=== PATIENT | female | born 1985 | race Hispanic/Latino ===

== ENCOUNTER 2020-11-09 14:06 | Emergency (ER) | payer OTHER, SELFPAY ==
[2020-11-09 14:15] VITALS: BP 142/98; PULSE 86; RESP 16; TEMP 37.2; O2SAT 99
--- NOTE | 2020-11-09 15:08 | ED.URI ---
HPI - URI/Sore Throat General Chief Complaint: Upper Respiratory Infection Stated Complaint: Sore Throat Time Seen by Provider: 11/09/20 14:40 Source: patient, family and RN notes reviewed Mode of arrival: ambulatory Limitations: no limitations History of Present Illness HPI Narrative: 35 year old female who presents to [facility] with complaints of sore throat, cough and runny nose since Tuesday.Patient reports that her throat is burning rates her pain 5/10 and is aggravated with swallowing. She states that her cough is frequent and is dry, Patient denies any fevres, chills or sweats, denies any ear pain or any GI symptoms. She has been taking OTC Tylenol cough and cold medication for her symptoms without resolution. MD elicited complaint: cough, sore throat and rhinorrhea Related Data Home Medications Medication Instructions Recorded Confirmed ergocalciferol (vitamin D2) 11/09/20 erythromycin with ethanol TOPICAL 11/09/20 ferrous sulfate [FeroSul] mg 11/09/20 norethindrone-e.estradiol-iron tablet 11/09/20 [Aurovela Fe 1-20 (28)] sumatriptan succinate mg PO 11/09/20 Allergies Allergy/AdvReac Type Severity Reaction Status Date / Time No Known Allergies Allergy Verified 03/14/19 06:43 Review of Systems Review of Systems: CONSTITUTIONAL: Denies fever, chills, or sweats. EYES: Denies visual changes, redness, or discharge. ENT: Positive for rhinorrhea, congestion, sore throat, no otalgia. CARDIOVASCULAR: Denies chest pain, palpitations, or edema. RESPIRATORY: positive for acute cough denies dyspnea. GASTROINTESTINAL: Denies abdominal pain, nausea, vomiting, or diarrhea. GENITOURINARY: Denies dysuria or hematuria. SKIN: Denies rash or itching. MUSCULOSKELETAL: Denies back pain, joint pain, or myalgia. NEUROLOGIC: Denies headache, numbness, or weakness. PSYCHIATRIC: Denies anxiety or depression. All systems reviewed & are unremarkable except as noted in HPI and below PMFSH Past Medical History Medical History (Updated 11/11/20 @ 16:02 by Radha Lake NP) Acne Anemia Hx of migraines Surgical History Surgical History (Updated 11/11/20 @ 15:56 by Radha Lake NP) History of tubal ligation Family History Family History (Updated 11/11/20 @ 15:57 by Radha Lake NP) Father Diabetes mellitus Liver transplant recipient Mother Diabetes mellitus Social History Social History (Updated 11/11/20 @ 15:58 by Radha Lake NP) Smoking status: Never smoker Alcohol intake: current Alcohol use details: rare social Substance use: never Living arrangements: with family Gender identity (if verbalized by the patient): Female Comments At time of signature, agree with nursing past medical, surgical, social and family history. There is no relevant family history pertinent to the presenting complaint Exam Narrative: GENERAL: Well-appearing, well-nourished, and in no acute distress. HEAD: Normocephalic, atraumatic. EYES: PERRLA and EOMI. ENT: Nares red, clear rhinorrhea no epistaxis. Mucous membranes moist.TM's normal with good light reflex, throat red with no lesions or exudate, mild tonsil enlargement, post nasal drainage NECK: Supple.no lymphadenopathy CHEST: Clear to auscultation. No respiratory distress.cough, SAO2 99% on room air HEART: Regular rate and rhythm. No murmur heard. Normal peripheral pulses. ABDOMEN: Soft, nontender, nondistended, normal active bowel sounds. EXTREMITIES: Normal range of motion. No edema. SKIN: Warm, dry, no rash. NEURO: No focal deficits. Alert and oriented x3. Course Vital Signs Vital signs: Vital Signs Temperature 37.2 C 11/09/20 14:15 Pulse Rate 86 11/09/20 14:15 Respiratory Rate 16 11/09/20 14:15 Blood Pressure 142/98 H 11/09/20 14:15 Pulse Oximetry 99 11/09/20 14:15 Temperature 37.2 C 11/09/20 14:15 Pulse Rate 86 11/09/20 14:15 Respiratory Rate 16 11/09/20 14:15 Blood Pressure 142/98 H 11/09/20
== END 2020-11-09 15:30 | disposition home or self-care (01) ==
PROVIDERS: Emergency Provider Registered Nurse; PCP Family Medicine
DX: J06.9 Acute upper respiratory infection, unspecified (principal); R05 Cough; Z20.822 Contact with and (suspected) exposure to COVID-19
CPT/HCPCS: 87081; 87426; 87880; 99213; C9803; G0463

== ENCOUNTER 2021-08-12 19:28 | Emergency (ER) | payer OTHER, SELFPAY ==
[2021-08-12 19:53] VITALS: BP 161/118; PULSE 84; RESP 18; TEMP 36.5; O2SAT 100
[2021-08-12 20:12] LABS: Basophils Percent Auto 0.4 % (0.2-1.2); Eosinophils Absolute Auto 0.1 K/mm3 (0-0.3); Eosinophils Percent Auto 1.8 % (0-4.4); Hematocrit 26.4 % (37.0-47.0); Hemoglobin 7.7 g/dL (12.0-15.0); Immature Granulocyte Absolute 0.02 K/mm3 (0.00-0.031); Immature Granulocyte Percent A 0.3 % (0-0.5); Lymphocytes Absolute Auto 2.53 K/mm3 (0.9-3.2); Lymphocytes Percent Auto 37.2 % (18.3-44.2); Mean Corpuscular HGB Conc 29.2 g/dl (32-36); Mean Corpuscular Volume 72.1 fl (80-100); Mean Platelet Volume 11.5 fl (7.4-10.4); Monocytes Absolute Auto 0.5 K/mm3 (0.1-0.6); Monocytes Percent Auto 7.8 % (2.6-8.5); Neutrophils Absolute Auto 3.6 K/mm3 (1.3-6.7); Neutrophils Percent Auto 52.5 % (45.5-73.1); Platelet Count Result 238 k/mm3 (150-375); Red Blood Count 3.66 M/mm3 (4.2-5.4); Red Cell Distribution Width 17.8 % (11.5-14.5); White Blood Count 6.8 K/mm3 (4.5-10.0)
[2021-08-12 20:20] LABS: Hypochromasia 1+ (NORMAL); Ovalocytes 1+ (NORMAL); Platelet Estimate Adequate (Adequate)
[2021-08-12 20:24] LABS: Alanine Aminotransferase 25 U/L (6-35); Albumin Level 3.7 g/dL (3.5-5.1); Alkaline Phosphatase 71 U/L (38-126); Anion Gap 6 mmol/L (8-16); Aspartate Amino Transferase 34 U/L (14-36); Bilirubin,Total < 0.1 mg/dL (0.2-1.3); Blood Urea Nitrogen 21 mg/dL (7-17); Calcium 8.5 mg/dL (8.4-10.2); Carbon Dioxide 22 mmol/L (22-30); Chloride 111 mmol/L (98-107); Estimated CRCL calculation 53 ml/min; Estimated Glomerular Filt Rate 37; Glucose 98 mg/dL (65-110); Potassium 4.1 mmol/L (3.4-5.0); Sodium 139 mmol/L (137-145)
--- NOTE | 2021-08-12 22:31 | ED.FEMALEGU ---
HPI - Female Genitourinary General Chief complaint: Vaginal Bleeding Stated complaint: vaginal bleeding Time Seen by Provider: 08/12/21 22:09 History of Present Illness HPI Narrative: 36-year-old female with history of heavy menstrual periods, she states for the last 2 weeks she has been having extensive amounts of bleeding, though it stopped today, she was initially feeling a little more lightheaded at work so she came in. She has already been seeing her [employer] FURNITURE SAW TENDER for this, she has tried multiple control methods without much improvement in her bleeding. Related Data Home Medications Medication Instructions Recorded Confirmed ergocalciferol (vitamin D2) 11/09/20 erythromycin with ethanol TOPICAL 11/09/20 ferrous sulfate [FeroSul] mg 11/09/20 norethindrone-e.estradiol-iron tablet 11/09/20 [Aurovela Fe 1-20 (28)] sumatriptan succinate mg PO 11/09/20 Allergies Allergy/AdvReac Type Severity Reaction Status Date / Time No Known Allergies Allergy Verified 08/12/21 22:57 Review of Systems Review of Systems: CONST: No fever. HEENT: No sore throat C/V: No chest pain RESP: No cough GI: Occasional cramping : Heavy uterine bleeding, now stopped M/S: No joint pain. SKIN: No rash. NEURO: Lightheadedness PSYCH: [No depression] PMFSH Past Medical History Medical History Acne Anemia Hx of migraines Surgical History Surgical History History of tubal ligation Family History Family History Father Diabetes mellitus Liver transplant recipient Mother Diabetes mellitus Social History Social History Smoking status: Never smoker Alcohol intake: current Alcohol use details: rare social Substance use: never Gender identity (if verbalized by the patient): Female Exam Narrative: EXAMINATION OF ORGAN SYSTEMS/BODY AREAS: Constitutional: Vital signs per nursing GENERAL:[No acute distress, non-toxic appearing.] HEAD: Normal with no signs of head trauma. EYES: EOMI, conjunctiva pallor ENT: Hearing grossly intact LUNGS: Nonlabored breathing. HEART: [Regular rate and rhythm] : No adnexal or CMT, Scant amount of blood in vault, no active bleeding ABD: [Soft], [nontender to palpation] EXT: Normal range of motion SKIN: [No rashes or lesions.] NEURO: [Alert and oriented x 3. No gross focal sensory or strength deficits.] PSYCH: Normal affect Course Course Emergency Course: 36-year-old female presenting with heavy menstrual period now stopped, vital signs stable here, exam shows well-appearing patient who is able to ambulate without issues, I have concern for menorrhagia with anemia requiring blood transfusion versus less likely as she has tubal ligation and is on Depo-Provera, versus tumor, hemoglobin here is 7.7 which is down 3 points from baseline, however I do not feel it is urgent to transfuse the patient at this time as she is not having any more bleeding on exam, I did feel she would benefit from close follow-up with her PROTECTIVE SERVICES SOCIAL WORKER to figure out a better treatment plan, I did suggest starting ibuprofen as needed, no medication for TXA orally at this time as she is no longer having any acute bleeding. Discharged home and urged to return if she has any further episodes of vaginal bleeding. Vital Signs Vital signs: Vital Signs Temperature 97.7 F 08/12/21 19:53 Pulse Rate 84 08/12/21 19:53 Respiratory Rate 18 08/12/21 19:53 Blood Pressure 161/118 H 08/12/21 19:53 Pulse Oximetry 100 08/12/21 19:53 Temperature 97.7 F 08/12/21 19:53 Pulse Rate 76 08/12/21 23:31 Respiratory Rate 20 08/12/21 23:31 Blood Pressure 146/88 H 08/12/21 23:31 Pulse Oximetry 97 08/12/21 23:31 MDM - Female Genitourinary Differential Diagnosis Differential diagnosis: Likely dysmenorrhea
[2021-08-12 22:40] VITALS: BP 160/101; PULSE 77; RESP 16; O2SAT 100
[2021-08-12 23:31] VITALS: BP 146/88; PULSE 76; RESP 20; O2SAT 97
== END 2021-08-12 23:47 | disposition home or self-care (01) ==
LOC: ANHED 23:34
PROVIDERS: Emergency Medicine; Emergency Provider Emergency Medicine; PCP Family Medicine
DX: N93.8 Other specified abnormal uterine and vaginal bleeding (principal)
CPT/HCPCS: 36415; 80053; 81025; 85025; 99283

== ENCOUNTER 2021-08-14 23:57 | Emergency (ER) | payer OTHER, SELFPAY ==
[2021-08-15 00:07] VITALS: BP 175/109; PULSE 82; RESP 16; TEMP 36.4; O2SAT 100
--- NOTE | 2021-08-15 00:52 | ED.FEMALEGU ---
HPI - Female Genitourinary General Chief complaint: Vaginal Bleeding Stated complaint: vaginal bleeding and cramping Time Seen by Provider: 08/15/21 00:45 Source: patient History of Present Illness HPI Narrative: Patient presents with vaginal bleeding. Reports a history of dysfunctional uterine bleeding requiring a blood transfusion. She has had intermittent bleeding over the past couple weeks she has been seeing her primary care doctor has been trying various controls most recently has been on Nexplanon checked approximately 3 weeks ago. Her symptoms were not improving so she came to the ER a couple days ago reported her bleeding had stopped but she was feeling fatigue and was unsure if she required a blood transfusion. She discharged home from that encounter instructed continue outpatient evaluation. Since that time she has had increasing bleeding tonight she required 6 pads she was concerned so she came to the ER. Towards lower abdominal cramping she denies any nausea or vomiting she has ports of lightheadedness and fatigue denies any urinary symptoms or diarrhea. Related Data Home Medications Medication Instructions Recorded Confirmed ergocalciferol (vitamin D2) 11/09/20 erythromycin with ethanol TOPICAL 11/09/20 ferrous sulfate [FeroSul] mg 11/09/20 norethindrone-e.estradiol-iron tablet 11/09/20 [Aurovela Fe 1-20 (28)] sumatriptan succinate mg PO 11/09/20 Allergies Allergy/AdvReac Type Severity Reaction Status Date / Time No Known Allergies Allergy Verified 08/12/21 22:57 Review of Systems Review of Systems: CONSTITUTIONAL: Denies fever, chills, or sweats. EYES: Denies visual changes, redness, or discharge. ENT: Denies rhinorrhea, congestion, sore throat, or otalgia. CARDIOVASCULAR: Denies chest pain, palpitations, or edema. RESPIRATORY: Denies cough or dyspnea. GASTROINTESTINAL: Denies abdominal pain, nausea, vomiting, or diarrhea. GENITOURINARY: Denies dysuria or hematuria. SKIN: Denies rash or itching. MUSCULOSKELETAL: Denies back pain, joint pain, or myalgia. NEUROLOGIC: Denies headache, numbness, dizziness, or focal weakness. PSYCHIATRIC: Denies anxiety or depression. All systems reviewed & are unremarkable except as noted in HPI and below PMFSH Past Medical History Medical History Acne Anemia Hx of migraines Surgical History Surgical History History of tubal ligation Family History Family History Father Diabetes mellitus Liver transplant recipient Mother Diabetes mellitus Social History Social History Smoking status: Never smoker Alcohol intake: current Alcohol use details: rare social Substance use: never Gender identity (if verbalized by the patient): Female Exam Narrative: GENERAL: Well-appearing, well-nourished, and in no acute distress. HEAD: Normocephalic, atraumatic. EYES: PERRLA and EOMI. ENT: Nares clear, no rhinorrhea or epistaxis. Mucous membranes moist. NECK: Supple. No masses. No JVD ABDOMEN: Soft, nontender, nondistended, normal active bowel sounds. EXTREMITIES: Normal range of motion. No edema. : Area exam there is a moderate amount of dark blood in the vaginal vault no clots no active bleeding from the cervical os SKIN: Warm, dry, no rash. NEURO: No focal deficits. Alert and oriented x3. PSYCH: Normal mood and affect. Course Reevaluation(s) Reevaluation #1: Patient resting comfortably is feeling improved denies any lightheadedness or dizziness. Results and plan reviewed with patient patient is comfortable outpatient plan. Case was discussed with FOOD SAFETY AUDITOR who will assist with close outpatient follow-up they recommend premerin as an outpatient. Date: 08/15/21 Time: 05:42 Vital Signs Vital signs: Vital Signs Temperature 3
[2021-08-15 03:08] LABS: Basophils Percent Auto 0.4 % (0.2-1.2); Eosinophils Absolute Auto 0.2 K/mm3 (0-0.3); Eosinophils Percent Auto 2.3 % (0-4.4); Hematocrit 25.3 % (37.0-47.0); Hemoglobin 7.3 g/dL (12.0-15.0); Immature Granulocyte Absolute 0.02 K/mm3 (0.00-0.031); Immature Granulocyte Percent A 0.3 % (0-0.5); Lymphocytes Absolute Auto 2.89 K/mm3 (0.9-3.2); Mean Corpuscular HGB Conc 28.9 g/dl (32-36); Mean Corpuscular Volume 72.9 fl (80-100); Mean Platelet Volume 11.7 fl (7.4-10.4); Monocytes Absolute Auto 0.5 K/mm3 (0.1-0.6); Monocytes Percent Auto 7.2 % (2.6-8.5); Neutrophils Absolute Auto 3.8 K/mm3 (1.3-6.7); Neutrophils Percent Auto 50.8 % (45.5-73.1); Platelet Count Result 218 k/mm3 (150-375); Red Blood Count 3.47 M/mm3 (4.2-5.4); White Blood Count 7.4 K/mm3 (4.5-10.0)
[2021-08-15 03:18] LABS: INR 1.2; Prothrombin Time 14.3 Seconds (11.1-14.7)
[2021-08-15 03:19] LABS: Partial Thromboplastin Time 33.4 SECONDS (22.3-36.8)
[2021-08-15 03:23] LABS: Alanine Aminotransferase 22 U/L (6-35); Albumin Level 3.7 g/dL (3.5-5.1); Alkaline Phosphatase 64 U/L (38-126); Anion Gap 10 mmol/L (8-16); Aspartate Amino Transferase 28 U/L (14-36); Bilirubin,Total < 0.1 mg/dL (0.2-1.3); Blood Urea Nitrogen 32 mg/dL (7-17); Calcium 8.1 mg/dL (8.4-10.2); Carbon Dioxide 18 mmol/L (22-30); Chloride 113 mmol/L (98-107); Estimated CRCL calculation 48 ml/min; Estimated Glomerular Filt Rate 32; Glucose 94 mg/dL (65-110); Potassium 4.4 mmol/L (3.4-5.0); Sodium 141 mmol/L (137-145)
[2021-08-15 03:25] LABS: Hypochromasia 2+ (NORMAL); Microcytosis 1+ (NORMAL); Platelet Estimate Adequate (Adequate)
[2021-08-15 03:40] LABS: Beta HCG Quantitative < 2.39 mIU/ML
[2021-08-15] MEDS: SODIUM CHLORIDE 0.9% IV 1,000 ML 999 ML IV CONT (03:54)
[2021-08-15 05:40] VITALS: BP 143/94; PULSE 74; RESP 18; O2SAT 100
[2021-08-15 06:09] VITALS: BP 150/94; PULSE 78; RESP 18; O2SAT 100
== END 2021-08-15 06:11 | disposition home or self-care (01) ==
PROVIDERS: Emergency Provider Emergency Medicine; PCP Family Medicine
DX: N93.8 Other specified abnormal uterine and vaginal bleeding (principal); D64.9 Anemia, unspecified
CPT/HCPCS: 36415; 80053; 81025; 84702; 85025; 85610; 85730; 86850; 86900; 86901; 96360; 99284; J7030

== ENCOUNTER 2021-09-07 01:51 | Day surgery (SDC) | payer OTHER, SELFPAY ==
[2021-09-04 08:33] VITALS: BMI 39.4
--- NOTE | 2021-09-04 08:39 | PC.NURSE ---
Report to the Outpatient Waiting Room, entrance under the green pavilion located off [facility], at time 1200 on date 09/07/21. OR Time: 1400. - You and your visitor will be asked a series of questions to screen for COVID 19 for your protection. - Only one visitor is allowed at this time. - The patient visitor is requested to leave or wait in car when not with patient. - A mask is required within the hospital. Patients may have clear liquids (water, carbonated beverages, clear teas, apple juice) until 3 hours prior to surgery with a maximum of 20 ounces. - No food from midnight until time of surgery Take the following medications with a SIP of water the morning of surgery: NONE Medications to discontinue per physician: TRANEXAMIC ACID Date to take last dose: CALL DR. GUY Please no make-up, nail honduran, hairspray, perfume, deodorant, or body powder the day of surgery. No jewelry (including any body piercings) or valuables the day of surgery, leave them at home. Please take a shower or bath the night before, or the morning of, surgery with an antibacterial soap. Wear comfortable, loose fitting clothing. - Jewelry must be removed prior to entering the operating room. Rings and piercings that are not removed may be cut off. - The hospital will not accept responsibility for valuables. - Please leave all valuables, including medications, at home the day of surgery. If you are going home after surgery, a licensed stacker driver must drive you home. - NO public transportation without another adult. - We recommend that an adult stay with you for 24 hours following discharge. - We also recommend that you do not drive, make important decision, drink alcoholic beverages, or take any drugs that were not prescribed by your health care provider for at least 24 hours after your discharge time. Follow any additional instructions given to you from your surgeon. If you or anyone in your household have experienced Covid symptoms in the past week, please notify your surgeon or the nurse liaison at the phone number below for possible testing. Telephone instructions given to PT - AMADEO WOLFF and asked if any additional questions and then verbalized understanding. Patient advised to call surgeon office or pre surgery nurse liaison [phone] if any additional questions.
--- NOTE | 2021-09-04 13:49 | WPDANESEPPF ---
Anes - Initial Pre Proc Eval Procedure: Operation Date: 09/07/21 14:00 Proposed Procedures p Hysteroscopy Dilation and Curettage Kassy Endometrial Ablation - Gilbert Brothers MD Date/Time: 09/04/21 13:49 Surgeon: Gilbert Brothers MD Pre Op Diagnosis: menorrhagia ,severe anemia Patient Data Age: 36 Gender: F Height: 1.63 m Weight: 104.33 kg Allergies Allergy/AdvReac Type Severity Reaction Status Date / Time No Known Allergies Allergy Verified 09/04/21 08:31 Home Medications Medication Instructions Recorded Confirmed Type ibuprofen 600 mg tablet 600 mg PO TID 08/25/21 09/04/21 History tranexamic acid 650 mg tablet 1,300 mg PO TID 09/04/21 09/04/21 History Results Review: All pre-operative results and documents have been reviewed as part of the pre-operative evaluation. [facility] Past Medical History Medical History (Updated 09/04/21 @ 13:49 by Darryl Simon MD) Acne Anemia Hx of migraines Obesity Surgical History Surgical History History of tubal ligation Family History Family History (Updated 08/26/21 @ 06:24 by Chetna Steele) Father Diabetes mellitus Liver transplant recipient Mother Diabetes mellitus Grandparent Diabetes mellitus Breast cancer Social History Social History Smoking status: Never smoker Alcohol intake: never Alcohol use details: rare social Substance use: never Substance use type: does not use Living arrangements: with family Additional living arrangements comments: CHILDREN Gender identity (if verbalized by the patient): Female Spiritual care concerns: No Anes - Eval Final PreProcedure Day of Procedure 09/04/21 13:49 Patient weight: obese Heart: regular rate and rhythm Lungs: clear to auscultation and normal air movement Airway: Mallampati scale class II Neurological: alert and oriented Last oral intake: >/= 8 hours ASA classification: II Emergent: no Anesthetic plan: proceed Anesthesia type and monitoring: general GIVS and LMA Results Review: All pre-operative results and documents have been reviewed as part of the pre-operative evaluation. Informed Consent: The patient's anesthetic plan and its attendant risks and benefits were discussed with the patient/family/POA. Questions were solicited and answers provided to the satisfaction of the patient/family/POA.
--- NOTE | 2021-09-07 10:28 | PM.IMHP ---
H&P: HPI History of Present Illness Date/Time: 09/07/21 10:28 Chief Complaint: Heavy periods Narrative: Patient has a long history of heavy periods since menarche. Menorrhagia has been increasing over the past 2 years. She has been tried on multiple hormonal contraception options without relief. We have discussed IUD progesterone only. She has severe anemia requiring blood transfusions and she is scheduled for iron infusion. Recent endometrial biopsy was normal. She had an ultrasound ordered but was unable to do it and since last visit she went to ED at [facility] and had blood transfusion last week. The plan after her last visit was to be scheduled for hysterectomy. She was scheduled for iron infusions presurgery. Discussed with her that the endometrial ablation can be scheduled sooner than the hysterectomy and has less recovery, she wants to do this since she has missed a lot of worked due to the bleeding. If it doesn't resolve with ablation then she will proceed with hysterectomy. Review of Systems Review of Systems: All systems reviewed & are unremarkable except as noted in HPI and below Constitutional: Constitutional: Reports no additional constitutional complaints Eyes: Eyes: Reports no additional eye complaints Cardiovascular: Cardiovascular: Reports no additional cardiovascular complaints Respiratory: Respiratory: Reports no additional respiratory complaints Gastrointestinal: Gastrointestinal: Reports no additional gastrointestinal complaints Genitourinary: Genitourinary: Reports no additional female genitourinary complaints and Reports as per HPI Integumentary/Breasts: Skin/Breast: Reports system reviewed and no additional complaints, except as docu Neurologic: Reports system reviewed and no additional complaints, except as documented Psychiatric: Psychiatric: Reports no additional psychiatric complaints Hematologic/Lymphatic: Hematologic/Lymphatic: Reports no additional hematologic/lymphatic complaints [facility] Past Medical History Medical History (Updated 09/07/21 @ 10:51 by Gilbert Brothers MD) Acne Anemia Hx of migraines Obesity Surgical History Surgical History History of tubal ligation Family History Family History (Updated 08/26/21 @ 06:24 by Chetna Steele) Father Diabetes mellitus Liver transplant recipient Mother Diabetes mellitus Grandparent Diabetes mellitus Breast cancer Social History Social History Smoking status: Never smoker Alcohol intake: never Alcohol use details: rare social Substance use: never Substance use type: does not use Living arrangements: with family Additional living arrangements comments: CHILDREN Gender identity (if verbalized by the patient): Female Spiritual care concerns: No Meds Home Medications and Allergies Home Medications Medication Instructions Recorded Confirmed Type ibuprofen 600 mg tablet 600 mg PO TID 08/25/21 09/07/21 History tranexamic acid 650 mg tablet 1,300 mg PO TID 09/04/21 09/07/21 History Allergies Allergy/AdvReac Type Severity Reaction Status Date / Time No Known Allergies Allergy Verified 09/07/21 12:47 Exam Const: General: comfortable and no acute distress Orientation/consciousness: oriented to person, oriented to place and oriented to time Eyes: General: appearance normal, both eyes and all related structures Neck: Neck: normal visual inspection Resp: Effort & Inspection: normal respiratory effort Auscultation: clear to auscultation bilaterally Cardio: Rate: regular rate Rhythm: regular rhythm GI: Inspection: normal to inspection GI Palp: No Tenderness to palpation present (GI) and Yes No hepatosplenomegaly present : External Female Exam: normal external appearance Speculum Exam - Vagina: normal appearance of the vagina Speculum Exam - Cervix: normal appearance of the cer
[2021-09-07 12:48] VITALS: BP 136/93; PULSE 78; RESP 18; TEMP 37.1; O2SAT 100
[2021-09-07 13:01] LABS: Hematocrit 24.2 % (37.0-47.0)
[2021-09-07] MEDS: ACETAMINOPHEN 500 MG TABLET 1000 MG PO (13:01)
[2021-09-07] MEDS: LACTATED RINGERS 1,000 ML 30 ML IV CONT (13:01)
[2021-09-07 13:11] LABS: Hemoglobin 6.8 g/dL (12.0-15.0)
--- NOTE | 2021-09-07 13:39 | WPDANESEPPF ---
Anes - Initial Pre Proc Eval Procedure: Operation Date: 09/07/21 14:00 Proposed Procedures p Hysteroscopy Dilation and Curettage Kassy Endometrial Ablation - Gilbert Brothers MD Date/Time: 09/07/21 13:39 Surgeon: Gilbert Brothers MD Pre Op Diagnosis: menorrhagia ,severe anemia Patient Data Age: 36 Gender: F Height: 1.63 m Weight: 101.8 kg Last Vital Signs Temp 37.1 C 09/07/21 12:48 Pulse 78 09/07/21 12:48 Resp 18 09/07/21 12:48 BP 136/93 H 09/07/21 12:48 Pulse Ox 100 09/07/21 12:48 O2 Del Method Room Air 09/07/21 12:48 Allergies Allergy/AdvReac Type Severity Reaction Status Date / Time No Known Allergies Allergy Verified 09/07/21 12:47 Home Medications Medication Instructions Recorded Confirmed Type ibuprofen 600 mg tablet 600 mg PO TID 08/25/21 09/07/21 History tranexamic acid 650 mg tablet 1,300 mg PO TID 09/04/21 09/07/21 History Laboratory Tests 09/07/21 12:26 Hgb 6.8 g/dL L* g/dL (12.0-15.0) Hct 24.2 % L % (37.0-47.0) Patient hx anesthesia problems: none Family hx anesthesia problems: none Results Review: All pre-operative results and documents have been reviewed as part of the pre-operative evaluation. [facility] Past Medical History Medical History (Updated 09/07/21 @ 10:51 by Gilbert Brothers MD) Acne Anemia Hx of migraines Obesity Surgical History Surgical History History of tubal ligation Family History Family History (Updated 08/26/21 @ 06:24 by Chetna Steele) Father Diabetes mellitus Liver transplant recipient Mother Diabetes mellitus Grandparent Diabetes mellitus Breast cancer Social History Social History Smoking status: Never smoker Alcohol intake: never Alcohol use details: rare social Substance use: never Substance use type: does not use Living arrangements: with family Additional living arrangements comments: CHILDREN Gender identity (if verbalized by the patient): Female Spiritual care concerns: No Anes - Eval Final PreProcedure Day of Procedure 09/07/21 13:39 Patient weight: obese Heart: regular rate and rhythm Lungs: clear to auscultation Airway: Mallampati scale class II Neurological: alert and oriented Last oral intake: >/= 8 hours ASA classification: II Emergent: no Anesthetic plan: proceed Anesthesia type and monitoring: general GIVS and standard monitoring Results Review: All pre-operative results and documents have been reviewed as part of the pre-operative evaluation. Informed Consent: The patient's anesthetic plan and its attendant risks and benefits were discussed with the patient/family/POA. Questions were solicited and answers provided to the satisfaction of the patient/family/POA.
--- NOTE | 2021-09-07 14:06 | WPDHPUPDATE1 ---
History and Physical Update Update Date/Time: 09/07/21 14:06 History and Physical has been reviewed, including an updated exam of the patient. There are NO changes in the patient's condition. Risks, benefits, and alternatives have been discussed and questions answered. Patient agrees to proceed with procedure.
[2021-09-07] MEDS: ceFAZolin 2 GM/D5W 50 ML 2 GM/50 ML BAG IVPB (14:13)
[2021-09-07 14:51] VITALS: BP 141/88; PULSE 77; RESP 14; O2SAT 100
--- NOTE | 2021-09-07 15:02 | W.PM.PROC2 ---
Procedure Note - Detailed Date of Procedure 09/07/21 Pre-op Diagnosis menorrhagia ,severe anemia Post-op Diagnosis Same Procedure Performed Diagnostic hysteroscopy with kassy endometrial ablation. Surgeon Gilbert Brothers MD Anesthesia MAC and Local Indications Menorrhagia and severe anemia resistant to hormonal management, normal endometrial biopsy. Findings uterus sound to 8cm, cervical length 4 cm, uterine cavity normal. insufflation fluid of normal saling 450cc in 400cc out. Description of Procedure After informed consent was obtained patient was taken to the operating room and adequate IV sedation was administered. Attention was turned to the vagina. Speculum was inserted. Single-tooth tenaculum placed on the anterior lip of the cervix. The uterus was sounded to 8 cm. The cervix was dilated to an 8 Moody dilator. The cervical length was 4cm . The hysteroscope was inserted into the cavity. Minimal endometrial tissue noted. The findings were a normal uterine cavity. The hysteroscope was removed. The Kassy ablation instrument was inserted into the cavity. Cavity assessment was performed and confirmed intact. The ablation was enabled. After 120 seconds the Kassy stopped. The ablation instrument was removed. The hysteroscope was inserted and there was noted to be good eschar with the cavity. The hysteroscope was removed the single-tooth tenaculum was removed hemostasis was noted at the tenaculum site. Sponge count correct. The patient taken to recovery in stable condition. Estimated Blood Loss 5 Drains No Packing No Pathology None sent Complications No immediate complications Condition Stable Disposition Same day [facility] Billing Surgery - Charge Forward: Surgery Billing
[2021-09-07 15:15] VITALS: BP 125/71; PULSE 68; RESP 20
[2021-09-07] MEDS: oxyCODONE HCL (*CRX) 5 MG TAB IR PO (15:21)
[2021-09-07 15:45] VITALS: BP 146/86; PULSE 65; RESP 20
[2021-09-07 16:15] VITALS: BP 141/87; PULSE 65; RESP 20
== END 2021-09-07 16:20 | disposition home or self-care (01) ==
PROVIDERS: Anesthesiology; PCP Family Medicine; Visit Provider Obstetrics & Gynecology
PROC: 0U5B8ZZ Destruction of Endometrium, Via Natural or Artificial Opening Endoscopic (ICD-10-PCS; CPT 58563; principal; 2021-09-07 14:00)
DX: N92.0 Excessive and frequent menstruation with regular cycle (principal); D64.9 Anemia, unspecified; E66.9 Obesity, unspecified; Z68.38 Body mass index [BMI] 38.0-38.9, adult
CPT/HCPCS: 58563; 36415; 85014; 85018; A9270; J0690; J2250; J2704; J3010; J7030; J7120

== ENCOUNTER 2021-10-08 14:44 | Outpatient (CLI) | payer OTHER, SELFPAY ==
--- NOTE | ~2021-10-08 | US_ITS ---
EXAMINATION: US pelvic complete w TV DATE: 10/08/2021 16:13 INDICATION: Abnormal uterine bleeding Comparison:No prior studies for comparison. TECHNIQUE: Multiple transabdominal and endovaginal sonographic images of the pelvis performed. FINDINGS: The uterus measures 9.8 x 5.3 x 6.7 cm. Myometrium is heterogeneous, although no discrete m ass identified. The endometrial complex measures 10 mm. The right ovary measures 3.6 x 2.3 x 2.5 cm and the left ovary is not visualized. There is a right ov kristy cyst measuring 1.8 cm. There are small follicles in each ovary. Normal doppler signal in both o varies. There is no free fluid in the pelvis. There are no abnormal masses seen on either side. IMPRESSION: 1. Right ovarian cyst measuring 1.8 cm. Reviewed, dictated and finalized at location A.
== END 2021-10-08 14:45 | disposition home or self-care (01) ==
LOC: ANHIMG 14:44
PROVIDERS: PCP Family Medicine; Visit Provider Obstetrics & Gynecology
DX: N93.9 Abnormal uterine and vaginal bleeding, unspecified (principal); N83.201 Unspecified ovarian cyst, right side
CPT/HCPCS: 76830; 76856

== ENCOUNTER 2022-03-03 14:51 | Outpatient (CLI) | payer OTHER, SELFPAY ==
[2022-03-03 15:07] LABS: Mean Corpuscular HGB Conc 30.6 g/dl (32-36); Mean Corpuscular Hemoglobin 23.5 pg (26-34); Mean Corpuscular Volume 76.9 fl (80-100); Mean Platelet Volume 10.4 fl (7.4-10.4); Platelet Count Result 280 k/mm3 (150-375); Red Blood Count 4.68 M/mm3 (4.2-5.4)
== END 2022-03-03 14:52 | disposition home or self-care (01) ==
LOC: ANHLAB 14:52
PROVIDERS: PCP Family Medicine; Visit Provider Obstetrics & Gynecology
DX: D50.0 Iron deficiency anemia secondary to blood loss (chronic) (principal)
CPT/HCPCS: 36415; 85027

== ENCOUNTER 2022-06-01 17:01 | Emergency (ER) | payer OTHER, SELFPAY ==
--- NOTE | 2022-06-01 17:06 | ED.BACK ---
HPI - Back Pain/Injury General Chief Complaint: Back Pain/Injury Stated Complaint: back pain Time Seen by Provider: 06/01/22 17:07 Source: patient Mode of arrival: ambulatory Limitations: no limitations History of Present Illness HPI Narrative: Natalie is a 37-year-old female patient presenting to the clinic today with complaints of back pain x 3 days. She reports she has had back pain her whole life over the last 3 days her back pain has gotten worse. 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 She reports that the pain is burning in her lumbar spine and into the left lower flank. Pain is sharp when she is twisting and bending. She denies any urinary symptoms. Last menstrual period. History of tubal ligation. Denies any saddle anesthesia or loss of bowel or bladder. Related Data Home Medications Medication Instructions Recorded Confirmed minocycline 100 mg tablet 100 mg PO DIRECTED 06/01/22 06/01/22 Allergies Allergy/AdvReac Type Severity Reaction Status Date / Time No Known Allergies Allergy Verified 06/01/22 17:06 Review of Systems Review of Systems: Pertinent positives per HPI. Patient denies any fever, chills, rash, headache, visual changes, dizziness, cough, runny nose, sore throat, shortness of breath, chest pain, palpitations, nausea, vomiting, diarrhea, constipation, abdominal pain, or any urinary issues. [facility] Past Medical History Medical History Acne Anemia Hx of migraines Obesity Surgical History Surgical History History of hysteroscopy History of tubal ligation S/P endometrial ablation Family History Family History Father Diabetes mellitus Liver transplant recipient Mother Diabetes mellitus Grandparent Diabetes mellitus Breast cancer Social History Social History Smoking status: Never smoker Alcohol intake: never Alcohol use details: rare social Substance use: never Substance use type: does not use Living arrangements: with family Additional living arrangements comments: CHILDREN Gender identity (if verbalized by the patient): Female Spiritual care concerns: No Comments At the time of my signature, I reviewed and agree with the nursing past medical, surgical, social, and family history. There is no relevant family history pertinent to the patient complaint. Exam Narrative: General: Well-developed, morbidly obese, in no apparent distress Head: Normocephalic, atraumatic. Cardio: Regular rate and rhythm, s1 and s2 normal, no murmur appreciated. Resp: Clear to auscultation bilaterally, no rhonchi, rales, wheezing or rubs. Musculoskeletal: No deformity, tender to palpation over the lumbar spine and paraspinous muscles, pain with flexion and extension of the low back, grossly normal range of motion, bilateral lower muscle strength strong and equal, patellar reflexes 2+, peripheral pulse strong, no edema, no cyanosis, normal gait and station Course Course Emergency Course: Portions of this record may have been created with voice recognition software. Level of Care: Express Care Visit Vital Signs Vital signs: Vital signs reviewed MDM - Back Pain/Injury MDM Narrative Medical decision making narrative: At the time of visit patient is resting comfortably on the exam table. Urinalysis was performed and showed 2+ protein and trace of blood. Patient is currently on her menses. I suspect patient has a lumbar strain. Supportive measures were discussed with the patient she voiced understanding of discharge instructions and agrees to treatment plan. Differential Diagnosis Differential diagnosis: Likely lumbar radiculopathy, sciatica, strain of lumbar region, pyelonephritis, discitis
[2022-06-01 17:09] VITALS: BP 162/101; PULSE 68; RESP 16; TEMP 36.6; O2SAT 99
== END 2022-06-01 17:30 | disposition home or self-care (01) ==
PROVIDERS: Emergency Provider Nurse Practitioner Family; PCP Family Medicine
DX: S39.012A Strain of muscle, fascia and tendon of lower back, initial encounter (principal); X58.XXXA Exposure to other specified factors, initial encounter
CPT/HCPCS: 81003; 87086; 99213; G0463

== ENCOUNTER 2022-07-19 15:07 | Outpatient (CLI) | payer OTHER, SELFPAY ==
[2022-07-19 15:46] LABS: Hematocrit 36.1 % (37.0-47.0)
== END 2022-07-19 15:08 | disposition home or self-care (01) ==
LOC: ANHSURGERY 15:10
PROVIDERS: Anesthesiology; PCP Family Medicine; Visit Provider Obstetrics & Gynecology
DX: N92.0 Excessive and frequent menstruation with regular cycle (principal); D50.0 Iron deficiency anemia secondary to blood loss (chronic); Z01.818 Encounter for other preprocedural examination
CPT/HCPCS: 36415; 85014; 85018; 86850; 86900; 86901

== ENCOUNTER 2022-07-21 00:14 | Day surgery (SDC) | payer OTHER, SELFPAY ==
[2022-07-13 12:27] VITALS: BMI 44.6
--- NOTE | 2022-07-13 12:31 | PC.NURSE ---
Report to the Outpatient Waiting Room, entrance under the green pavilion located off [facility], at time 6:00 on date 07/21/22. Planned Procedure Time: 7:30. Time changes happen often and if your time is changed the preop area will call you the afternoon before. - You and your visitor will be asked to self-screen and do not enter if you have any COVID symptoms. - A mask is optional within the hospital at this time. Patients may have clear liquids (water, carbonated beverages, clear teas, apple juice) until 3 hours prior to surgery with a maximum of 20 ounces. - No food from midnight until time of surgery - Infants may have breast milk until 4 hours before surgery, infant formula 6 hours prior to surgery. - Children will be allowed to drink immediately following surgery. If applicable, please bring a bottle or sippy cup to assist with drinking. Juice, water, soda, and popsicles are readily available. For infants on formula, please bring formula the day of surgery. Pacifiers are allowed. Take the following medications with a SIP of water the morning of surgery: MINOCYCLINE DO NOT STOP ANY OF YOUR OTHER PRESCRIPTION MEDICATIONS PRIOR TO SURGERY EXCEPT THE FOLLOWING Medications to discontinue per physician: VITAMINS/SUPPLEMENTS Date to take last dose: 07/16/22 Please no make-up, nail citizen of [place], hairspray, perfume, deodorant, or body powder the day of surgery. No jewelry (including any body piercings) or valuables the day of surgery, leave them at home. Please take a shower or bath the night before, or the morning of, surgery with an antibacterial soap. Wear comfortable, loose fitting clothing. - Jewelry must be removed prior to entering the operating room. Rings and piercings that are not removed may be cut off. - The hospital will not accept responsibility for valuables. - Please leave all valuables, including medications, at home the day of surgery. If you are going home after surgery, a licensed electric truck driver must drive you home. - NO public transportation without another adult if you receive anesthesia. - We recommend that an adult stay with you for 24 hours following discharge. - We also recommend that you do not drive, make important decision, drink alcoholic beverages, or take any drugs that were not prescribed by your health care provider for at least 24 hours after your discharge time. Follow any additional instructions given to you from your surgeon. If you or anyone in your household have experienced Covid symptoms in the past week, please notify your surgeon or the nurse liaison at the phone number below for possible testing. Telephone instructions given to MANOHAR WOLFF and asked if any additional questions and then verbalized understanding. Patient advised to call surgeon office or pre surgery nurse liaison [phone] if any additional questions.
--- NOTE | 2022-07-20 04:30 | PM.IMHP ---
H&P: HPI History of Present Illness Date/Time: 07/20/22 04:30 Chief Complaint: Menometrorrhagia Narrative: She has a long history of menomentrorrhagia. She has required blood transfusion in the past. She did have an endometrial ablation in August 2021 which initially helped and then she started having prolonged period within six months after ablation. She has mild anemia. She has had to miss work in the past due to the heavy period and she does not want to risk that anymore. She wants definitive treatment with hysterectomy. Review of Systems Review of Systems: All systems reviewed & are unremarkable except as noted in HPI and below Constitutional: Constitutional: Reports no additional constitutional complaints Eyes: Eyes: Reports no additional eye complaints Cardiovascular: Cardiovascular: Reports no additional cardiovascular complaints Respiratory: Respiratory: Reports no additional respiratory complaints Gastrointestinal: Gastrointestinal: Reports no additional gastrointestinal complaints Genitourinary: Genitourinary: Reports no additional female genitourinary complaints and Reports as per HPI Integumentary/Breasts: Skin/Breast: Reports system reviewed and no additional complaints, except as docu Neurologic: Reports system reviewed and no additional complaints, except as documented Psychiatric: Psychiatric: Reports no additional psychiatric complaints Hematologic/Lymphatic: Hematologic/Lymphatic: Reports no additional hematologic/lymphatic complaints [facility] Past Medical History Medical History Acne Anemia Hx of migraines Morbid obesity Surgical History Surgical History History of hysteroscopy History of tubal ligation S/P endometrial ablation Family History Family History Father Diabetes mellitus Liver transplant recipient Mother Diabetes mellitus Grandparent Diabetes mellitus Breast cancer Social History Social History Smoking status: Never smoker Alcohol intake: current Alcohol use details: RARE Substance use: never Substance use type: does not use Living arrangements: with family Additional living arrangements comments: CHILDREN Gender identity (if verbalized by the patient): Female Spiritual care concerns: No Meds Home Medications and Allergies Home Medications Medication Instructions Recorded Confirmed Type phentermine 37.5 mg capsule 37.5 mg PO DAILY #30 caps 06/24/22 07/13/22 Rx ferrous sulfate 325 mg (65 mg 325 mg PO DAILY 07/13/22 07/13/22 History iron) tablet (Iron (ferrous sulfate)) minocycline 100 mg tablet 100 mg PO BID 07/13/22 07/13/22 History multivitamin 1 tablet PO DAILY 07/13/22 07/13/22 History Allergies Allergy/AdvReac Type Severity Reaction Status Date / Time No Known Allergies Allergy Verified 07/13/22 12:25 Exam Const: General: comfortable and no acute distress Orientation/consciousness: oriented to person, oriented to place and oriented to time Eyes: General: appearance normal, both eyes and all related structures Neck: Neck: normal visual inspection Resp: Effort & Inspection: normal respiratory effort Auscultation: clear to auscultation bilaterally Cardio: Rate: regular rate Rhythm: regular rhythm GI: Inspection: normal to inspection GI Palp: No abdominal tenderness and Yes No hepatosplenomegaly present : External Female Exam: normal external appearance Speculum Exam - Vagina: normal appearance of the vagina Speculum Exam - Cervix: normal appearance of the cervix Bimanual exam- vagina & uterus: normal bimanual exam, uterine mobility normal, uterine shape normal and non-tender Bimanual Exam- Adnexa, other: no masses and No adnexal tenderness Skin: General skin exam: normal color Neuro:
[2022-07-21] VITALS (11 sets, daily range): BP systolic 97–151; BP diastolic 53–100; PULSE 54–97; RESP 10–20; TEMP 36.1–37.3; O2SAT 99–100
--- NOTE | 2022-07-21 06:23 | P.PNAN_ITS ---
Anes - Initial Pre Proc Eval Procedure: Operation Date: 07/21/22 07:30 Proposed Procedures p Robotic Total Hysterectomy with Bilateral Salpingectomy - Gilbert Brothers MD Date/Time: 07/21/22 06:23 Surgeon: Gilbert Brothers MD Pre Op Diagnosis: Menorrhagia, Dysmenorrhea Patient Data Age: 37 Gender: F Height: 1.56 m Weight: 108.9 kg Allergies Allergy/AdvReac Type Severity Reaction Status Date / Time No Known Allergies Allergy Verified 07/13/22 12:25 Home Medications Medication Instructions Recorded Confirmed Type phentermine 37.5 mg capsule 37.5 mg PO DAILY #30 caps 06/24/22 07/13/22 Rx ferrous sulfate 325 mg (65 mg 325 mg PO DAILY 07/13/22 07/13/22 History iron) tablet (Iron (ferrous sulfate)) minocycline 100 mg tablet 100 mg PO BID 07/13/22 07/13/22 History multivitamin 1 tablet PO DAILY 07/13/22 07/13/22 History Patient hx anesthesia problems: none Family hx anesthesia problems: none Results Review: All pre-operative results and documents have been reviewed as part of the pre- operative evaluation. [facility]LY [facility], [facility] Past Medical History Medical History Acne Anemia Hx of migraines Morbid obesity Surgical History Surgical History History of hysteroscopy History of tubal ligation S/P endometrial ablation Family History Family History Father Diabetes mellitus Liver transplant recipient Mother Diabetes mellitus Grandparent Diabetes mellitus Breast cancer Social History Social History Smoking status: Never smoker Alcohol intake: current Alcohol use details: RARE Substance use: never Substance use type: does not use Living arrangements: with family Additional living arrangements comments: CHILDREN Gender identity (if verbalized by the patient): Female Spiritual care concerns: No Anes - Eval Final PreProcedure Day of Procedure 07/21/22 06:23 Patient weight: morbidly obese Heart: regular rate and rhythm Lungs: clear to auscultation Airway: Mallampati scale class II Neurological: alert and oriented Last oral intake: >/= 8 hours ASA classification: III Emergent: no Anesthetic plan: proceed Anesthesia type and monitoring: general ETT and standard monitoring Results Review: All pre-operative results and documents have been reviewed as part of the pre- operative evaluation. Informed Consent: The patient's anesthetic plan and its attendant risks and benefits were discussed with the patient/family/POA. Questions were solicited and answers provided to the satisfaction of the patient/family/POA.
[2022-07-21] MEDS: KETOROLAC 15 MG/ML VIAL (*BKC) IV PUSH (07:00)
[2022-07-21] MEDS: LACTATED RINGERS 1,000 ML 30 ML IV CONT ×2 (07:00→09:37)
[2022-07-21] MEDS: ACETAMINOPHEN 500 MG TABLET 1000 MG PO (07:00)
--- NOTE | 2022-07-21 07:19 | WPDHPUPDATE1 ---
History and Physical Update Update Date/Time: 07/21/22 07:19 History and Physical has been reviewed, including an updated exam of the patient. There are NO changes in the patient's condition. Risks, benefits, and alternatives have been discussed and questions answered. Patient agrees to proceed with procedure.
[2022-07-21] MEDS: ceFAZolin 2 GM/D5W 50 ML 2 GM/50 ML BAG IVPB (07:26)
[2022-07-21] MEDS: BUPivacaine HCL 0.25% PF 10 ML VIAL 20 ML INFILTRATE (08:30)
--- NOTE | 2022-07-21 09:18 | W.PM.PROC2 ---
Procedure Note - Detailed Date of Procedure 07/22/22 Pre-op Diagnosis Menorrhagia, Dysmenorrhea Post-op Diagnosis Same Procedure Performed 1. Robotic assisted laparoscopic total vaginal hysterectomy with bilateral salpingectomy 2. Lysis of adhesions Surgeon Gilbert Brothers MD Anesthesia General Indications Menorrhagia resistant to medications and endometrial ablation. Findings uterus boggy, approximately 10 week size, normal ovaries, both tubes with evidence of prior tubal ligation, left paratubal cyst, adhesion omental tissue to lower abdomen, small infraumbilical hernia of omental tissue Description of Procedure After informed consent was obtained she was taken to the operating room and general endotracheal anesthesia was administered. She was placed in low lithotomy position. An exam under anesthesia was performed. No adnexal masses palpated. She was prepped and draped in sterile fashion. Ferrari catheter placed in bladder. Attention was turned to the vagina speculum was inserted. Single-tooth tenaculum placed on anterior lip of the cervix the uterus sounded to 7.5 cm. The cervix was dilated to a 8 Moody dilator. A size 6 uterine manipulator was inserted and secured. A size 3.0 colp cup was secured in the vagina. Then attention was turned to the abdomen with new sterile gloves. .25% marcaine injected subcutaneously. An incision was made horizontal 2 cm above the umbilicus. A verres needle was inserted into abdomen. Confirmation obtained with free flow of fluid and normal pressures. A Pneumoperitoneum of 15 mm per mercury was obtained. A adhesion band of omentum was attached to umbilicus. A small incision was made approximately 6 cm lateral to the port on the left side of the port. A size 8mm robotic port was inserted under laparoscopic visualization into the abdomen on the left side. Attenition was turned to the right side and incisions and ports placed for the robotic port and ice cream freezer assistant port after Marcaine injected subcutaneously. Robotic arms attached. Attention was turned to surgical console and the adhesion band was lysed. The right round ligament was ligated with vessel sealer. The anterior leaf of broad ligament was dissected anteriorly. The right side of the bladder was dissected from the lower uterine segment and upper cervix. The right fallopian tube was ligated from broad ligament. The right ovarian ligament was ligated with the vessel sealer. The a posterior leaf of the broad ligament was further dissected. The ascending uterine vessels on the right were cauterized. The uterine vessels were ligated. Attention was turned to the left round ligament which was ligated and the anterior leaf of the broad ligament was dissected anteriorly. The rest of the vesicouterine peritoneum was dissected off of the uterus. Once the bladder was dissected below the colp cup then the fallopian tube was ligated from the broad ligament. The ovarian ligament was ligated. The ascending uterine vessels were ligated with the vessel sealer. The ascending uterine vessels were cauterized. The uterine arteries were ligated. The cardinal ligaments were ligated. This was done on both sides. An anterior colpotomy incision was made and this was carried around until the cervix was removed from the vagina. The uterus and cervix and fallopian tubes were removed through the vagina. The vaginal cuff was closed in a running fashion with 0 V lock suture. Hemostasis was noted. The pelvis was irrigated. Hemostasis noted. Hemoderm was applied in the pelvis. The patient was taken out of Trendelenburg position. The pneumoperitoneum was released and the ports were removed. The skin incisions were closed with 4 O Vicryl and skin glue. The patient was extubated in operating room. The sponge count was correct x3. Patient tolerated procedure well and was taken to recovery in stable condition. Estimated Blood Loss 20 IV Fluids 1,000 Urine Output 200 Drains No P
[2022-07-21] MEDS: KETOROLAC 30 MG/ML VIAL (*BKC) IV PUSH (16:06)
[2022-07-22] VITALS: BP 113/71; PULSE 79; RESP 17; TEMP 37.3; O2SAT 99
[2022-07-22 04:33] VITALS: BP 115/70; PULSE 79; RESP 14; TEMP 37; O2SAT 100
--- NOTE | 2022-07-22 07:32 | WPDANESPN ---
Anes - Prog Note Post-Op Date/Time: 07/22/22 07:32 Cardiovascular status: normal Respiratory status: normal Airway patency: baseline Mental status: baseline Post-Op hydration status: normal Vital Signs: Last Vital Signs Temp 37.0 C 07/22/22 04:33 Pulse 79 07/22/22 04:33 Resp 14 07/22/22 04:33 BP 115/70 07/22/22 04:33 Pulse Ox 100 07/22/22 04:33 O2 Del Method Room Air 07/21/22 20:05 O2 Flow Rate 8 07/21/22 10:10 Pain Score (VAS): 210 I/O: Intake & Output 07/21/22 07/21/22 07/22/22 15:59 23:59 07:59 Intake Total 2825 750 Output Total 400 250 Balance 2425 500 Post-procedural complaints: none Patient Feedback: Patient satisfied with anesthetic care.
[2022-07-22 07:45] VITALS: BP 138/99; PULSE 78; RESP 18; TEMP 37; O2SAT 100
[2022-07-22 08:00] VITALS: PULSE 78; RESP 18; O2SAT 100
[2022-07-22 08:10] VITALS: TEMP 37
--- NOTE | 2022-07-22 09:47 | PM.GYNPNOP ---
PATIENT ACCESS ASSOCIATE - A/P Assessment and plan (1) Status post hysterectomy: Code(s): Z90.710 - Acquired absence of both cervix and uterus Status: Acute Assessment and Plan: she is doing well. Discharge home today. Discharge precautions discussed. Postoperative Procedures: Procedures Operation Date: 07/21/22 07:30 Actual Procedure Side Surgeon p Robotic Total Hysterectomy with Bilateral Salpingectomy Bilateral Gilbert Brothers MD Time Spent With Patient Time: Total time spent is greater than 50% in coordination of care (as documented) at patient's floor/unit and/or counseling patient: Time with patient: less than 15 minutes PATIENT ACCESS ASSOCIATE- PN:Subj Post-Op Subjective Date/time seen: 07/22/22 09:47 Interval history: She has set up in a chair. she has ambulated in the room without problem She reports positive flatus. She has had a good pain control with the IV pain medicines. Has urinated without problems. tolerating regular diet. Subjective: pain is well controlled and patient is tolerating oral intake Review of Systems Review of Systems: All systems reviewed & are unremarkable except as noted in HPI and below Cardiovascular: Cardiovascular: Reports no additional cardiovascular complaints Respiratory: Respiratory: Reports no additional respiratory complaints Gastrointestinal: Gastrointestinal: Reports belching, Denies nausea and Denies vomiting Genitourinary: Genitourinary: Reports no additional female genitourinary complaints Musculoskeletal: Musculoskeletal: Reports no additional musculoskeletal complaints Exam Const: General: comfortable and no acute distress Orientation/consciousness: oriented to person, oriented to place and oriented to time Resp: Auscultation: clear to auscultation bilaterally Cardio: Rate: regular rate Rhythm: regular rhythm GI: GI Palp: Yes Soft to palpation and No Tenderness to palpation present (GI) Auscultation: normal bowel sounds : Other: Soft nontender incisions clean dry intact Neuro: General: oriented to person, oriented to place and oriented to time Extrem: General: no calf tenderness Psych: Mental Status: mental status grossly normal PATIENT ACCESS ASSOCIATE - PN: Obj Data Vital Signs Vital Signs: Vital Signs - 24 hr 07/21/22 09:55 07/21/22 10:10 07/21/22 10:25 Temperature Pulse Rate 56 L 54 L 62 Respiratory Rate 15 13 16 Blood Pressure 111/63 128/74 117/78 Pulse Oximetry 100 100 100 Oxygen Delivery Simple Face Mask Simple Face Mask Room Air Oxygen Flow Rate 8 8 07/21/22 11:00 07/21/22 14:45 07/21/22 14:45 Temperature 97 F L 97.9 F Pulse Rate 57 L 86 57 L Respiratory Rate 16 20 16 Blood Pressure 151/91 H 128/86 Pulse Oximetry 100 100 100 Oxygen Delivery Room Air Oxygen Flow Rate 07/21/22 11:00 07/21/22 17:20 07/21/22 17:20 Temperature 98.4 F Pulse Rate 57 L 71 71 Respiratory Rate 16 20 20 Blood Pressure 124/80 Pulse Oximetry 100 100 100 Oxygen Delivery Room Air Room Air Oxygen Flow Rate 07/21/22 20:05 07/21/22 20:05 07/21/22 23:42 Temperature 98.8 F 99.2 F Pulse Rate 73 73 Respiratory Rate 16 16 Blood Pressure 142/98 H Pulse Oximetry 99 99 Oxygen Delivery Room Air Oxygen Flow Rate 07/21/22 23:45 07/22/22 00:00 07/22/22 04:33 Temperature 99.2 F 99.2 F 98.6 F Pulse Rate 97 79 79 Respiratory Rate 15 17 14 Blood Pressure 113/71 113/71 115/70 Pulse Oximetry 99 99 100 Oxygen Delivery Oxygen Flow Rate 07/22/22 08:10 07/22/22 07:45 Temperature 98.6 F 98.6 F Pulse Rate 78 Respiratory Rate 18 Blood Pressure 138/99 H Pulse Oximetry 100 Oxygen Delivery Oxygen Flow Rate Intake/Output Intake/Output: Intake & Output 07/19/22 07/20/22 07/21/22 07/22/22 23:59 23:59 23:59 23:59 Intake Total 3675 Output Total 650 Balance 3025 Meds/Results Medications: Active Medications Generic Name Dose Route Start Last Admin Trade Name Freq PRN Reason Stop Dose Admi
== END 2022-07-22 10:20 | disposition home or self-care (01) ==
LOC: ANHSURGERY 05:54 → ANHOB2 07-22 08:17
PROVIDERS: PCP Family Medicine; Visit Provider Obstetrics & Gynecology
PROC: (CPT 58571; principal; 2022-07-21 07:30)
DX: N92.0 Excessive and frequent menstruation with regular cycle (principal); D25.1 Intramural leiomyoma of uterus; N94.6 Dysmenorrhea, unspecified; N73.6 Female pelvic peritoneal adhesions (postinfective); N83.8 Other noninflammatory disorders of ovary, fallopian tube and broad ligament; K42.9 Umbilical hernia without obstruction or gangrene; D64.9 Anemia, unspecified; E66.01 Morbid (severe) obesity due to excess calories; Z68.41 Body mass index [BMI] 40.0-44.9, adult
CPT/HCPCS: 58571; S2900; 88307; A9270; J0131; J0690; J1100; J1170; J1885; J2250; J2405; J2704; J2710; J3010; J7030; J7120

== ENCOUNTER 2023-08-09 12:54 | Emergency (ER) | payer OTHER, SELFPAY ==
[2023-08-09] VITALS (9 sets, daily range): BP systolic 140–176; BP diastolic 86–106; PULSE 70–86; RESP 14–18; TEMP 36.6; O2SAT 100
--- NOTE | ~2023-08-09 | CT_ITS ---
EXAMINATION: CT brain wo con DATE: 08/09/2023 13:37 INDICATION: Migraine headaches TECHNIQUE: Computed tomography (CT) of the head was performed without intravenous contrast. Sagittal and coronal reconstructions were performed. The mA was adjusted according to patient size. Iterative reconstruction technique was employed. The dose-length product was 529.67 mGy-cm. COMPARISON: None FINDINGS: No acute intracranial hemorrhage, acute infarction or abnormal extra axial fluid collection. Ventricl es are normal and symmetric. No mass/mass effect. The orbits, paranasal sinuses and mastoid air cells are normal. IMPRESSION: 1. Normal head CT. Reviewed, dictated and finalized at location B. IMPRESSION: 1. Normal head CT.
--- NOTE | 2023-08-09 14:20 | ED.GENADULT ---
HPI - General Adult General Chief complaint: Headache Stated complaint: migraine Time Seen by Provider: 08/09/23 13:06 patient 38-year-old female presents emergency department chief complaint of headache. Patient reports he has prior history of migraines reports that she has occasionally had come to the emergency department for treatment patient reports that over the last several days she has had a headache that she describes is hurting in her brain patient states that light and noise makes the pain worse the patient does report there is discomfort in her right ear patient reports that she has had nausea without vomiting the patient reports no fever denies nuchal rigidity the patient states that she has not had imaging in several years and reports that she is concerned that something may have changed COVID like to have imaging Related Data Home Medications Medication Instructions Recorded Confirmed multivitamin 1 tablet PO DAILY 07/13/22 09/29/22 Allergies Allergy/AdvReac Type Severity Reaction Status Date / Time No Known Allergies Allergy Verified 04/27/23 10:32 Review of Systems Review of Systems: A 10 system review of systems was completed on the patient and is negative except for what is stated in the HPI. Nursing and ancillary documentation was reviewed. [facility] Past Medical History Medical History Acne Anemia Hx of migraines Morbid obesity Surgical History Surgical History History of hysteroscopy History of tubal ligation S/P endometrial ablation S/P vaginal hysterectomy Family History Family History Father Diabetes mellitus Liver transplant recipient Mother Diabetes mellitus Grandparent Diabetes mellitus Breast cancer Social History Social History Smoking status: Never smoker Alcohol intake: current Alcohol use details: RARE Substance use: never Substance use type: does not use Lack of Transportation: No Lack of Food: Never True Current Housing: I Have Housing Concerned About Future Housing: No Difficulty Paying Gas/Electric Bills: No Difficulty Paying for Meds: No Currently Unemployed: No Education: Don't Know Difficulty w/ Childcare or Family Care: No Living arrangements: with family Additional living arrangements comments: CHILDREN Gender identity (if verbalized by the patient): Female Sexual Orientation (if Verbalized by the Patient): Straight or Heterosexual Spiritual care concerns: No Exam Narrative: GENERAL: Well-appearing, well-nourished, and in no acute distress. HEAD: Normocephalic, atraumatic. EYES: PERRLA and EOMI. ENT: Nares clear, no rhinorrhea or epistaxis. Mucous membranes moist. NECK: Supple. CHEST: Clear to auscultation. No respiratory distress. HEART: Regular rate and rhythm. No murmur heard. Normal peripheral pulses. ABDOMEN: Soft, nontender, nondistended, normal active bowel sounds. EXTREMITIES: Normal range of motion. No edema. SKIN: Warm, dry, no rash. NEURO: No focal deficits. Alert and oriented x3. PSYCH: Normal mood and affect. Course Vital Signs Vital signs: Vital Signs Temperature 36.6 C 08/09/23 13:24 Pulse Rate 70 08/09/23 13:24 Respiratory Rate 18 08/09/23 13:24 Blood Pressure 140/106 H 08/09/23 13:24 Pulse Oximetry 100 08/09/23 13:24 Oxygen Delivery Room Air 08/09/23 13:24 Temperature 36.6 C 08/09/23 13:24 Pulse Rate 86 08/09/23 16:33 Respiratory Rate 14 08/09/23 16:33 Blood Pressure 176/95 H 08/09/23 16:18 Pulse Oximetry 100 08/09/23 16:33 Oxygen Delivery Room Air 08/09/23 13:24 Medical Decision Making MDM Narrative Medical decision making narrative: differential diagnosis includes migraine he
[2023-08-09 14:43] LABS: Basophils Percent Auto 0.4 % (0.2-1.2); Eosinophils Absolute Auto 0.1 K/mm3 (0-0.3); Eosinophils Percent Auto 1.5 % (0-4.4); Hematocrit 40.5 % (37.0-47.0); Hemoglobin 13.1 g/dL (12.0-15.0); Immature Granulocyte Absolute 0.05 K/mm3 (0.00-0.031); Immature Granulocyte Percent A 0.7 % (0-0.5); Lymphocytes Percent Auto 30.7 % (18.3-44.2); Mean Corpuscular HGB Conc 32.3 g/dl (32-36); Mean Corpuscular Volume 86.5 fl (80-100); Mean Platelet Volume 10.6 fl (7.4-10.4); Monocytes Absolute Auto 0.4 K/mm3 (0.1-0.6); Monocytes Percent Auto 6.1 % (2.6-8.5); Neutrophils Absolute Auto 4.1 K/mm3 (1.3-6.7); Neutrophils Percent Auto 60.6 % (45.5-73.1); Platelet Count Result 245 k/mm3 (150-375); Red Blood Count 4.68 M/mm3 (4.2-5.4); White Blood Count 6.8 K/mm3 (4.5-10.0)
[2023-08-09 14:53] LABS: Alanine Aminotransferase 17 U/L (6-35); Albumin Level 4.1 g/dL (3.5-5.1); Alkaline Phosphatase 66 U/L (38-126); Anion Gap 7 mmol/L (4-12); Aspartate Amino Transferase 27 U/L (14-36); Bilirubin,Total 0.5 mg/dL (0.2-1.3); Blood Urea Nitrogen 35 mg/dL (7-17); Calcium 8.7 mg/dL (8.4-10.2); Carbon Dioxide 23 mmol/L (22-30); Chloride 109 mmol/L (98-107); Estimated CRCL calculation 40 ml/min; Estimated Glomerular Filt Rate 32; Glucose 96 mg/dL (65-110); Potassium 4.1 mmol/L (3.4-5.0); Sodium 139 mmol/L (137-145)
[2023-08-09] MEDS: SODIUM CHLORIDE 0.9% IV 1,000 ML 999 ML IV CONT (15:14)
[2023-08-09] MEDS: KETOROLAC 30 MG/ML VIAL (*BKC) IV PUSH (15:14)
[2023-08-09] MEDS: diphenhydrAMINE HCl INJ 50 MG/ML VIAL IV PUSH (15:14)
[2023-08-09] MEDS: PROCHLORPERAZINE EDISYLATE 10 MG/2 ML VIAL IV PUSH (15:23)
== END 2023-08-09 17:39 | disposition home or self-care (01) ==
PROVIDERS: Emergency Provider Emergency Medicine; PCP Family Medicine
DX: G43.909 Migraine, unspecified, not intractable, without status migrainosus (principal)
CPT/HCPCS: 36415; 70450; 80053; 85025; 96361; 96374; 96375; 99284; J0780; J1200; J1885; J7030

== ENCOUNTER 2024-04-23 05:41 | Emergency (ER) | payer OTHER, MEDICAID, SELFPAY ==
--- NOTE | ~2024-04-23 | CT_ITS ---
Non-contrast CT scan of the Abdomen and Pelvis Clinical indication: Flank pain Technique: 2.5 mm axial scans were obtained through the abdomen and pelvis without intravenous or or al contrast. Dose reduction technique was used on this scan by utilizing automated exposure control a nd iterative reconstruction technique. The dose-length product (DLP) was 1099.94 mGy-cm. Findings: Images through the lung bases reveal no abnormalities. There is no evidence of renal or ureteral calculi. The kidneys and the ureters are nondilated. The liver, spleen, pancreas, gallbladder, and adrenals appear normal. There is no aortic aneurysm. There is no evidence of bowel obstruction. Images through the pelvis were performed. There is no evidence of ascites or lymphadenopathy. Urinary bladder unremarkable. No pelvic mass seen. No ascites. Impression: No significant abnormality seen. Reviewed, dictated and finalized at [facility]. TS TEACHER Impression: No significant abnormality seen.
--- OUTSIDE RECORDS SUMMARY | 2024-04-23 05:43 | XMS_ITS | Clinical Summary ---
Author Organization [facility] Facility Address [address] [address] Care Team Providers Care Founder Name Role Phone Celia BanuelosP-C Primary Care Provider [phone] Encounters Date Type Department Care Team Description 03/15/2024 Documentation Only [facility] [address] [address] ProviderSanjay MD from Last 3 Months Social History Tobacco Use Types Packs/Day Years Used Date Smoking Tobacco: Never Assessed Comments Unknown Sex and Gender Information Value Date Recorded Sex Assigned at Not on file Legal Sex Female 1:15 PM EST Gender Identity Not on file Sexual Orientation Not on file Plan of Treatment Upcoming Encounters Date Type Department Care Team (Late st Contact Info) Description 06/12/2024 11:15 AM CDT Office Visit [facility], [facility] [address] [phone] Jacinto Krishnamurthy MD [address] [place] [phone] Health Maintenance Due Date Last Done Comments Pneumococcal Vaccine: Pediat rics (0 to 5 Years) and At-Risk Patients (6 to 64 Years) (1 of 2 - PCV) 1992 Hepatitis B Vaccine (2 of 3 - 3-dose series) 06/27/1998 05/30/1998 Influenza Vaccine (#1) 2023 12/07/2022, 2017 Care Teams Founder Relationship Specialty Start Date End Date Celia Banuelos FNP-C [address] [place] [address] PCP - General Family Medicine 03/15/24
--- OUTSIDE RECORDS SUMMARY | 2024-04-23 05:43 | XMS_ITS | Referral Summary ---
Author Organization [facility] Address [address] [place] [address] Care Team Providers Care Rayon Tester Name Role Phone Rosi Irizarry MD Primary Care Provider + Allergies No known active allergies Social History Tobacco Use Types Packs/Day Years Used Date Smoking Tobacco: Never Assessed Personal Safety Answer Date Recorded Getting School Help Needed Not on file 05/28 Comments Unknown Sex and Gender Information Value Date Recorded Sex Assigned at Not on file Legal Sex Female 9:09 PM CDT Gender Identity Not on file Sexual Orientation Not on file Last Filed Vital Signs Vital Sign Reading Time Taken Comments Blood Pressure 133/90 09/03/2021 11:37 AM CDT Pulse 87 09/03/2021 11:37 AM CDT Temperature 37.2 ??C (99 ??F) 09/03/2021 11:37 AM CDT Respiratory Rate 20 09/03/2021 11:37 AM CDT Oxygen Saturation 100% 09/03/2021 11:37 AM CDT Inhaled Oxygen Concentration - - Weight 104.3 kg (230 lb) 09/02/2021 9:11 PM CDT Height 162.6 cm (5' 4 ) 09/02/2021 9:11 PM CDT Body Mass Index 39.48 09/02/2021 9:11 PM CDT Plan of Treatment Not on file Insurance [facility] Care Teams Rayon Tester Relationship Specialty Start Date End Date Rosi Irizarry MD [address] [place] [address] [address] PCP - General Family Medicine 09/02/21
--- OUTSIDE RECORDS SUMMARY | 2024-04-23 05:43 | XMS_ITS | Data Portability ---
Author Organization [place] - [facility] [employer], Main Office Address [address] [place] [address] Assessment No assessment recorded. Plan of Treatment Reminders Order Date Submit Date Provider Last Modified By Organization Details Last Modified Time Details Appointments Follow Up 2024 01:30P Eleni Banuelos NP Not available Not available Not available Lab hepatic function panel, serum 2022 023 WALDO Not available 12/07/2022 20:20:13 BMP, serum or plasma 2022 023 WALDO Not available 12/07/2022 20:20:23 vitamin D, 25-hydrox y, total, serum 2023 024 [email or web address] (Lab), [address] [place], [address], 11/25/2023 10:41:40 TSH, serum or plasma 2023 024 [email or web address] (Lab), [address] [place], [address], 11/25/2023 10:42:12 CBC 2023 024 [email or web address] [facility] (Lab), [address] [place], [address], 11/25/2023 10:41:50 vitamin B12 + folate, serum or blood 2023 024 [email or web address] (Lab), [address] [place], [address], 11/25/2023 10:42:02 CBC w/ auto diff [address] (Lab), [address] [place], [address], 03/14/2024 11:26:12 CMP, serum or plasma [address] (Lab), [address] [place], [address], 03/14/2024 11:26:44 Referral None recorded. Procedures None recorded. Surgeries None recorded. Imaging None recorded. Medication Orders topiramat e 25 mg tablet [address] [facility], [address] [place], [place], [id number], 03/14/2024 11:00:00 amoxicill in 875 mg tablet [address] [facility]66130, [address] [place], [place], [id number], 06/13/2023 10:07:59 terbinafi ne HCl 250 mg tablet [address] [facility]79537, [address] [place], [place], [id number], 06/13/2023 10:09:01 minocycli ne 100 mg tablet 2023 024 W[facility] #31533, [address] [place], [place], [id number], 06/13/2023 10:12:06 topiramat e 25 mg tablet [address] [facility]99603, [address] [place], [place], [id number], 03/14/2024 11:00:00 Vitamin D3 50 mcg (2,000 unit) capsule 2023 [facility]94151, [address] [place], [place], [id number], 11/25/2023 10:31:13 minocycli ne 100 mg tablet [address] [facility] #89631, [address] [place], [place], [id number], 11/25/2023 10:31:16 ferrous sulfate 325 mg (65 mg iron) tablet [address] [facility] #00809, [address] [place], [place], [id number], 11/25/2023 10:31:15 lisinopri l 10 mg tablet [address] [facility] #93234, [address] [place], [place], [id number], 03/14/2024 11:14:31 buspirone 5 mg tablet [address] [facility] #95446, [address] [place], [place], [id number], 03/14/2024 11:14:31 Patient TargetsNo targets recorded. Patient InstructionsNo instructions recorded. Reason for Referral None Reported. Results Created Date Observation Date Name Description Value Unit Range Abnormal Flag Note LastModifiedBy Organization Detail LastModifiedTime 12/08/1912/07/2022 HEPAT IC/LI YELENA PANEL alkaline phosphatase 71 U/L 38-126 Not Available [facility] (Lab) [address] [place], [address], 12/07/2022 20:20:13 12/08/19 23 12/07/2022 HEPAT IC/LI YELENA PANEL alanine aminotransfe rase 30 U/L 0-35 Not Available [facility] (Lab) [address] [place], [address], 12/07/2022 20:20:13 12/08/19 23 12/07/2022 HEPAT IC/LI YELENA PANEL aspartate aminotransfe rase 31 U/L 15-37 Not Available [facility] (Lab) [address] [place], [address], 12/07/2022 20:20:13 12/08/19 23 12/07/2022 HEPAT IC/LI YELENA PANEL bilirubin, total 0.20 mg/dL 0.20-1 .30 Not Available [facility] (Lab) [address] [place], [address], 12/07/2022 20:20:13 12/08/19 23 12/07/2022 HEPAT IC/LI YELENA PANEL bilirubin, conjugated (direct) 0.00 mg/dL 0.00-0 .30 Not Available [facility] (Lab) [address] [place], [address], 12/07/2022 20:20:13 12/08/19 23 12/07/2022 HEPAT IC/LI YELENA PANEL biliurubin,u ncong. (indirect) 0.10 mg/dL 0.00-1 .1 Not Available [facility] (Lab) [address] [place], [address], 12/07/2022 20:20:13 12/08/19 23 12/07/2022 HEPAT IC/LI YELENA PANEL total protein 7.4 g/dL 6.3-8. 2 Not Available [facility] (Lab) [address] [place], [address], 12/07/2022 20:20:13 12/08/19 23 12/07/2022 HEPAT IC/LI YELENA PANEL albumin 4.0 g/dL 3.4-5. 0 Not Available [facility] (Lab) [address] [place], [address], 12/07/2022 20:20:13 12/08/19 23 12/07/2022 HEPAT IC/LI YELENA PANEL globulin 3.4 g/dL 2.6-4. 2 Not Available [facility] (Lab) [address] [place], [address], 12/07/2022 20:20:13 12/08/19 23 12/07/2022 HEPAT IC/LI YELENA PANEL A/G ratio 1.2 ratio 1.0-2. 0 Not Available [facility] (Lab) [address] [place], [address], 12/07/2022 20:20:13 12/08/19 23 12/07/2022 BASIC METAB OLIC PANEL sodium 140 mmol/ L 137-14 5 Not Available [facility] (Lab) [address] [place], [address], 12/07/2022 20:20:23 12/08/19 23 12/07/2022 BASIC METAB OLIC PANEL potassium 4.1 mmol/ L 3.5-5. 1 Not Available [facility] (Lab) [address] [place], [address], 12/07/2022 20:20:23 12/08/19 23 12/07/2022 BASIC METAB OLIC PANEL chloride 107 mmol/ L 98-107 Not Available [facility] (Lab) [address] [place], [address], 12/07/2022 20:20:23 12/08/19 23 12/07/2022 BASIC METAB OLIC PANEL carbon dioxide 24 mmol/ L 22-30 Not Available [facility] (Lab) [address] [place], [address], 12/07/2022 20:20:23 12/08/19 23 12/07/2022 BASIC METAB OLIC PANEL anion gap 13.1 mmol/ L 14-22 low Not Available [facility] (Lab) [address] [place], [address], 12/07/2022 20:20:23 12/08/1912/07/2022 BASIC METAB OLIC PANEL glucose 85 mg/dL 70-99 Not Available [facility] (Lab) [address] [place], [address], 12/07/2022 20:20:23 12/08/1912/07/2022 BASIC METAB OLIC PANEL BUN 19 mg/dL 8-19 Not Available [facility] (Lab) [address] [place], [address], 12/07/2022 20:20:23 12/08/1912/07/2022 BASIC METAB OLIC PANEL creatinine 1.68 mg/dL 0.66-1 .25 high Not Available [facility] (Lab) [address] [place], [address], 12/07/2022 20:20:23 12/08/1912/07/2022 BASIC METAB OLIC PANEL GFR 34 Refer ence Range : [place] ge GFR Healt hy Adult : >60 mL/mi n/1.7 3 m2 Chron ic Kidne y Disea se: 15-60 mL/mi n/1.7 3 m2 Kidne y Failu re: <15/m L/min /1.73 m2 www.n iddk. nih.g ov The MDRD study equat ion has not been valid ated in child mariposa <18 years of age; pregn ant women ; the elder ly >85 years of age; or in some racia l or ethni c subgr oups, such as Hispa nics. Outsi de the valid ated christi eters , estim ated GFR is less accur ate, requi ring clini phillip judgm ent on a case- by-ca se basis . Clini phillip inter preta tion for other races and ages must be made by the clini federica. The MDRD study equat ion has not been valid ated for the evalu ation of serum creat inine relat ed to nutri leidy l statu s or medic ation usage . For perso ns <18 years of age, a pedia tric GFR calcu lator is avail able on the [facility] websi te: https ://taylor w.kid desiree.o rg/pr ofess ional s/kdo qi/gf r_cal culat or Not Available [facility] (Lab) [address] [place], [address], 12/07/2022 20:20:23 12/08/19 23 12/07/2022 BASIC METAB OLIC PANEL calcium 9.0 mg/dL 8.4-10 .2 Not Available [facility] (Lab) [address] [place], [address], 12/07/2022 20:20:23 08/09/19 24 08/09/2023 CT, brain , w/o contr ast No observ ation record ed. [address], [place], [address], 08/13/2023 19:28:05 Result Notes None recorded. Problems Name Problem SNOMED Code Status Onset Date Resolution Date Notes Provider Name and Address Organization Details Recorded Time Acute sinusitis 90123376 Active Not Available [facility] 3 02:39:45 Acute situational disturbance 452945150 Active Aspen Mabry APRN [address], [employer], [place], [address] , [employer] 4 16:40:05 Steatosis of liver 394105796 Active Aspen Mabry APRN [address], [employer], [place], [address] , [employer] 4 16:40:40 Vitamin D deficiency 13041146 Active 2017 Aspen Mabry APRN [address], [employer], [place], [address] , [employer] 4 16:40:28 Obesity 513230202 Active Aspen Mabry APRN [address], [address], [place], [address] , [place] [facility] 4 16:40:23 Onychomycosis 977825005 Active Not Available [facility] 3 02:39:45 Hyperlipidemi a 43312038 Active Aspen Mabry APRN [address], [address], [place], [address] , [place] [facility] 4 16:40:07 Prediabetes 078876121 Active 2021 Aspen Mabry APRN [address], [address], [place], [address] , [place] [facility] 4 16:40:25 Hyperglycemia 96689994 Active Not Available [facility] 3 02:39:45 Iron deficiency anemia 91660584 Active 2016 Aspen Mabry APRN [address], [address], [place], [address] , [place] [facility] 4 16:40:17 Serum creatinine above reference range 813767235 Active 2022 Rosi Irizarry MD [address], [place], [address] , [place] [facility] 3 08:03:13 Onychomycosis of toenails 855209043 Active 2022 Rosi Irizarry MD [address], [address], [place], [address] , [place] [facility] 3 14:07:09 Increased liver function 34564397 Active 2022 Rosi Irizarry MD [address], [address], [place], [address] , [place] [facility] 3 14:07:15 Migraine 25559924 Active 2022 Aspen Mabry APRN [address], [address], [place], [address] , [facility] [employer] 4 16:40:20 Elevated blood-pressur e reading without diagnosis of hypertension 707685457 Active 2022 Rosi Irizarry MD [address], [address], [place], [address] , [facility] [employer] 3 14:16:17 Acne 81622878 Active 2023 Rosi Irizarry MD [address], [address], [place], [address] , [employer] [facility] [employer] 4 10:11:34 Fatigue 92059299 Active 2023 PETER Godwin [address], [address], [place], [address] , [facility] [email or web address] [facility] [employer] 4 10:30:47 Anxiety 70704339 Active 2023 PETER Juarez [address], [address], [place], [address] , [employer] [facility] [employer] 4 11:12:23 Creatine kinase level above reference range 835757356 Active 2023 PTEER Juarez [address], [address], [place], [address] , [employer] [facility] [employer] 4 15:01:33 Essential hypertension 65422319 Active 2024 PETER Juarez [address], [place], [address] , [facility] [email or web address] [facility] [employer] 5 17:03:33 Problem Notes None recorded. Procedures Surgical History Date Name Laterality Status Provider Name and Address Organization Details Recorded Time Hysterectomy completed Jeana Jaquez LPN [place] [facility] [employer] 07/22/2022 09:07:36 Imaging Results Imaging Date Name Status LastModified by [facility] Details LastModified Time 08/09/2023 CT, brain, w/o contrast completed [address], [place], [address], 08/13/2023 19:28:05 Procedure Notes None recorded. Medical Equipment None Reported. Allergies No known drug allergies Medications Name Sig Start Date Stop Date Status Note LastModified by Organization Details LastModified Time cyclobenzap rine 10 mg tablet 10/27 completed Not Available Not Available Not Available buspirone 5 mg tablet Take 1 tablet twice a day by oral route. 2023 active Not Available Not Available Not Avai lable Augmentin 875 mg-125 mg tablet Take 1 tablet every 12 hours by oral route for 7 days. 08/14 completed Not Available Not Available Not Available Penlac 8 % topical solution APPLY TO THE right toenail topically ONCE DAILY PREFERABL Y AT BEDTIME OR 8 HOURS BEFORE WASHING 06/26 completed Not Available Not Available Not Available sumatriptan 100 mg tablet 1/2 to 1 tab at onset of headache. Do not exceed 1 tab in 24 hours active Not Available Not Available No t Available hydrocodone 5 mg-acetamin ophen 325 mg tablet 10/27 completed Not Available Not Available Not Available prednisone 20 mg tablet 2 po qday x 5 days active Not Available Not Available No t Available Nifedical XL 30 mg tablet,exte nded release TK 1 T PO D 08/07 completed Not Available Not Available Not Available phentermine 15 mg capsule Take 1 capsule every day by oral route. 06/29 completed Not Available Not Available Not Available topiramate 25 mg tablet 1 po qhs x 7 days then 1 po bid x 7 days then 1 po qAM and 2 po qhs x 7 days then 2 po bid 03/14 completed Not Available Not Available Not Available phentermine 37.5 mg tablet 1 tab po qday 03/06 completed Not Available Not Available Not Available sulfamethox azole 800 mg-trimetho prim 160 mg tablet Take 1 tablet every 12 hours by oral route for 14 days. active Not Available Not Available No t Available terbinafine HCl 250 mg tablet Take 1 tablet(s) every day by oral route. 06/12 completed Not Available Not Available Not Available doxycycline monohydrate 50 mg capsule Take 1 capsule every 12 hours by oral route. 12/21 completed Not Available Not Available Not Available amoxicillin 875 mg tablet Take 1 tablet every 12 hours by oral route for 7 days. 06/12 completed Not Available Not Available Not Available baclofen 10 mg tablet Take 1 tablet 3 times a day by oral route as needed. active Not Available Not Available No t Available cephalexin 500 mg capsule Take 1 capsule every 8 hours by oral route. active Not Available Not Available No t Available erythromyci n 5 mg/gram (0.5 %) eye ointment 12/21 completed Not Available Not Available Not Available lisinopril 10 mg tablet Take 1 tablet every day by oral route. 2023 active Not Available Not Available Not Avai lable diclofenac sodium 75 mg tablet,andrew yed release Take 1 tablet twice a day by oral route as needed. 06/26 completed Not Available Not Available Not Available hydrochloro thiazide 25 mg tablet Take 1 tablet every day by oral route. 2024 active Not Available Not Available Not Avai lable ergocalcife rol (vitamin D2) 1,250 mcg (50,000 unit) capsule TAKE 1 CAPSULE BY MOUTH EVERY WEEK 10/27 completed Not Available Not Available Not Available ibuprofen 600 mg tablet 03/14 completed Not Available Not Available Not Available ferrous sulfate 325 mg (65 mg iron) tablet,andrew yed release 1 po qday 06/26 completed Not Available Not Available Not Available ketoconazol e 2 % topical cream APPLY TO THE AFFECTED AREA(S) BY TOPICAL ROUTE ONCE DAILY for 3 months 05/31 completed Not Available Not Available Not Available medroxyprog esterone 150 mg/mL intramuscul ar suspension Inject 1 mL every 3 months by intramusc ular route. 10/27 completed Not Available Not Available Not Available naproxen 500 mg tablet 10/27 completed Not Available Not Available Not Available metoclopram brett 10 mg tablet 06/26 completed Not Available Not Available Not Available cyclobenzap rine 5 mg tablet Take 1 tablet 3 times a day by oral route as needed. active Not Available Not Available No t Available minocycline 100 mg tablet 1 po bid active Not Available Not Available Not Available Premarin 1.25 mg tablet 10/27 completed Not Available Not Available Not Available Tri-Sprinte c (28) 0.18 mg(7)/0.215 mg(7)/0.25 mg(7)-35 mcg tablet active Not Available Not Available N ot Available erythromyci n with ethanol 2 % topical solution 07/21 completed Not Available Not Available Not Available FeroSul 325 mg (65 mg iron) tablet 1 po qday active Not Available Not Available No t Available Vitamin D3 50 mcg (2,000 unit) capsule Take 1 capsule every day by oral route for 90 days. 2023 active Not Available Not Available Not Avai lable Aurovela Fe 1-20 (28) 1 mg-20 mcg (21)/75 mg (7) tablet Take 1 tablet every day by oral route. 07/21 completed Not Available Not Available Not Available Vitals Date Recorded Body weight Body temperature Heart rate Oxygen saturation Oxygen saturation in Arterial blood by Pulse oximetry Systolic blood pressure Diastolic blood pressure Provider Name and Address Organization Details Last Updated DateTime 3 84062.5 4 g 98.3 [degF] 90 /min 99 % 99 % 190 mm[Hg] 118 mm[Hg] Kamran Fraire RN [facility] [employer] [facility] 3 14:01:54 Date Recorded Body weight Body temperature Heart rate Systolic blood pressure Diastolic blood pressure Provider Name and Address Organization Details Last Updated DateTime 06/13/2023 20132.3 6 g 97.6 [degF] 92 /min 146 mm[Hg] 78 mm[Hg] Kamran Fraire RN [facility] [employer] [facility] 4 09:58:09 Date Recorded Body weight Body mass index (BMI) Body height Body temperature Heart rate Oxygen saturation Oxygen saturation in Arterial blood by Pulse oximetry Systolic blood pressure Diastolic blood pressure Provider Name and Address Organization Details Last Updated DateTime 4 75838.3 2 g 39 kg/m2 160.02 cm 98.5 [degF] 61 /min 100 % 100 % 130 mm[Hg] 88 mm[Hg] Ritika Raya RN [facility] [employer] [facility] 4 10:19:55 Date Recorded Body height Body mass index (BMI) Body weight Body temperature Heart rate Oxygen saturation Oxygen saturation in Arterial blood by Pulse oximetry Systolic blood pressure Diastolic blood pressure Provider Name and Address Organization Details Last Updated DateTime 4 160.02 cm 40.2 kg/m2 528697. 47 g 97.6 [degF] 75 /min 98 % 98 % 148 mm[Hg] 102 mm[Hg] Ritika Raya RN [facility] [employer] 10:59:48 Date Recorded Body height Systolic blood pressure Diastolic blood pressure Provider Name and Address Organization Details Last Updated DateTime 03/26/2024 160.02 cm 140 mm[Hg] 96 mm[Hg] Christy Doan RN [facility] [employer] 03/26/2024 15:27:13 Social History Question Answer Notes LastModified by Organizat ion Details LastModified Time Tobacco Smoking Status Never Smoker Not Available [facility] 05/26/2022 02:33:30 Do You Have An Advance Directive? No [id number] Information not available 05/26/2022 What Is Your Level Of Alcohol Consumption? None [id number] Information not available 05/26/2022 What Is Your Level Of Caffeine Consumption? None [id number] Information not available 05/26/2022 Are There Any Guns Present In Your Home? No [id number] Information not available 05/26/2022 Do You Use Sunscreen Routinely? No [id number] Information not available 05/26/2022 Sex: Unknown Functional Status None recorded. Mental Status None recorded. Family History Relationship Description Onset Age of this Age Resolved Age Notes LastModified by Organization Details LastModified Time Mother Diabetes mellitus [id number] Not available 05/26/2022 02:34:25 Paternal Aunt Diabetes mellitus [id number] Not available 05/26/2022 02:34:25 Paternal Grandmother Family history of malignant neoplasm [id number] Not available 05/26/2022 02:34:25 Medical History No medical history recorded. Gynecological HistoryNo gynecological history recorded. Obstetrics History GPAL:G 0 P 0 0 0 0 Immunizations Vaccine Type Date Status Note Provider Nam e and Address Organization Details Recorded Time Tdap 06/23/2015 completed Not Available [facility] 05/26/2022 02:46:20 Influenza, split virus, quadrivalent, PF 12/21/2017 completed Not Available [facility] 03/2022 02:46:20 COVID-19, mRNA, LNP-S, PF, 30 mcg/0.3 mL dose 06/12/2020 completed Aspen Mabry APRN [address], [place], [address], [facility] [email or web address] [facility] [employer] [facility] 03/06/2024 16:36:39 COVID-19, mRNA, LNP-S, PF, 30 mcg/0.3 mL dose 07/06/2020 completed Aspen Mabry APRN [address], [address], [place], [address], [employer] [facility] 03/06/2024 16:36:39 Tdap 05/19/2017 completed Aspen Mabry APRN [address], [address], [place], [address], [facility] [email or web address] [facility] [employer] [facility] 03/06/2024 16:36:39 HPV, bivalent 05/30/2008 completed Aspen alcantar, [employer] [address], [place], [address], [employer] [facility] 03/06/2024 16:36:39 HPV, bivalent 07/12/2007 completed Aspen alcantar, [employer] [address], [place], [address], [employer] [facility] [employer] [facility] 03/06/2024 16:36:39 Hep B, adolescent or pediatric 05/30/1998 completed Aspen Mabry APRN [address], [place], [address], [facility] [email or web address] [facility] [employer] [facility] 03/06/2024 16:36:39 Influenza, split virus, quadrivalent, PF 12/07/2022 completed Kamran Fraire RN [facility], [employer] [facility] [employer] [facility] 12/07/2022 14:28:24 Past Encounters Encounter ID Performer Location Encounter Start Date Encounter Closed Date Diagnosis/Indication Diagnosis SNOMED-CT Code Diagnosis ICD10 Code Diagnosis Note [id number] [facility] [address] [place] [address] 06/26/2020 00:00:00 06/26/2020 17:17:05 [id number] [facility] Primary Care [address] [facility] [place] [facility] [address] [place] [address] 07/14/2020 00:00:00 07/15/2020 14:31:26 [id number] [facility] [address] [facility] [place] [facility] [address] [place] [address] 09/24/2020 00:00:00 09/24/2020 17:03:11 [id number] [facility] Nirali she[address] [place] [address] [address] [place] [address] 07/21/2021 00:00:00 07/21/2021 12:19:41 [id number] Rosi Irizarry MD [facility] [address] [place] [address] 10/27/2022 15:46:15 10/27/2022 16:32:41 Adult health examination 775445343 Z00.00 Z13.220 Flu vaccine yearlycovi d booster this [facility] fasting labs Dietary ma nagement surveillance 272682596 Z71.3 restart phentermin eDiscussed healthy diet/exerc iseReviewe d potential med s/e, d/c and be seen if any chest pain, sobf/u in 4 weeks, will monitor bp closely Prediabetes 897877256 R7 3.03 Iron defic iency anemia 17326592 D50.9 Vitamin D deficiency 347 16439 E55.9 [id number] Rosi Irizarry MD [facility] Primary Care Nirali she[address] [place] [address] [address] [place] [address] 12/07/2022 13:56:51 12/07/2022 14:23:18 Onychomycosis of toenails 477360904 B35.1 recheck liver teststerbi nafine 250 mg daily x 12 weeks Migraine 62856630 G43.90 9 trial of topiramate for both migraine and appetitef/ u in 4 weeks or sooner if needed Serum crea tinine above reference range 885586326 R79.89 Acute sinusitis 10510782 J01.90 call/retur n if no improvemen t in 1-2 days or sooner if neededrevi ewed s/s that warrant urgent/melina rgent eval in meantime Administra tion of influenza vaccine 01682468 Z23 Elevated blood-pressure reading without diagnosis of hypertension 175234042 R03.0 d/c phentermin e due to elevated bpf/u in 4 weeks [id number] Rosi Irizarry MD [facility] Primary Care [address] [facility] [place] [address] 06/13/2023 09:49:03 06/13/2023 10:20:34 Migraine 58581222 G43.909 trial of topiramate for both migraine and appetitef/ u in 4 weeks or sooner if needed Acne 74275204 L70.9 rest Elevated blood-pressure reading without diagnosis of hypertension [id number] R03.0 remain off phentermin ef/u in 6 weeks for repeat bp check [id number] CHINO GodwinKoki [facility] Primary Care [address] [facility] [place] [address] 11/25/2023 10:14:44 11/25/2023 10:42:58 Acne [id number] L70.9 chronic, stable with meds Vitamin D deficiency 347 76205 E55.9 Iron defic iency anemia 67699570 D50.9 Fatigue [id number] R53.83 [id number] PETER Juarez [facility] Primary Care [address] [place] [address] 03/14/2024 10:54:47 03/14/2024 11:26:06 Elevated blood-pressure reading without diagnosis of hypertension [id number] R03.0 148/102Fol low up in office next week for BP check. Anxiety [id number] F41.9 Will start treatment as listed below.Nathalie ent to follow up in 4-6 weeks, sooner if needed. [id number] PETER Juarez [facility] Primary Care [address] [facility] [address] 03/26/2024 15:15:17 03/26/2024 15:35:01 Health Concerns Section Related Observation LastModified by Organization Detai ls LastModified Time None Recorded Concern Status LastModified by Organization Details LastModified Time None Recorded Advance Directives Directive N: Payers Encounter Date Sequence Insurance Name Policy Number Policy Mcfadden Covered Member ID Mcfadden Member ID Guarantor Name 12/07/2022 1 [facility] ON OR AFTER 09/25/20 (MEDICAID REPLACEMENT - HMO) Natalie Fernández [id number] Natalie Colbert Pradeep 06/13/2023 1 [facility] ON OR AFTER 09/25/20 (MEDICAID REPLACEMENT - HMO) Natalie Fernández [id number] Natalie Colbert Pradeep 11/25/2023 1 [facility] ON OR AFTER 09/25/20 (MEDICAID REPLACEMENT - HMO) Natalie Fernández [id number] Natalie Colbert Pradeep 03/14/2024 1 [facility] ON OR AFTER 09/25/20 (MEDICAID REPLACEMENT - HMO) Natalie Fernández [id number] Natalie Colbert Pradeep 03/26/2024 1 [facility] ON OR AFTER 09/25/20 (MEDICAID REPLACEMENT - HMO) Natalie Colbert Pradeep [id number] Natalie Colbert Pradeep Notes Date Note Type Note Provider Name and Address Organization Details Recorded Time 12/07/2022 text/html here to f/u on phentemrine. Feeling well, no chest pain or sob. Down 6 pounds. Has been sick x 2 weeks, initially cough, sore throat, now just head/nasal congestion that won't go away. No fever. Has taken otc mucinex. Headaches are back to being more frequent, at least 4 per month Rosi Irizarry MD [address] [place] [address], [facility] [address], [place], [address], [facility] [employer] 12/07/2022 14:16:54 06/13/2023 text/html here to f/u on phentemrine. Feeling well, no chest pain or sob. Down 6 pounds. Has been sick x 2 weeks, initially cough, sore throat, now just head/nasal congestion that won't go away. No fever. Has taken otc mucinex. Headaches are back to being more frequent, at least 4 per month update 06/13/23: she d/c her phentermine because she feels her heart racing. She did note migraines improved on topiramate but she is out of it now. She is off minocycline, having breakouts of inflammatory pustules on face, denny when stressed. Rosi Irizarry MD [address], [place], [address], [employer] 06/13/2023 10:17:26 11/25/2023 text/html pt is here for f/u Colby villafuerte, CHINO-Koki [address], [place], [address], [employer] 11/25/2023 10:36:05 03/14/2024 text/html Patient is a 39 year old female that presents to the office with asymptomatic elevated blood pressure. Patient reports she had a physical completed at work, [employer] and her BP was elevated-they have checked her BP monthly since January and it has remained elevated 150s/100s so patient was informed she had to be cleared by PCP to continue working and with BP parameters.Patient denies any previous issues with elevated BP in the past. Patient does reports increase in stress with home and work life. Denies SI/HI, was previously on medicaton for anxiety but does not remember which medication. CHINO Juarez-Koki [address], [place], [address], [employer] 03/25/2024 23:18:21 OBGyn Episode No OBEpisode recorded.
--- OUTSIDE RECORDS SUMMARY | 2024-04-23 05:43 | XMS_ITS | Clinical Summary ---
Author Organization [facility] Address [address] [place] [address] Care Team Providers Care Survey And Mapping Technician Name Role Phone Rosi Irizarry MD Primary [...] 09/02/2021 9:11 PM CDT Plan of Treatment Health Maintenance Due Date Last Done Comments Cervical Cancer Screening 1986 Depression Screening 1986 Hepatitis C Screening 1986 Varicella Vaccines (1 of 2 - 13+ 2-dose series) 1999 Hepatitis B Screening 2004 Regular Well Visit/Exam 18-64 2004 Influenza Vaccine (#1) 2023 12/21/2017 DTaP/Tdap/Td Vaccine (2 - Td or Tdap) 06/22/2025 06/23/2015 HPV Vaccines Aged Out No longer eligi ble based on patient's age to complete this topic Pneumococcal vaccine <65 Aged Out No longer eligible based on patient's age to complete this topic Insurance [facility] Care Teams Survey And Mapping Technician Relationship Specialty Start Date End Date Rosi Irizarry MD [address] [place] [address] DR LARKIN [address] [place] [id number] PCP - General Family Medicine 09/02/21
[2024-04-23 05:44] VITALS: BP 120/55; PULSE 76; RESP 18; TEMP 36.2; O2SAT 100
[2024-04-23 06:44] LABS: Add Urine Microscopic? YES; Appearance Urine Clear (Clear); Bacteria Urine None Seen /hpf; Bilirubin Urine Negative (Negative); Blood Urine Negative (Negative); Color Urine Yellow (Yellow); Glucose Urine UA Negative (Negative); Ketones Urine Negative (Negative); Leukocyte Esterase Ur Negative LEU/UL (Negative); Nitrate Urine Negative (Negative); Non Pathogenic Casts 0-2; Protein Urine 1+ mg/dL (Negative); RBC Urine 0-2 /hpf (0-2); Specific Grav Ur 1.009 (1.001-1.035); Squamous Epithelial Cell Urine None Seen /hpf (Few); Urobilinogen Urine 0.2 mg/dL (<2.0); WBC Urine 0-5 /hpf (0-3); pH Urine 5.5 (5.0-9.0)
[2024-04-23 06:48] LABS: BEDSIDEPREGUCG Negative (Negative)
[2024-04-23 07:02] VITALS: BP 127/72; PULSE 81; RESP 16; O2SAT 100
--- NOTE | 2024-04-23 07:08 | ED_ITS ---
HPI - General Adult General Chief complaint: Urogenital-Female Stated complaint: Right flank pain, urinary frequency Time Seen by Provider: 04/23/24 06:55 History of Present Illness HPI narrative: Patient is a 39-year-old female who presents ER with right flank pain. Ongoing over last week. Worse with bending and twisting. Will radiate into the groin occasionally cause nausea and may feel like she needs to urinate. No dysuria. No history kidney stones. Reports kidney issues and she is referred to a architectural administrative assistant but has not yet seen him/her. No fevers or chills. Pain does improve with ibuprofen. Related Data Home Medications ?Medication ?Instructions ?Recorded ?Confirmed ?Last Taken ?Type multivitamin 1 tablet PO DAILY 07/13/22 09/29/22 Unknown History Allergies Allergy/AdvReac Type Severity Reaction Status Date / Time No Known Allergies Allergy Verified 04/23/24 05:44 Review of Systems 2 Constitutional: Constitutional: Reports no additional constitutional complaints Cardiovascular: Cardiovascular: Reports no additional cardiovascular complaints Respiratory: Respiratory: Reports no additional respiratory complaints Gastrointestinal: Gastrointestinal: Reports abdominal pain, Denies diarrhea, Reports nausea and Reports vomiting Genitourinary: Genitourinary: Denies nocturia, Denies genital lesions, Denies dysuria and Reports flank pain PMFSH Past Medical History Medical History Acne Anemia Hx of migraines Morbid obesity Surgical History Surgical History History of hysteroscopy History of tubal ligation S/P endometrial ablation S/P vaginal hysterectomy Family History Family History Father Diabetes mellitus Liver transplant recipient Mother Diabetes mellitus Grandparent Diabetes mellitus Breast cancer Social History Social History Smoking status: Never smoker Alcohol intake: current Alcohol use details: RARE Substance use: never Substance use type: does not use Lack of Transportation: No Lack of Food: Never True Current Housing: I Have Housing Concerned About Future Housing: No Difficulty Paying Gas/Electric Bills: No Difficulty Paying for Meds: No Currently Unemployed: No Education: Don't Know Difficulty w/ Childcare or Family Care: No Living arrangements: with family Additional living arrangements comments: CHILDREN Gender identity (if verbalized by the patient): Female Sexual Orientation (if Verbalized by the Patient): Straight or Heterosexual Spiritual care concerns: No Exam 2 Narrative: GENERAL: Well-appearing, obese, and in no acute distress. HEAD: Normocephalic, atraumatic. ENT: Mucous membranes moist. CHEST: Clear to auscultation. No respiratory distress. HEART: Regular rate and rhythm. Normal peripheral pulses. ABDOMEN: Soft, nontender, nondistended. EXTREMITIES: Normal range of motion. No edema. NEURO: Alert and oriented x3. PSYCH: Normal mood and affect. Course Course Emergency Course: Patient resting comfortably. Informed of lab and imaging results. Discussed case with nephrology. Patient can continue outpatient follow-up with her architectural administrative assistant as previously scheduled. Avoid NSAIDs as they are nephrotoxic and patient has been educated on this. Additionally patient is on HCTZ and lisinopril and we will also hold these medications. Discussed with Celia MAGANA who will f/u with patient at PCP office. Vital Signs Vital signs: Vital Signs Temperature 97.2 F L 04/23/24 05:44 Pulse Rate 76 04/23/24 05:44 Respiratory Rate 18 04/23/24 05:44 Blood Pressure 120/55 L 04/23/24 05:44 Pulse Oximetry 100 04/23/24 05:44 Oxygen Delivery Room Air 04/23/24 05:44 Temperature 97.2 F L 04/23/24 05:44 Pulse Rate 81 04/23/24 07:02 Respiratory Rate 16 04/23/24 07:02 Blood Pressure 127/72 04/23/24 07:02 Pulse Oximetry 100 04/23/24 07:02 Oxygen Delivery Room Air 04/23/24 05:44 Medical Decision Making Vital Signs Vital Signs: Vital Signs Temperature 97.2 F L 04/23/24 05:44 Pulse Rate 76 04/23/24 05:44 Respiratory Rate 18 04/23/24 05:44 Blood Pressure 120/55 L 04/23/24 05:44 Pulse Oximetry 100 04/23/24 05:44 Oxygen Delivery Room Air 04/23/24 05:44 Temperature 97.2 F L 04/23/24 05:44 Pulse Rate 81 04/23/24 07:02 Respiratory Rate 16 04/23/24 07:02 Blood Pressure 127/72 04/23/24 07:02 Pulse Oximetry 100 04/23/24 07:02 Oxygen Delivery Room Air 04/23/24 05:44 Lab Data 04/23/24 07:39 04/23/24 07:39 Labs: Lab Results 04/23/24 04/23/24 04/23/24 Range/Units 06:35 06:46 07:39 WBC 5.9 (4.5-10.0) K/mm3 RBC 4.85 (4.2-5.4) M/mm3 Hgb 13.4 (12.0-15.0) g/dL Hct 41.2 (37.0-47.0) % MCV 84.9 (80-100) fl MCH 27.6 (26-34) pg MCHC 32.5 (32-36) g/dl RDW 14.6 H (11.5-14.5) % Plt Count 200 (150-375) k/mm3 MPV 10.6 H (7.4-10.4) fl Immature Gran % (Auto) 0.7 H (0-0.5) % Neut % (Auto) 53.4 (45.5-73.1) % Lymph % (Auto) 38.8 (18.3-44.2) % Glasscock % (Auto) 5.1 (2.6-8.5) % Eos % (Auto) 1.5 (0-4.4) % Baso % (Auto) 0.5 (0.2-1.2) % Lymph # (Auto) 2.30 (0.9-3.2) K/mm3 Glasscock # (Auto) 0.3 (0.1-0.6) K/mm3 Eos # (Auto) 0.1 (0-0.3) K/mm3 Baso # (Auto) 0.0 (0.0-0.1) K/mm3 Abs Immat Gran (auto) 0.04 H (0.00-0.031) K/mm3 Absolute Neuts (auto) 3.2 (1.3-6.7) K/mm3 Absolute Nucleated RBC 0.000 (0.0-0.012) K/mm3 Nucleated RBC % 0.0 (0.0-0.2) % Sodium 140 (137-145) mmol/L Potassium 5.2 H (3.4-5.0) mmol/L Chloride 111 H (98-107) mmol/L Carbon Dioxide 15 L (22-30) mmol/L Anion Gap 14 H (4-12) mmol/L BUN 53 H D (7-17) mg/dL Creatinine 2.57 H (0.7-1.0) mg/dL Estim Creat Clear Calc 31 ml/min Estimated GFR 21 L (59 - ) Glucose 97 (65-110) mg/dL Calcium 9.1 (8.4-10.2) mg/dL Urine Color Yellow (Yellow) Urine Appearance Clear (Clear) Urine pH 5.5 (5.0-9.0) Ur Specific [place]shoe 1.009 (1.001-1.035) Urine Protein 1+ H (Negative) mg/dL Urine Glucose (UA) Negative (Negative) mg/dL Urine Ketones Negative (Negative) mg/dL Ur Blood (Man) Negative (Negative) Urine Nitrate Negative (Negative) Urine Bilirubin Negative (Negative) Urine Urobilinogen 0.2 (<2.0) mg/dL Leukocyte Esterase Rfl Negative (Negative) LATHA/UL Urine RBC 0-2 (0-2) /hpf Urine WBC 0-5 (0-3) /hpf Ur Squamous Epith Cells None seen (Few) /hpf Urine Bacteria None seen /hpf Urine Casts 0-2 POC Urine HCG, Qual Negative (Negative) Imaging Data Radiologist's impression: ITS Impressions Abdomen/Pelvis CT 04/23/24 07:36 Impression: No significant abnormality seen. Discharge Plan Discharge Clinical Impression: Chronic kidney disease, Low back pain Patient Disposition: Home, Self-Care Condition: Stable Instructions: Chronic Kidney Disease (ED), Acute Low Back Pain (ED) Additional Instructions: Stop taking your hydrochlorothiazide and lisinopril. Additionally do not take ibuprofen (see Advil), naproxen (Aleve), or aspirin. Only take Tylenol for pain. Follow-up with your primary care office for further treatment evaluation. Your creatinine level was 2.57 which is markedly elevated. Make sure to drink plenty of water to stay hydrated. Please return to the emergency department if you develop severe pain that is not controlled by pain medications or if you are unable to walk because of pain or weakness. Return to the emergency department immediately if you develop fevers, loss of bowel or bladder control (dribbling of urine or having accidents you wouldn't normally have), inability to urinate, numbness of your genital or anal area, or weakness/numbness of your legs or arms as these could all be signs of a serious medical emergency. Patient Language: Icelandic Prescriptions: New cyclobenzaprine 10 mg tablet 10 mg PO TID PRN (Reason: muscle spasm) Qty: 14 0RF No Action phentermine 37.5 mg capsule 37.5 mg PO DAILY Qty: 30 1RF Rx Instructions: must administer 30 minutes before or 1-2 hours after breakfast multivitamin Tablet 1 tablet PO DAILY Follow-up/Referrals: Edie,Rosi Clement MD [Primary Care Provider] - Castalia,Celia Styles NP [Non-Staff] - 1 Week
[2024-04-23 07:43] LABS: Basophils Percent Auto 0.5 % (0.2-1.2); Eosinophils Absolute Auto 0.1 K/mm3 (0-0.3); Eosinophils Percent Auto 1.5 % (0-4.4); Hematocrit 41.2 % (37.0-47.0); Hemoglobin 13.4 g/dL (12.0-15.0); Immature Granulocyte Absolute 0.04 K/mm3 (0.00-0.031); Immature Granulocyte Percent A 0.7 % (0-0.5); Lymphocytes Percent Auto 38.8 % (18.3-44.2); Mean Corpuscular HGB Conc 32.5 g/dl (32-36); Mean Corpuscular Hemoglobin 27.6 pg (26-34); Mean Corpuscular Volume 84.9 fl (80-100); Mean Platelet Volume 10.6 fl (7.4-10.4); Monocytes Absolute Auto 0.3 K/mm3 (0.1-0.6); Monocytes Percent Auto 5.1 % (2.6-8.5); Neutrophils Absolute Auto 3.2 K/mm3 (1.3-6.7); Neutrophils Percent Auto 53.4 % (45.5-73.1); Platelet Count Result 200 k/mm3 (150-375); Red Blood Count 4.85 M/mm3 (4.2-5.4); Red Cell Distribution Width 14.6 % (11.5-14.5); White Blood Count 5.9 K/mm3 (4.5-10.0)
[2024-04-23 07:54] LABS: Anion Gap 14 mmol/L (4-12); Blood Urea Nitrogen 53 mg/dL (7-17); Calcium 9.1 mg/dL (8.4-10.2); Carbon Dioxide 15 mmol/L (22-30); Chloride 111 mmol/L (98-107); Estimated CRCL calculation 31 ml/min; Estimated Glomerular Filt Rate 21; Glucose 97 mg/dL (65-110); Potassium 5.2 mmol/L (3.4-5.0); Sodium 140 mmol/L (137-145)
--- OUTSIDE RECORDS SUMMARY | 2024-04-23 08:02 | XMS_ITS | Clinical Summary ---
Author Organization [facility] Facility Address [address] [address] Care Team Providers Care [employer] Name Role Phone Celia BanuelosP-C Primary Care Provider [phone] Encounters Date Type Department Care Team Description 03/15/2024 Documentation Only [place] [employer] [facility] (ABAM) [address] [address] ProviderSanjay MD from Last 3 [...] Description 06/12/2024 11:15 AM CDT Office Visit [place] [employer] [facility], [facility] [address] [address] Jacinto Krishnamurthy MD [address] [place] [address] Health Maintenance Due Date Last Done Comments Pneumococcal Vaccine: Pediat rics (0 to 5 Years) and At-Risk Patients (6 to 64 Years) (1 of 2 - PCV) 1992 Hepatitis B Vaccine (2 of 3 - 3-dose series) 06/27/1998 05/30/1998 Influenza Vaccine (#1) 2023 12/07/2022, 2017 Care Teams [place] [employer] Relationship Specialty Start Date End Date Celia Banuelos FNP-C [address] [place] [address] PCP - General Family Medicine 03/15/24
--- OUTSIDE RECORDS SUMMARY | 2024-04-23 08:02 | XMS_ITS | Referral Summary ---
Author Organization [facility] Address [address] [place] [address] Care Team Providers Care Welfare Visitor Name Role Phone Rosi Irizarry MD Primary [...] Plan of Treatment Not on file Insurance [facility] Care Teams Welfare Visitor Relationship Specialty Start Date End Date Rosi Irizarry MD [address] [place] [address] [address] PCP - General Family Medicine 09/02/21
--- OUTSIDE RECORDS SUMMARY | 2024-04-23 08:03 | XMS_ITS | Clinical Summary ---
Author Organization [facility] Address [address] [place] [address] Care Team Providers Care Product Assurance Engineer Name Role Phone Rosi Irizarry MD Primary [...] patient's age to complete this topic Insurance [facility] Care Teams Product Assurance Engineer Relationship Specialty Start Date End Date Rosi Irizarry MD [address] [place] [address] DR LARKIN [address] [place] [id number] PCP - General Family Medicine 09/02/21
[2024-04-23 09:11] VITALS: BP 124/77; PULSE 77; RESP 16; TEMP 36.6; O2SAT 99
== END 2024-04-23 09:11 | disposition home or self-care (01) ==
PROVIDERS: Student in an Organized Health Care Education/Training Program; Emergency Provider Emergency Medicine; PCP Family Medicine
DX: N18.9 Chronic kidney disease, unspecified (principal); M54.50 Low back pain, unspecified; E66.01 Morbid (severe) obesity due to excess calories; Z68.39 Body mass index [BMI] 39.0-39.9, adult; Z90.710 Acquired absence of both cervix and uterus
CPT/HCPCS: 36415; 74176; 80048; 81001; 81025; 85025; 99284

== ENCOUNTER 2024-05-07 20:33 | Emergency (ER) | payer OTHER, SELFPAY ==
--- NOTE | ~2024-05-07 | XR_ITS ---
Clinical Indication: Cough PA and lateral views of the chest: Comparison: None Findings: The lungs are clear, without evidence of focal consolidation or pleural effusion. Cardiome diastinal silhouette is within normal limits. Bones and soft tissues are unremarkable. Impression: Normal chest. Reviewed, dictated and finalized at location . IT AUTHORIZER Impression: Normal chest.
--- OUTSIDE RECORDS SUMMARY | 2024-05-07 20:35 | XMS_ITS | Data Portability ---
Author Organization [place] - [facility] [place], Main Office Address [address] [place] [address] Assessment No assessment recorded. Plan of Treatment Reminders Order Date Submit Date Provider Last Modified By Organization Details Last Modified Time Details Appointments Physical/ Annual Wellness 30 2024 01:30P Eleni Banuelos NP Not available Not available Not available Lab hepatic function panel, serum 2022 023 WALDO Not available 12/07/2022 20:20:13 BMP, serum or plasma 2022 023 WALDO Not available 12/07/2022 20:20:23 vitamin D, 25-hydrox y, total, serum [address] (Lab), [address] [place], [address], 11/25/2023 10:41:40 TSH, serum or plasma [address] (Lab), [address] [place], [address], 11/25/2023 10:42:12 CBC 2023 024 [facility] (Lab), [address] [place], [address], 11/25/2023 10:41:50 vitamin B12 + folate, serum or blood 2023 024 [facility] (Lab), [address] [place], [address], 11/25/2023 10:42:02 CBC w/ auto diff [address] (Lab), [address] [place], [address], 03/14/2024 11:26:12 CMP, serum or plasma [address] (Lab), [address] [place], [address], 03/14/2024 11:26:44 Referral None recorded. Procedures None recorded. Surgeries None recorded. Imaging None recorded. Medication Orders topiramat e 25 mg tablet [address] [facility], [address] [place], [place], [id number], 03/14/2024 11:00:00 amoxicill in 875 mg tablet [address] [facility]70273, [address] [place], [place], [id number], 06/13/2023 10:07:59 terbinafi ne HCl 250 mg tablet [address] [facility]82964, [address] [facility], [place], [place], [id number], 06/13/2023 10:09:01 minocycli ne 100 mg tablet 2023 024 WAL[facility] #29833, [address] [place], [place], [id number], 06/13/2023 10:12:06 topiramat e 25 mg tablet [address] [facility]00760, [address] [place], [place], [id number], 03/14/2024 11:00:00 Vitamin D3 50 mcg (2,000 unit) capsule 2023 [facility] #72491, [address] [place], [place], [id number], 11/25/2023 10:31:13 minocycli ne 100 mg tablet 2023 024 [facility] #54941, [address] [place], [place], [id number], 11/25/2023 10:31:16 ferrous sulfate 325 mg (65 mg iron) tablet 2023 024 [facility] #67956, [address] [place], [place], [id number], 11/25/2023 10:31:15 lisinopri l 10 mg tablet 2023 024 [facility] #17616, [address] [place], [place], [id number], 03/14/2024 11:14:31 buspirone 5 mg tablet 2023 024 [facility] #93567, [address] [place], [place], [id number], 03/14/2024 11:14:31 Patient TargetsNo targets recorded. Patient InstructionsNo instructions recorded. Reason for Referral None Reported. Results Created Date Observation Date Name Description Value Unit Range Abnormal Flag Note LastModifiedBy Organization Detail LastModifiedTime 12/08/1912/07/2022 HEPAT IC/LI YELENA PANEL alkaline phosphatase 71 U/L 38-126 Not Available [facility] (Lab) [address] [place], [address], 12/07/2022 20:20:13 12/08/19 23 12/07/2022 HEPAT IC/LI YELENA PANEL alanine aminotransfe rase 30 U/L 0-35 Not Available [facility] (Lab) [address] [place], [address], 12/07/2022 20:20:13 12/08/19 23 12/07/2022 HEPAT IC/LI YELENA PANEL aspartate aminotransfe rase 31 U/L 15-37 Not Available [facility] (Lab) [address] [place], [address], 12/07/2022 20:20:13 12/08/19 23 12/07/2022 HEPAT IC/LI YELENA PANEL bilirubin, total 0.20 mg/dL 0.20-1 .30 Not Available [facility] (Lab) [address] [place], [address], 12/07/2022 20:20:13 12/08/19 23 12/07/2022 HEPAT IC/LI YELENA PANEL bilirubin, conjugated (direct) 0.00 mg/dL 0.00-0 .30 Not Available [facility] (Lab) [address] [place], [address], 12/07/2022 20:20:13 12/08/19 23 12/07/2022 HEPAT IC/LI YELENA PANEL biliurubin,u ncong. (indirect) 0.10 mg/dL 0.00-1 .1 Not Available [facility] (Lab) [address] [place], [address], 12/07/2022 20:20:13 12/08/19 23 12/07/2022 HEPAT IC/LI YELENA PANEL total protein 7.4 g/dL 6.3-8. 2 Not Available [facility] (Lab) [address] [place], [address], 12/07/2022 20:20:13 12/08/19 23 12/07/2022 HEPAT IC/LI YELENA PANEL albumin 4.0 g/dL 3.4-5. 0 Not Available [facility] (Lab) [address] [place], [address], 12/07/2022 20:20:13 12/08/19 23 12/07/2022 HEPAT IC/LI YELENA PANEL globulin 3.4 g/dL 2.6-4. 2 Not Available [facility] (Lab) [address] [place], [address], 12/07/2022 20:20:13 12/08/19 23 12/07/2022 HEPAT IC/LI YELENA PANEL A/G ratio 1.2 ratio 1.0-2. 0 Not Available [facility] (Lab) [address] [place], [address], 12/07/2022 20:20:13 12/08/19 23 12/07/2022 BASIC METAB OLIC PANEL sodium 140 mmol/ L 137-14 5 Not Available [facility] (Lab) [address] [place], [address], 12/07/2022 20:20:23 12/08/19 23 12/07/2022 BASIC METAB OLIC PANEL potassium 4.1 mmol/ L 3.5-5. 1 Not Available [facility] (Lab) [address] [place], [address], 12/07/2022 20:20:23 12/08/19 23 12/07/2022 BASIC METAB OLIC PANEL chloride 107 mmol/ L 98-107 Not Available [facility] (Lab) [address] [place], [address], 12/07/2022 20:20:23 12/08/19 23 12/07/2022 BASIC METAB OLIC PANEL carbon dioxide 24 mmol/ L 22-30 Not Available [facility] (Lab) [address] [place], [address], 12/07/2022 20:20:23 12/08/19 23 12/07/2022 BASIC METAB OLIC PANEL anion gap 13.1 mmol/ L 14-22 low Not Available [facility] (Lab) [address] [place], [address], 12/07/2022 20:20:23 12/08/1912/07/2022 BASIC METAB OLIC PANEL glucose 85 mg/dL 70-99 Not Available [facility] (Lab) [address] [place], [address], 12/07/2022 20:20:23 12/08/1912/07/2022 BASIC METAB OLIC PANEL BUN 19 mg/dL 8-19 Not Available [facility] (Lab) [address] [place], [address], 12/07/2022 20:20:23 12/08/1912/07/2022 BASIC METAB OLIC PANEL creatinine 1.68 mg/dL 0.66-1 .25 high Not Available [facility] (Lab) [address] [place], [address], 12/07/2022 20:20:23 12/08/1912/07/2022 BASIC METAB OLIC PANEL GFR 34 Refer ence Range : [place] ge GFR Healt hy Adult : >60 [...] calcu lator is avail able on the [facility] websi te: https ://ww w.kid desiree.o rg/pr ofess ional s/kdo qi/gf r_cal culat or Not Available [facility] (Lab) [address] [place], [address], 12/07/2022 20:20:23 12/08/19 23 12/07/2022 BASIC METAB OLIC PANEL calcium 9.0 mg/dL 8.4-10 .2 Not Available [facility] (Lab) [address] [place], [address], 12/07/2022 20:20:23 08/09/19 24 08/09/2023 CT, brain , w/o contr ast No observ ation record ed. [address], [place], [address], 08/13/2023 19:28:05 04/23/19 25 04/23/2024 imagi ng/di agnos tic resul t No observ ation record ed. [address], [place], [address], 04/23/2024 08:41:25 Result Notes None recorded. Problems Name Problem SNOMED Code Status Onset Date Resolution Date Notes Provider Name and Address Organization Details Recorded Time Acute sinusitis 95878541 Active Not Available [facility] 3 02:39:45 Acute situational disturbance 282568781 Active Apsen Mabry APRN [address] [facility], [facility] [address], [place], [address] , [employer] 4 16:40:05 Steatosis of liver 981410719 Active Aspen Mabry APRN [address] [facility], [place], [address] , [employer] 4 16:40:40 Vitamin D deficiency 11865542 Active 2017 Aspen Mabry APRN [address], [place], [address] , [place] [facility] 4 16:40:28 Obesity 559528360 Active Aspen Mabry APRN [address], [place], [address] , [place] [facility] 4 16:40:23 Onychomycosis 825522052 Active Not Available [facility] 3 02:39:45 Hyperlipidemi a 25897772 Active Aspen Mabry APRN [address], [place], [address] , [employer] [facility] 4 16:40:07 Prediabetes 514788383 Active 2021 Aspen Mabry APRN [address], [place], [address] , [employer] [facility] 4 16:40:25 Hyperglycemia 92428683 Active Not Available [facility] 3 02:39:45 Iron deficiency anemia 38926913 Active 2016 Aspen Mabry APRN [address], [place], [address] , [employer] [facility] 4 16:40:17 Serum creatinine above reference range 950064435 Active 2022 Rosi Irizarry MD [address], [place], [address] , [employer] [facility] 3 08:03:13 Onychomycosis of toenails 724468605 Active 2022 Rosi Irizarry MD [address], [place], [address] , [place] [facility] 3 14:07:09 Increased liver function 30810438 Active 2022 Rosi Irizarry MD [address], [place], [address] , [employer] [facility] 3 14:07:15 Migraine 23168979 Active 2022 Aspen Mabry APRN [address], [place], [address] , [employer] [facility] 4 16:40:20 Elevated blood-pressur e reading without diagnosis of hypertension 588969981 Active 2022 Rosi Irizarry MD [address], [place], [address] , [facility] 3 14:16:17 Acne 66622627 Active 2023 Rosi Irizarry MD [address], [address] [place] [address], [place], [address] , [facility] 4 10:11:34 Fatigue 73670004 Active 2023 PETER Godwin [address], [address] [place] [address], [place], [address] , [facility] 4 10:30:47 Anxiety 11481867 Active 2023 PETER Juarez [address], [address] [address], [place], [address] , [employer] 4 11:12:23 Creatine kinase level above reference range 699176211 Active 2023 PETER Juarez [address], [address] [place] [address], [place], [address] , [employer] 4 15:01:33 Essential hypertension 86210592 Active 2024 PETER Juarez [address], [place], [address] , [employer] [facility] 5 17:03:33 Problem Notes None recorded. Procedures Surgical History Date Name Laterality Status Provider Name and Address Organization Details Recorded Time Hysterectomy completed Jeana Jaquez LPN [employer] [facility] 07/22/2022 09:07:36 Imaging Results Imaging Date Name Status LastModified by Organiz ation Details LastModified Time 08/09/2023 CT, brain, w/o contrast completed [address], [place], [address], 08/13/2023 19:28:05 04/23/2024 imaging/diagn ostic result active [facility] [address], [place], [address], 04/23/2024 08:41:25 Procedure Notes None recorded. Medical Equipment None [...] Address Organization Details Last Updated DateTime 3 16494.5 4 g 98.3 [degF] 90 /min 99 % 99 % 190 mm[Hg] 118 mm[Hg] Kamran Fraire RN [facility] 3 14:01:54 Date Recorded Body weight Body temperature Heart rate Systolic blood pressure Diastolic blood pressure Provider Name and Address Organization Details Last Updated DateTime 06/13/2023 10978.3 6 g 97.6 [degF] 92 /min 146 mm[Hg] 78 mm[Hg] Kamran Fraire RN [facility] 4 09:58:09 Date Recorded Body weight Body mass index (BMI) Body height Body temperature Heart rate Oxygen saturation Oxygen saturation in Arterial blood by Pulse oximetry Systolic blood pressure Diastolic blood pressure Provider Name and Address Organization Details Last Updated DateTime 4 89876.3 2 g 39 kg/m2 160.02 cm 98.5 [degF] 61 /min 100 % 100 % 130 mm[Hg] 88 mm[Hg] Ritika Raya RN [facility] 10:19:55 Date Recorded Body height Body mass index (BMI) Body weight Body temperature Heart rate Oxygen saturation Oxygen saturation in Arterial blood by Pulse oximetry Systolic blood pressure Diastolic blood pressure Provider Name and Address Organization Details Last Updated DateTime 4 160.02 cm 40.2 kg/m2 477875. 47 g 97.6 [degF] 75 /min 98 % 98 % 148 mm[Hg] 102 mm[Hg] Ritika Raya RN [facility] 4 10:59:48 Date Recorded Body height Systolic blood pressure Diastolic blood pressure Provider Name and Address Organization Details Last Updated DateTime 03/26/2024 160.02 cm 140 mm[Hg] 96 mm[Hg] Christy Doan RN [facility] 03/26/2024 15:27:13 Social History Question Answer Notes LastModified by Amorelie ion Details LastModified Time Tobacco Smoking Status Never Smoker Not Available [facility] 05/26/2022 02:33:30 Do You Have An Advance Directive? No [id number] Information not available 05/26/2022 What Is Your Level Of Alcohol Consumption? None [id number] 26 Information not available 05/26/2022 What Is Your Level Of Caffeine Consumption? None [id number] 26 Information not available 05/26/2022 Are There Any Guns Present In Your Home? No [id number] 26 Information not available 05/26/2022 Do You Use Sunscreen Routinely? No [id number] 26 Information not available 05/26/2022 Sex: Unknown Functional Status None recorded. Mental Status None recorded. Family History Relationship Description Onset Age of this Age Resolved Age Notes LastModified by Organization Details LastModified Time Mother Diabetes mellitus [id number] Not available 05/26/2022 02:34:25 Paternal Aunt Diabetes mellitus [id number].424 [id number] Not available 05/26/2022 02:34:25 Paternal Grandmother Family history of malignant neoplasm [id number].296 [id number] Not available 05/26/2022 02:34:25 Medical History No medical history recorded. Gynecological HistoryNo gynecological history recorded. Obstetrics History GPAL:G 0 P 0 0 0 0 Immunizations Vaccine Type Date Status Note Provider Nam e and Address Organization Details Recorded Time Tdap 06/23/2015 completed Not Available [facility] 05/26/2022 02:46:20 Influenza, split virus, quadrivalent, PF 12/21/2017 completed Not Available [facility] 03/2022 02:46:20 COVID-19, mRNA, LNP-S, PF, 30 mcg/0.3 mL dose 06/12/2020 completed Aspen Mabry APRN [address], [place], [address], [employer] [facility] 03/06/2024 16:36:39 COVID-19, mRNA, LNP-S, PF, 30 mcg/0.3 mL dose 07/06/2020 completed Aspen Mabry APRN [address], [address], [place], [address], [employer] [facility] 03/06/2024 16:36:39 Tdap 05/19/2017 completed Aspen Mabry APRN [address], [place], [address], [employer] [facility] 03/06/2024 16:36:39 HPV, bivalent 05/30/2008 completed sApen alcantar, [employer]AY[employer]PERVIS[employer] [address], [address], [place], [address], [employer] [facility] 03/06/2024 16:36:39 HPV, bivalent 07/12/2007 completed Aspen alcantar, [employer]PER[employer] [address], [place], [address], [employer] [facility] 03/06/2024 16:36:39 Hep B, adolescent or pediatric 05/30/1998 completed Aspen Mabry APRN [address], [place], [address], [employer] [facility] 03/06/2024 16:36:39 Influenza, split virus, quadrivalent, PF 12/07/2022 completed Kamran Fraire RN [facility], [place] - [facility] 12/07/2022 14:28:24 Past Encounters Encounter ID Performer Location Encounter Start Date Encounter Closed Date Diagnosis/Indication Diagnosis SNOMED-CT Code Diagnosis ICD10 Code Diagnosis Note [id number] [facility] Primary Care [facility] [address] [facility] [address] [place] [address] 06/26/2020 00:00:00 06/26/2020 17:17:05 [id number] [facility] Primary Care [facility] [address] [facility] [address] [place] [address] 07/14/2020 00:00:00 07/15/2020 14:31:26 [id number] [facility] [address] [facility] [address] [facility] [place] [address] 09/24/2020 00:00:00 09/24/2020 17:03:11 [id number] [facility] [address] [place] [address] [address] [facility] [place] [address] 07/21/2021 00:00:00 07/21/2021 12:19:[id number] [facility] [facility] [address] [facility] 140 [facility] [place] [address] 10/27/2022 15:46:15 10/27/2022 16:32:41 Adult health examination 281184138 Z00.00 Z13.220 Flu vaccine yearlycovi d booster this [facility] fasting labs Dietary ma nagement surveillance 357180495 Z71.3 restart phentermin eDiscussed healthy diet/exerc iseReviewe d potential med s/e, d/c and be seen if any chest pain, sobf/u in 4 weeks, will monitor bp closely Prediabetes 246383714 R7 3.03 Iron defic iency anemia 28647550 D50.9 Vitamin D deficiency 347 38183 E55.9 [id number] Rosi Irizarry MD [facility] [address] [place] [address] [address] [facility] [place] [address] 12/07/2022 13:56:51 12/07/2022 14:23:18 Onychomycosis of toenails 489449765 B35.1 recheck liver teststerbi nafine 250 mg daily x 12 weeks Migraine 80051581 G43.90 9 trial of topiramate for both migraine and appetitef/ u in 4 weeks or sooner if needed Serum crea tinine above reference range 887960494 R79.89 Acute sinusitis 81640646 J01.90 call/retur n if no improvemen t in 1-2 days or sooner if neededrevi ewed s/s that warrant urgent/melina rgent eval in meantime Administra tion of influenza vaccine 18875740 Z23 Elevated blood-pressure reading without diagnosis of hypertension 247427591 R03.0 d/c phentermin e due to elevated bpf/u in 4 weeks [id number] Rosi Irizarry MD [facility] Primary Care [address] [place] [address] 06/13/2023 09:49:03 06/13/2023 10:20:34 Migraine 55064383 G43.909 trial of topiramate for both migraine and appetitef/ u in 4 weeks or sooner if needed Acne 89235417 L70.9 rest Elevated blood-pressure reading without diagnosis of hypertension 359508791 R03.0 remain off phentermin ef/u in 6 weeks for repeat bp check [id number] CHINO Godwin-Koki [facility] Primary Care [address] [place] [address] 11/25/2023 10:14:44 11/25/2023 10:42:58 Acne 22349174 L70.9 chronic, stable with meds Vitamin D deficiency 347 54539 E55.9 Iron defic iency anemia 25612393 D50.9 Fatigue 58945897 R53.83 [id number] CHINO Juarez-Koki [facility] Primary Care [address] [place] [address] 03/14/2024 10:54:47 03/14/2024 11:26:06 Elevated blood-pressure reading without diagnosis of hypertension 868103820 R03.0 148/102Fol low up in office next week for BP check. Anxiety 04106708 F41.9 Will start treatment as listed below.Nathalie ent to follow up in 4-6 weeks, sooner if needed. [id number] Celia Banuelos, ELECTROLYTIC DE SCALER-C [facility] Primary Care Nirali shepherd [address] [facility] [address] [place] [address] 03/26/2024 15:15:17 03/26/2024 15:35:01 Health Concerns Section Related Observation LastModified by Organization Detai ls LastModified Time None Recorded Concern Status LastModified by Organization Details LastModified Time None Recorded Advance Directives Directive N: Payers Encounter Date Sequence Insurance Name Policy Number Policy Mcfadden Covered Member ID Mcfadden Member ID Guarantor Name 12/07/2022 1 [facility] ON OR AFTER 09/25/20 (MEDICAID REPLACEMENT - HMO) Natalie Fernández [id number] Natalie Fernández 06/13/2023 1 [facility] ON OR AFTER 09/25/20 (MEDICAID REPLACEMENT - HMO) Natalie Fernández [id number] Natalie Fernández 11/25/2023 1 [facility] ON OR AFTER 09/25/20 (MEDICAID REPLACEMENT - HMO) Natalie Fernández [id number] Natalie Fernández 03/14/2024 1 [facility] ON OR AFTER 09/25/20 (MEDICAID REPLACEMENT - HMO) Natalie Fernández [id number] Natalie Fernández 03/26/2024 1 [facility] ON OR AFTER 09/25/20 (MEDICAID REPLACEMENT - HMO) Natalie Fernández [id number] Natalie Fernández Notes Date Note Type Note Provider Name [...] least 4 per month Rosi Irizarry MD [address] [place], [place] [address]angie, [address] [address], [place], [address], [employer] 12/07/2022 14:16:54 06/13/2023 text/html here to f/u [...] denny when stressed. Rosi Irizarry MD [address], [place], [address], [employer] 06/13/2023 10:17:26 11/25/2023 text/html pt is here for f/u Colby villafuerte, ELECTROLYTIC DE SCALER-C [address], [place], [address], [employer] 11/25/2023 10:36:05 03/14/2024 text/html Patient is a 39 year old female that presents to the office with asymptomatic elevated blood pressure. Patient reports she had a physical completed at work, [employer], and her BP was elevated-they have checked [...] anxiety but does not remember which medication. PETER Juarez [address], [place], [address], [employer] [facility] 03/25/2024 23:18:21 OBGyn Episode No OBEpisode recorded.
--- OUTSIDE RECORDS SUMMARY | 2024-05-07 20:35 | XMS_ITS | Clinical Summary ---
Author Organization [facility] Facility Address [address] [address] Care Team Providers Care Turret Punch Press Operator Name Role Phone Celia BanuelosP-C Primary Care Provider [phone] Encounters Date Type Department Care Team Description 03/15/2024 Documentation Only [place] [facility] [address] [address] ProviderSanjay MD from Last 3 [...] Description 06/12/2024 11:15 AM CDT Office Visit [place] [employer], [facility] [address] [address] Jacinto Krishnamurthy MD [address] [place] [address] Health Maintenance Due Date Last Done Comments Pneumococcal Vaccine: Pediat rics (0 to 5 Years) and At-Risk Patients (6 to 64 Years) (1 of 2 - PCV) 1992 Hepatitis B Vaccine (2 of 3 - 3-dose series) 06/27/1998 05/30/1998 Influenza Vaccine (#1) 2023 12/07/2022, 2017 Care Teams Turret Punch Press Operator Relationship Specialty Start Date End Date Celia Banuelos FNP-C [address] [place] [address] PCP - General Family Medicine 03/15/24
--- OUTSIDE RECORDS SUMMARY | 2024-05-07 20:36 | XMS_ITS | Referral Summary ---
Author Organization [facility] Address [address] [place] [address] Care Team Providers Care Workday Senior Associate Name Role Phone Rosi Irizarry MD Primary [...] 87 09/03/2021 11:37 AM CDT Temperature 37.2 C (99 F) 09/03/2021 11:37 AM CDT Respiratory Rate 20 09/03/2021 11:37 AM CDT Oxygen Saturation 100% 09/03/2021 11:37 AM CDT Inhaled Oxygen Concentration - - Weight 104.3 kg (230 lb) 09/02/2021 9:11 PM CDT Height 162.6 cm (5' 4 ) 09/02/2021 9:11 PM CDT Body Mass Index 39.48 09/02/2021 9:11 PM CDT Plan of Treatment Not on file Insurance [facility] Care Teams Workday Senior Associate Relationship Specialty Start Date End Date Rosi Irizarry MD [address] [place] [address] PCP - General Family Medicine 09/02/21
--- OUTSIDE RECORDS SUMMARY | 2024-05-07 20:36 | XMS_ITS | Clinical Summary ---
Author Organization [facility] Address [address] [place] [address] Care Team Providers Care Production Inspector Name Role Phone Rosi Irizarry MD Primary [...] patient's age to complete this topic Insurance [facility] Care Teams Production Inspector Relationship Specialty Start Date End Date Rosi Irizarry MD [address] [place] [address] DR [address] [place] [phone] PCP - General Family Medicine 09/02/21
[2024-05-07 21:06] VITALS: BP 135/94; PULSE 107; RESP 16; TEMP 37.2; O2SAT 100
--- OUTSIDE RECORDS SUMMARY | 2024-05-07 23:20 | XMS_ITS | Clinical Summary ---
Author Organization [facility] Facility Address [address] [address] Care Team Providers Care Home Care Associate Name Role Phone Celia BanuelosP-C Primary Care Provider [phone] Encounters Date Type Department Care Team Description 03/15/2024 Documentation Only [facility] [employer] [facility] [address] [address] ProviderSanjay MD from Last 3 [...] Description 06/12/2024 11:15 AM CDT Office Visit [facility] [employer] [facility], [facility] [address] [address] Jacinto Krishnamurthy MD [address] [place] [phone] Health Maintenance Due Date Last Done Comments Pneumococcal Vaccine: Pediat rics (0 to 5 Years) and At-Risk Patients (6 to 64 Years) (1 of 2 - PCV) 1992 Hepatitis B Vaccine (2 of 3 - 3-dose series) 06/27/1998 05/30/1998 Influenza Vaccine (#1) 2023 12/07/2022, 2017 Care Teams Home Care Associate Relationship Specialty Start Date End Date Celia Banuelos FNP-C [address] [place] [address] PCP - General Family Medicine 03/15/24
--- OUTSIDE RECORDS SUMMARY | 2024-05-07 23:20 | XMS_ITS | Referral Summary ---
Author Organization [facility] Address [address] [place] [address] Care Team Providers Care Sr Risk Management Consultant Name Role Phone Rosi Irizarry MD Primary [...] Plan of Treatment Not on file Insurance [facility] Care Teams Sr Risk Management Consultant Relationship Specialty Start Date End Date Rosi Irizarry MD [address] [place] [phone] PCP - General Family Medicine 09/02/21
--- OUTSIDE RECORDS SUMMARY | 2024-05-07 23:20 | XMS_ITS | Clinical Summary ---
Author Organization [facility] Address [address] [place] [address] Care Team Providers Care Supervisor Electric Name Role Phone Rosi Irizarry MD Primary [...] patient's age to complete this topic Insurance [facility] Care Teams Supervisor Electric Relationship Specialty Start Date End Date Rosi Irizarry MD [address] [place] [address] DR L[address] [place] [phone] PCP - General Family Medicine 09/02/21
[2024-05-08] MEDS: ONDANSETRON HCL ODT 4 MG TABLET 8 MG PO
[2024-05-08] MEDS: ACETAMINOPHEN 500 MG TABLET 1000 MG PO
[2024-05-08 00:21] LABS: Influenza A QL RT-PCR Positive (Negative); Influenza B QL RT-PCR Negative (Negative); RSV RNA, RT-PCR Negative (Negative); SARS-CoV-2 RNA PCR Negative (Negative)
--- NOTE | 2024-05-08 00:27 | ED_ITS ---
HPI - URI/Sore Throat General Chief Complaint: Upper Respiratory Infection Stated Complaint: flu like sx Time Seen by Provider: 05/07/24 22:50 History of Present Illness HPI Narrative: Patient is a 39-year-old female who presents to the ER with complaints of upper respiratory infection symptoms. She reports her symptoms started approximately 3 days ago and include vomiting, body aches, ribcage pain, congestion, fever. Patient also endorses some intermittent wheezing. She endorses a history of high blood pressure and chronic kidney disease. Patient reports she has been taking Tylenol [id number] and TheraFlu. She denies any difficulty breathing, cardiac chest pain, or back pain. Related Data Home Medications ?Medication ?Instructions ?Recorded ?Confirmed ?Last Taken ?Type multivitamin 1 tablet PO DAILY 07/13/22 09/29/22 Unknown History Allergies Allergy/AdvReac Type Severity Reaction Status Date / Time No Known Allergies Allergy Verified 05/07/24 21:29 Review of Systems Review of Systems: All systems reviewed & are unremarkable except as noted in HPI and below PMFSH Past Medical History Medical History Morbid obesity Hx of migraines Acne Anemia Surgical History Surgical History S/P vaginal hysterectomy S/P endometrial ablation History of hysteroscopy History of tubal ligation Family History Family History Father Diabetes mellitus Liver transplant recipient Mother Diabetes mellitus Grandparent Diabetes mellitus Breast cancer Social History Social History Smoking status: Never smoker Alcohol intake: current Alcohol use details: RARE Substance use: never Substance use type: does not use Lack of Transportation: No Lack of Food: Never True Current Housing: I Have Housing Concerned About Future Housing: No Difficulty Paying Gas/Electric Bills: No Difficulty Paying for Meds: No Currently Unemployed: No Education: Don't Know Difficulty w/ Childcare or Family Care: No Living arrangements: with family Additional living arrangements comments: CHILDREN Gender identity (if verbalized by the patient): Female Sexual Orientation (if Verbalized by the Patient): Straight or Heterosexual Spiritual care concerns: No Exam Narrative: GENERAL: Ill-appearing, well-nourished, non-toxic, in no acute distress. HEAD: Normocephalic, atraumatic. NECK: Supple. No adenopathy, no masses. RESPIRATORY: Airway patent, respirations nonlabored. Clear to auscultation bilaterally, no rales, rhonchi, wheezing. CARDIOVASCULAR: Tachycardia, regular rhythm without murmurs, rubs, or gallops. Peripheral pulses 2+ and equal bilaterally. ABDOMINAL: Soft, nontender, nondistended, no hepatosplenomegaly. Normoactive BS. MUSCULOSKELETAL: Moves all extremities. Strength/ROM intact without gross deformities. SKIN: Warm, dry, normal color. No rashes. NEURO: A&O X3. Speech clear. Cranial nerves intact. No ataxic movements. PSYCHIATRIC: Appropriate mood and affect. Normal interaction. Course Vital Signs Vital signs: Vital Signs Temperature 37.2 C 05/07/24 21:06 Pulse Rate 107 H 05/07/24 21:06 Respiratory Rate 16 05/07/24 21:06 Blood Pressure 135/94 H 05/07/24 21:06 Pulse Oximetry 100 05/07/24 21:06 Oxygen Delivery Room Air 05/07/24 21:06 Temperature 37.2 C 05/07/24 21:06 Pulse Rate 107 H 05/07/24 21:06 Respiratory Rate 16 05/07/24 21:06 Blood Pressure 135/94 H 05/07/24 21:06 Pulse Oximetry 100 05/07/24 21:06 Oxygen Delivery Room Air 05/07/24 21:06 MDM - URI/Sore Throat MDM Narrative Medical decision making narrative: Patient is a 39-year-old female who presents to the ER with complaints of upper respiratory infection symptoms. She reports her symptoms started approximately 3 days ago and include vomiting, body aches, ribcage pain, congestion, fever. Patient also endorses some intermittent wheezing. She endorses a history of high blood pressure and chronic kidney disease. Patient reports she has been taking Tylenol [id number] and TheraFlu. She denies any difficulty breathing, cardiac chest pain, or back pain. Labs Ordered: COVID/flu/RSV swab Imaging Ordered: Chest x-ray Medications Ordered: Zofran 8 mg p.o., Tylenol 1 g p.o. Results: Pt's chest x-ray was unremarkable for any acute abnormalities. Diagnosis: Influenza A Patient Education/Shared MDM: Results shared with patient. She endorses improvement following medication administration. Patient strongly advised to maintain hydration status upon discharge and follow-up with her PCP. She will be discharged home with prescription for Tessalon Perles, an albuterol inhaler, and Zofran. Strict return precautions provided. Patient verbalized understanding is in agreement with plan. Vital signs stable at time of discharge. All questions answered. Differential Diagnosis Differential diagnosis: Likely upper respiratory infection, viral infection, bronchitis and influenza Lab Data Attestation: I reviewed the patient's lab results. Labs: Lab Results 05/07/24 Range/Units 23:38 Influenza A (RT-PCR) Positive A (Negative) Influenza B (RT-PCR) Negative (Negative) RSV (RT-PCR) Negative (Negative) SARS-CoV-2 RNA (RT-PCR) Negative (Negative) Imaging Data Attestation: I personally reviewed and interpreted this imaging study as follows: My impression: No acute abnormalities noted on pt's chest x-ray. Discharge Plan Discharge Clinical Impression: Influenza, Upper respiratory infection Patient Disposition: Home, Self-Care Condition: Stable Instructions: Antibiotic Form, Influenza (ED), Upper Respiratory Infection (ED) Additional Instructions: Please return to the ER with an worsening symptoms. Follow-up with primary care provider in the next 2-3 days. Take all medications as prescribed. Patient Language: Danish Prescriptions: New benzonatate 100 mg capsule 100 mg PO TID Qty: 18 0RF ondansetron 4 mg tablet,disintegrating 4 mg PO Q8H Qty: 10 0RF albuterol sulfate [Ventolin HFA] 90 mcg/actuation HFA aerosol inhaler 1 puff inhalation QID PRN (Reason: shortness of breath or wheezing) Qty: 8.5 0RF No Action phentermine 37.5 mg capsule 37.5 mg PO DAILY Qty: 30 1RF Rx Instructions: must administer 30 minutes before or 1-2 hours after breakfast multivitamin Tablet 1 tablet PO DAILY cyclobenzaprine 10 mg tablet 10 mg PO TID PRN (Reason: muscle spasm) Qty: 14 0RF Follow-up/Referrals: Edie,Rosi Clement MD [Primary Care Provider] - Time of Disposition: 01:04
[2024-05-08 01:21] VITALS: BP 133/91; PULSE 99; RESP 16; TEMP 37.2; O2SAT 100
== END 2024-05-08 01:22 | disposition home or self-care (01) ==
PROVIDERS: Emergency Provider Registered Nurse; PCP Family Medicine
DX: J10.1 Influenza due to other identified influenza virus with other respiratory manifestations (principal); Z20.822 Contact with and (suspected) exposure to COVID-19; E66.01 Morbid (severe) obesity due to excess calories; Z68.38 Body mass index [BMI] 38.0-38.9, adult; Z86.2 Personal history of diseases of the blood and blood-forming organs and certain disorders involving the immune mechanism; Z90.710 Acquired absence of both cervix and uterus
CPT/HCPCS: 71046; 87637; 99283; A9270

== ENCOUNTER 2024-07-04 16:12 | Outpatient (CLI) | payer OTHER, SELFPAY ==
--- NOTE | ~2024-07-04 | US_ITS ---
Renal-Bladder ultrasound Clinical History: 3 days Technique: Real-time sonographic imaging of the kidneys and urinary bladder was performed. Findings: The right kidney measures 8.1 cm in length and the left kidney measures 7.9 cm. There is no hydronephrosis or renal calculus identified. Renal cortical echogenicity is increased. No renal mass lesion is identified. The urinary bladder is moderately distended at the time of this exam. No intraluminal echoes are iden tified. No abnormal wall thickening is seen. Prevoid bladder volume is 451 mL. No significant post vo id residual. Impression: Echogenic kidneys are compatible with chronic medical renal disease. Distended urinary bladder initially with no post void residual. Reviewed, dictated and finalized at location . Impression: Echogenic kidneys are compatible with chronic medical renal disease. Distended urinary bladder initially with no post void residual.
--- OUTSIDE RECORDS SUMMARY | 2024-07-04 17:07 | XMS_ITS | Referral Summary ---
Author Organization [facility] Address [address] [place] [address] Care Team Providers Care Electromyographic Technician Name Role Phone Rosi Irizarry MD [...] Plan of Treatment Not on file Insurance [facility] Care Teams Electromyographic Technician Relationship Specialty Start Date End Date Rosi Irizarry MD [address] [place] [phone] PCP - General Family Medicine 09/02/21
--- OUTSIDE RECORDS SUMMARY | 2024-07-04 17:07 | XMS_ITS | Clinical Summary ---
Author Organization [facility] Address [address] [place] [address] Care Team Providers Care Pigment Pumper Name Role Phone Rosi Irizarry MD Primary [...] patient's age to complete this topic Insurance [facility] Care Teams Pigment Pumper Relationship Specialty Start Date End Date Rosi Irizarry MD [address] [place] [address] [address] LARKIN [address] [place] [phone] PCP - General Family Medicine 09/02/21
--- OUTSIDE RECORDS SUMMARY | 2024-07-04 17:07 | XMS_ITS | Clinical Summary ---
Author Organization [facility] Facility Address [address] [place] [address] Care Team Providers Care Care Management Coordinator Name Role Phone Unavailable Primary Care Provider Unavailabl e Allergies No known active allergies Medications lisinopril 5 MG tablet Take 1 tablet (5 mg total) by mouth 1 (one) time each day 90 tablet 5 06/13/19 26 Active Cholecalciferol (Vitamin D3) 50 MCG (1999) tablet Take 1 tablet by mouth 1 (one) time each day 90 tablet 1 5 06/13/19 26 Active rosuvastatin (Crestor) 10 MG tablet Take 1 tablet (10 mg total) by mouth 1 (one) time each day 90 tablet 5 06/14/19 26 Active baclofen (LIORESAL) 10 MG tablet Take 1 tablet 3 times a day by oral route as needed. 06/13/19 25 Discontinu ed(Med List Maintenanc e) busPIRone (BUSPAR) 5 MG tablet Take 1 tablet twice a day by oral route. 4 06/13/19 25 Discontinu ed(Med List Maintenanc e) Cholecalciferol 50 MCG (1999 UT) capsule Take 1 capsule every day by oral route for 90 days. 4 06/13/19 25 Discontinu ed(Med List Maintenanc e) cyclobenzaprine (FLEXERIL) 5 MG tablet Take 1 tablet 3 times a day by oral route as needed. 06/13/19 25 Discontinu ed(Med List Maintenanc e) hydroCHLOROthia zide 25 MG tablet Take 1 tablet every day by oral route. 5 06/13/19 25 Discontinu ed(Med List Maintenanc e) lisinopril 10 MG tablet Take 1 tablet every day by oral route. 4 06/13/19 25 Discontinu ed(Med List Maintenanc e) minocycline (DYNACIN) 100 MG tablet 1 po bid 06/13/19 25 Discontinu ed(Med List Maintenanc e) predniSONE (DELTASONE) 20 MG tablet 2 po qday x 5 days 06/13/19 25 Discontinu ed(Med List Maintenanc e) SUMAtriptan (IMITREX) 100 MG tablet 1/2 to 1 tab at onset of headache. Do not exceed 1 tab in 24 hours 06/13/19 25 Discontinu ed(Med List Maintenanc e) Active Problems Problem Noted Date Diagnosed Date Chronic kidney disease stage 3B 06/12/2024 Obese class II 06/12/2024 Acne 06/12/2024 Hyperglycemia 06/11/2024 Hyperlipidemia 06/11/2024 Steatosis of liver 06/11/2024 Essential hypertension 04/04/2024 Creatine kinase level above reference range 02/25 Increased liver function 12/07/2022 Prediabetes 07/22/2021 Vitamin D deficiency 09/26/2017 Iron deficiency anemia 07/18/2016 Encounters Date Type Department Care Team Description 06/13/2024 Refill [facility] [address] [phone] Judy Ramirez CMA 06/12/2024 11:15 AM CDT Office Visit [facility] [address] [phone] Jacinto Krishnamurthy MD Chronic kidney disease stage 3B (HCC) (Primary Dx); Prediabetes; Essential hypertension; Hyperlipidemia, not otherwise specified; Steatosis of liver; Obese class II; Acne vulgaris; Vitamin D deficiency, not otherwise specified 06/12/2024 Orders Only [facility] [address] [phone] Jacinto Krishnamurthy MD 06/12/2024 Documentation Only [facility] [address] [phone] Jacinto Krishnamurthy MD 06/12/2024 Documentation Only [facility], [address] [phone] Jacinto Krishnamurthy MD 06/08/2024 Documentation Only [facility], [address] [phone] Jacinto Krishnamurthy MD from Last 3 Months Family History Medical History Relation Comments Cancer Maternal Grandmother Diabetes Mother Relation Status Comments Father Alive Maternal Grandmother Mother Alive Social History Tobacco Use Types Packs/Day Years Used Date Smoking Tobacco: Never Smokeless Tobacco: Never Alcohol Use Standard Drinks/Week Comments Not Currently 0 (1 standard drink = 0.6 oz pur e alcohol) Comments Unknown Sex and Gender Information Value Date Recorded Sex Assigned at Not on file Legal Sex Female 1:15 PM EST Gender Identity Not on file Sexual Orientation Not on file Last Filed Vital Signs Vital Sign Reading Time Taken Comments Blood Pressure 144/82 06/12/2024 11:27 AM CDT Pulse 81 06/12/2024 11:27 AM CDT Temperature - - Respiratory Rate 20 06/12/2024 11:27 AM CDT Oxygen Saturation 98% 06/12/2024 11:27 AM CDT Inhaled Oxygen Concentration - - Weight 103 kg (227 lb) 06/12/2024 11:27 AM CDT Height 162.6 cm (5' 4 ) 06/12/2024 11:27 AM CDT Body Mass Index 38.96 06/12/2024 11:27 AM CDT Plan of Treatment Upcoming Encounters Date Type Department Care Team (Late st Contact Info) Description 07/31/2024 10:15 AM CDT Office Visit [facility], [facility] [address] [phone] Jacinto Krishnamurthy MD [address] [place] [phone] Health Maintenance Due Date Last Done Comments Pneumococcal Vaccine: Pediat rics (0 to 5 Years) and At-Risk Patients (6 to 64 Years) (1 of 2 - PCV) 1992 Hepatitis B Vaccine (2 of 3 - 3-dose series) 06/27/1998 05/30/1998 Influenza Vaccine (Season Ended) 2024 12/08/19, 12/21/2017 Procedures Procedure Name Priority Date/Time Associated Diagnosis Comments HEMOGLOBIN A1C Routine 06/12/2024 12:52 PM CDT PROTEIN / CREATININE RATIO, URINE Routine 06/12/2024 12:52 PM CDT VITAMIN D 25 HYDROXY Routine 06/12/2024 12:52 PM CDT CBC AND DIFFERENTIAL Routine 06/12/2024 12:52 PM CDT URINALYSIS WITH MICROSCOPIC Routine 06/12/2024 12:52 PM CDT PHOSPHATE ( PHOSPHORUS) Routine 06/12/2024 12:52 PM CDT COMPREHENSIVE METABOLIC PANEL Routine 06/12/2024 12:52 PM CDT LIPID PANEL Routine 06/12/2024 12:52 PM CDT PTH, INTACT AND CALCIUM Routine 06/12/2024 12:52 PM CDT from Last 3 Months Results * (ABNORMAL) PTH, Intact and Calcium (06/12/2024 12:52 PM CDT) Parathyroid Hormone, Intact 209(H) 16 - 77 pg/mL See order comments Comment: Interpretive Guide Intact PTH Calcium ------- Normal Parathyroid Normal Normal Hypoparathyroidism Low or Low Normal Low Hyperparathyroidism Primary Normal or High High Secondary High Normal or Low Tertiary High High Non-Parathyroid Hypercalcemia Low or Low Normal High Calcium 8.5(L) 8.6 - 10.2 mg/dL See order comments 06/12/2024 12:5 2 PM CDT 06/12/2024 12:56 PM CDT Narrative [facility] - 06/13/2024 10:17 AM CDT FASTING:NO FASTING: NO Resulting Agency Comment Performing Organization Information: Site ID: [id number] Name: [facility] Address: [address] [address] Director: Bertha Styles MD Jacinto Krishnamurthy MD LAB BLOOD ORDERABLES Final R esult [facility] See order comments [place] [address] * (ABNORMAL) Protein, Total, Random Urine w/Creatinine (Protein/Creat Ratio) (06/12/2024 12:52 PM CDT) Creatinine, Ur 46 20 - 275 mg/dL See order comments Urine Protein/Creati nine Ratio 2,174(H) 24 - 184 mg/g creat See order comments Protein/Creati nine Ratio, Urine 2.174(H) 0.024 - 0.184 mg/mg creat See order comments Protein Urine Random 100(H) 5 - 24 mg/dL See order comments 06/12/2024 12:5 2 PM CDT 06/12/2024 12:56 PM CDT Narrative [facility] - 06/13/2024 10:17 AM CDT FASTING:NO FASTING: NO Resulting Agency Comment Performing Organization Information: Site ID: Name: [facility] Address: [address] [address] Director: Bertha Styles Jacinto Krishnamurthy MD LAB URINE ORDERABLES Final R esult [facility] See order comments [place] [address] * (ABNORMAL) Vitamin D 25 Hydroxy (06/12/2024 12:52 PM CDT) Vitamin D, 25-OH, Total, IA 18(L) 30 - 100 ng/mL See order comments Comment: Vitamin D Status 25-OH Vitamin D: Deficiency: <20 ng/mL Insufficiency: 20 - 29 ng/mL Optimal: > or = 30 ng/mL For 25-OH Vitamin D testing on patients on D2-supplementation and patients for whom quantitation of D2 and D3 fractions is required, the QuestAssureD(TM) 25-OH VIT D, (D2,D3), LC/MS/MS is recommended: order code 56310 (patients >2yrs). See Note 1 Note 1 For additional information, please refer to http://education.Relcy/faq/ZIR630 (This link is being provided for informational/ educational purposes only.) 06/12/2024 12:5 2 PM CDT 06/12/2024 12:56 PM CDT Narrative [facility] - 06/13/2024 10:17 AM CDT FASTING:NO FASTING: NO Resulting Agency Comment Performing Organization Information: Site ID: [id number] Name: [facility] Address: [address] [place] [address] [place] [address] Director: Bertha Styles MD us Jacinto Krishnamurthy MD LAB BLOOD ORDERABLES Final R esult [facility] See order comments [place] [address] * (ABNORMAL) Urinalysis with microscopic (06/12/2024 12:52 PM CDT) Color, Urine YELLOW YELLOW See ord er comments Appearance Urine CLEAR CLEAR See order comments Specific [place], UA 1.009 1.001 - 1.035 See order comments pH Urine 6.0 5.0 - 8.0 See order comments Glucose, Ur NEGATIVE NEGATIVE See orde r comments Bilirubin, Urine NEGATIVE NEGATIVE See order comments Ketones, Urine NEGATIVE NEGATIVE See o rder comments Hemoglobin Ur Ql Strip NEGATIVE NEGATIVE See order comments Protein, Ur 2+(A) NEGATIVE See orde r comments Nitrite, Urine NEGATIVE NEGATIVE See o rder comments WBC Esterase Urine NEGATIVE NEGATIVE See order comments WBC, Urine NONE SEEN < OR = 5 /HPF See order comments RBC, Urine NONE SEEN < OR = 2 /HPF See order comments Epithelial Cells in Urine NONE SEEN < OR = 5 /HPF See order comments Trans Epithelial, Urine CANCELED < OR = 5 /HPF See order comments Comment:Result canceled by t he ancillary. Renal Epithelial Cells, Urine CANCELED < OR = 3 /HPF See order comments Comment:Result canceled by t he ancillary. Bacteria NONE SEEN NONE SEEN /HPF See order comments Calcium Oxalate Crystals, Urine CANCELED NONE OR FEW /HPF See order comments Comment:Result canceled by t he ancillary. Triple Phosphate Crystals, Urine CANCELED NONE OR FEW /HPF See order comments Comment:Result canceled by t he ancillary. Uric Acid Crystals, Urine CANCELED NONE OR FEW /HPF See order comments Comment:Result canceled by t he ancillary. Amorphous Sediments CANCELED NONE OR FEW /HPF See order comments Comment:Result canceled by t he ancillary. Crystals CANCELED NONE SEEN /HPF See order comments Comment:Result canceled by t he ancillary. Hyaline Casts, Urine NONE SEEN NONE SEEN /LPF See order comments Granular Casts, Urine CANCELED NONE SEEN /LPF See order comments Comment:Result canceled by t he ancillary. Casts CANCELED NONE SEEN /LPF See order comments Comment:Result canceled by t he ancillary. Yeast, UA CANCELED NONE SEEN /HPF See order comments Comment:Result canceled by t he ancillary. Note: See order comments Comment: This urine was analyzed for the presence of WBC, RBC, bacteria, casts, and other formed elements. Only those elements seen were reported. 06/12/2024 12:5 2 PM CDT 06/12/2024 12:56 PM CDT Narrative [facility] - 06/13/2024 10:17 AM CDT FASTING:NO FASTING: NO Resulting Agency Comment Performing Organization Information: Site ID: [id number] Name: [facility] Address: [address] [place] [address] Director: Bertha Styles us Jacinto Krishnamurthy MD LAB URINE ORDERABLES Final R esult [facility] See order comments [place] [address] * (ABNORMAL) CBC and Differential (06/12/2024 12:52 PM CDT) WBC 6.9 3.8 - 10.8 Thousand/ uL See order comments RBC 4.32 3.80 - 5.10 Million/u L See order comments Hemoglobin 12.1 11.7 - 15.5 g/dL See order comments Hematocrit 37.9 35.0 - 45.0 % See order comments MCV 87.7 80.0 - 100.0 fL See order comments MCH 28.0 27.0 - 33.0 pg See order comments MCHC 31.9(L) 32.0 - 36.0 g/dL See order comments Comment: For adults, a slight decrease in the calculated MCHC value (in the range of 30 to 32 g/dL) is most likely not clinically significant; however, it should be interpreted with caution in correlation with other red cell parameters and the patient's clinical condition. RDW 14.9 11.0 - 15.0 % See order comments Platelets 264 140 - 400 Thousand/ uL See order comments MPV 10.9 7.5 - 12.5 fL See order comments Neutrophils Absolute 4,271 1,500 - 7,800 cells/uL See order comments Band Neutrophils Absolute, Manual Count CANCELED 0 - 750 cells/uL See order comments Comment:Result canceled by t he ancillary. Metamyelocytes Absolute CANCELED 0 cells/uL See order comments Comment:Result canceled by t he ancillary. Absolute Myelocytes CANCELED 0 cells/uL See order comments Comment:Result canceled by t he ancillary. Absolute Promyelocytes CANCELED 0 cells/uL See order comments Comment:Result canceled by t he ancillary. Lymphocytes Absolute 2,111 850 - 3,900 cells/uL See order comments Monocytes Absolute 407 200 - 950 cells/uL See order comments Eosinophils Absolute 69 15 - 500 cells/uL See order comments Basophils Absolute 41 0 - 200 cells/uL See order comments Blasts Absolute CANCELED 0 cells/uL See order comments Comment:Result canceled by t he ancillary. NRBC Absolute CANCELED 0 cells/uL See order comments Comment:Result canceled by t he ancillary. Neutrophils Relative 61.9 % See order comments Bands Absolute CANCELED % See o rder comments Comment:Result canceled by t he ancillary. Metamyelocytes Percent CANCELED % See order comments Comment:Result canceled by t he ancillary. Myelocytes Relative CANCELED % See order comments Comment:Result canceled by t he ancillary. Promyelocytes Relative CANCELED % See order comments Comment:Result canceled by t he ancillary. Lymphocytes 30.6 % See orde r comments Variant lymphocytes/100 WBC (Bld) CANCELED 0 - 10 % See order comments Comment:Result canceled by t he ancillary. Monocytes 5.9 % See order comments Eosinophils 1.0 % See orde r comments Basophils Relative 0.6 % S ee order comments Blasts CANCELED % See order comments Comment:Result canceled by t he ancillary. nRBC CANCELED 0 /100 WBC See order comments Comment:Result canceled by t he ancillary. Comment(s) CANCELED See order comments Comment:Result canceled by t he ancillary. 06/12/2024 12:5 2 PM CDT 06/12/2024 12:56 PM CDT Narrative [facility] - 06/13/2024 10:17 AM CDT FASTING:NO FASTING: NO Resulting Agency Comment Performing Organization Information: Site ID: Name: [facility] Address: [address] [place] [address] Director: Bertha Styles Jacinto Krishnamurthy MD LAB BLOOD ORDERABLES Final R esult [facility] See order comments [place] [address] * Phosphorus (06/12/2024 12:52 PM CDT) Phosphorus 3.8 2.5 - 4.5 mg/dL See order comments 06/12/2024 12:5 2 PM CDT 06/12/2024 12:56 PM CDT Narrative [facility] - 06/13/2024 10:17 AM CDT FASTING:NO FASTING: NO Resulting Agency Comment Performing Organization Information: Site ID: Name: [facility] Address: [address] [address] Director: Bertha Styles us Jacinto Krishnamurthy MD LAB BLOOD ORDERABLES Final R esult [facility] See order comments [place] [address] * Hemoglobin A1c (06/12/2024 12:52 PM CDT) Hemoglobin A1C 5.2 <5.7 % of total Hgb See order comments Comment: For the purpose of screening for the presence of diabetes: <5.7% Consistent with the absence of diabetes 5.7-6.4% Consistent with increased risk for diabetes (prediabetes) > or =6.5% Consistent with diabetes This assay result is consistent with a decreased risk of diabetes. Currently, no consensus exists regarding use of hemoglobin A1c for diagnosis of diabetes in children. According to [place] Diabetes Association (ADA) guidelines, hemoglobin A1c <7.0% represents optimal control in non- diabetic patients. Different metrics may apply to specific patient populations. Standards of Medical Care in Diabetes(ADA). 06/12/2024 12:5 2 PM CDT 06/12/2024 12:56 PM CDT Narrative [facility] - 06/13/2024 10:17 AM CDT FASTING:NO FASTING: NO Resulting Agency Comment Performing Organization Information: Site ID: Name: [facility] Address: [facility] [place] [address] Director: Bertha Styles us Jacinto Krishnamurthy MD LAB BLOOD ORDERABLES Final R esult [facility] See order comments [place] [address] * (ABNORMAL) Lipid panel (06/12/2024 12:52 PM CDT) Cholesterol 204(H) <200 mg/dL See ord er comments HDL 37(L) > OR = 50 mg/dL See order comments Triglycerides 254(H) <150 mg/dL See o rder comments Comment: If a non-fasting specimen was collected, consider repeat triglyceride testing on a fasting specimen if clinically indicated. Claudia et al. J. of Clin. Lipidol. 2015;9:129-169. LDL Direct 128(H) mg/dL (calc) See order comments Comment: Reference range: <100 Desirable range <100 mg/dL for primary prevention; <70 mg/dL for patients with CHD or diabetic patients with > or = 2 CHD risk factors. LDL-C is now calculated using the Eddie calculation, which is a validated novel method providing better accuracy than the Friedewald equation in the estimation of LDL-C. Colton POZO et al. DOUG. 2013;310(19): 5522-1209 (http://education.Relcy/faq/ZXV837) Chol/HDL Ratio 5.5(H) <5.0 (calc) See order comments Non HDL Cholesterol 167(H) <130 mg/dL (calc) See order comments Comment: For patients with diabetes plus 1 major ASCVD risk factor, treating to a non-HDL-C goal of <100 mg/dL (LDL-C of <70 mg/dL) is considered a therapeutic option. 06/12/2024 12:5 2 PM CDT 06/12/2024 12:56 PM CDT Narrative [facility] - 06/13/2024 10:17 AM CDT FASTING:NO FASTING: NO Resulting Agency Comment Performing Organization Information: Site ID: [id number] Name: [facility] Address: [facility] [place] [address] Director: Bertha Styles us Jacinto Krishnamurthy MD LAB BLOOD ORDERABLES Final R esult [facility] See order comments [place] [address] * (ABNORMAL) Comprehensive Metabolic Panel (06/12/2024 12:52 PM CDT) Pathologist [facility] Glucose 81 65 - 139 mg/dL See order comments Comment: Non-fasting reference interval BUN 35(H) 7 - 25 mg/dL See order comments Creatinine 2.14(H) 0.50 - 0.97 mg/dL See order comments eGFR CKD-EPI CR 2020 30(L) > OR = 60 mL/min/1.7 3m2 See order comments BUN/Creatinine Ratio 16 6 - 22 (calc) See order comments Sodium 138 135 - 146 mmol/L See order comments Potassium 4.8 3.5 - 5.3 mmol/L See order comments Chloride 109 98 - 110 mmol/L See order comments Bicarbonate (CO2) 22 20 - 32 mmol/L See order comments Calcium 8.5(L) 8.6 - 10.2 mg/dL See order comments Total Protein 7.3 6.1 - 8.1 g/dL See order comments Albumin 3.9 3.6 - 5.1 g/dL See order comments Globulin, Total 3.4 1.9 - 3.7 g/dL (calc) See order comments A/G Ratio 1.1 1.0 - 2.5 (calc) See order comments Total Bilirubin 0.3 0.2 - 1.2 mg/dL See order comments Alkaline Phosphatase 69 31 - 125 U/L See order comments AST (SGOT) 16 10 - 30 U/L See order comments ALT (SGPT) 11 6 - 29 U/L See orde r comments 06/12/2024 12:5 2 PM CDT 06/12/2024 12:56 PM CDT Narrative [facility] - 06/13/2024 10:17 AM CDT FASTING:NO FASTING: NO Resulting Agency Comment Performing Organization Information: Site ID: [id number] Name: [facility] Address: [address] [place], [place] [address] [address] Director: Bertha Styles MD us Jacinto Krishnamurthy MD LAB BLOOD ORDERABLES Final R esult [facility] See order comments [place] [address] from Last 3 Months Insurance [facility] [employer] HMO ([id number])
== END 2024-07-04 16:13 | disposition home or self-care (01) ==
PROVIDERS: PCP Internal Medicine Nephrology; Visit Provider Internal Medicine Nephrology
DX: R73.03 Prediabetes (principal); K76.0 Fatty (change of) liver, not elsewhere classified; E66.9 Obesity, unspecified; L70.0 Acne vulgaris; E55.9 Vitamin D deficiency, unspecified; E78.5 Hyperlipidemia, unspecified; I12.9 Hypertensive chronic kidney disease with stage 1 through stage 4 chronic kidney disease, or unspecified chronic kidney disease; N18.32 Chronic kidney disease, stage 3b
CPT/HCPCS: 76775

== ENCOUNTER 2024-08-29 07:45 | Outpatient (CLI) | payer MEDICAID, SELFPAY ==
--- OUTSIDE RECORDS SUMMARY | 2024-08-29 07:53 | XMS_ITS | Clinical Summary ---
Author Organization [facility] Facility Address [address] [place] [address] Care Team Providers Care Support Services Rep Name Role Phone Unavailable Primary Care Provider Unavailabl e Allergies No known active allergies Medications Cholecalciferol (Vitamin D3) 50 MCG (1999) tablet Take 1 tablet by mouth 1 (one) time each day 90 tablet 1 5 06/13/19 26 Active rosuvastatin (Crestor) 10 MG tablet Take 1 tablet (10 mg total) by mouth 1 (one) time each day 90 tablet 5 06/14/19 26 Active lisinopril 10 MG tablet Take 1 tablet (10 mg total) by mouth every morning 90 tablet 1 5 Active chlorthalidone 25 MG tablet Take 1 tablet (25 mg total) by mouth 1 (one) time each day in the morning 90 tablet 1 5 Active lisinopril 5 MG tablet Take 1 tablet (5 mg total) by mouth 1 (one) time each day 90 tablet 5 08/01/19 25 Discontinu ed(Reorder (does not appear on AVS)) chlorthalidone 25 MG tablet Take 25 mg by mouth 1 (one) time each day in the morning 08/01/19 25 Discontinu ed(Reorder (does not appear on AVS)) Active Problems Problem Noted Date Diagnosed Date Proteinuria 07/31/2024 Chronic kidney disease stage 3B 06/12/2024 Obese class II 06/12/2024 Acne 06/12/2024 Hyperglycemia 06/11/2024 Hyperlipidemia 06/11/2024 Steatotic liver disease 06/11/2024 Essential hypertension 04/04/2024 Increased liver function 12/07/2022 Prediabetes 07/22/2021 Vitamin D deficiency 09/26/2017 Iron deficiency anemia 07/18/2016 Resolved Problems Problem Noted Date Diagnosed Date Resolved Date Creatine kinase level above reference range 03/14/2024 07/31/2024 Encounters Date Type Department Care Team Description 08/23/2024 Documentation Only [facility], [address] [phone] Jacinto Krishnamurthy MD 07/31/2024 10:00 AM CDT Office Visit [facility], [facility] [address] [address] Jacinto Krishnamurthy MD Chronic kidney disease stage 3B (HCC) (Primary Dx); Essential hypertension; Mixed hyperlipidemia; Prediabetes; Proteinuria, not otherwise specified; Obese class II; Steatotic liver disease; Vitamin D deficiency, not otherwise specified 07/31/2024 Refill [facility], [facility] [address] [address] [place] 07/25/2024 Documentation Only [facility], [address] [phone] Jacinto Krishnamurthy MD 07/05/2024 Documentation Only [facility], [address] [phone] Jacinto Krishnamurthy MD 06/13/2024 Refill [facility], [address] [phone] Judy Ramirez, [employer] 06/12/2024 11:15 AM CDT Office Visit [facility] [address] [address] Jacinto Krishnamurthy MD Chronic kidney disease stage 3B (HCC) (Primary Dx); Prediabetes; Essential hypertension; Hyperlipidemia, not otherwise specified; Steatosis of liver; Obese class II; Acne vulgaris; Vitamin D deficiency, not otherwise specified 06/12/2024 Orders Only [facility], [address] [facility] [place] [phone] Jacinto Krishnamurthy MD 06/12/2024 Documentation Only [facility], [facility] [address] [address] Jacinto Krishnamurthy MD 06/12/2024 Documentation Only [facility], [address] [place] [address] Jacinto Krishnamurthy MD 06/08/2024 Documentation Only [facility], [address] [place] [address] Jacinto Krishnamurthy MD from Last 3 [...] Sign Reading Time Taken Comments Blood Pressure 160/100 07/31/2024 11:20 AM CDT Pulse 67 07/31/2024 11:20 AM CDT Temperature 36.7 C (98 F) 07/31/2024 11:20 AM CDT Respiratory Rate 18 07/31/2024 11:20 AM CDT Oxygen Saturation 99% 07/31/2024 11:20 AM CDT Inhaled Oxygen Concentration - - Weight 106 kg (234 lb) 07/31/2024 11:20 AM CDT Height 162.6 cm (5' 4) 06/12/2024 11:27 AM CDT Body Mass Index 40.17 06/12/2024 11:27 AM CDT Plan of Treatment Upcoming Encounters Date Type Department Care Team (Late st Contact Info) Description 09/04/2024 10:30 AM CDT Office Visit [facility], [facility] [address] [phone] Jacinto Krishnamurthy MD [address] [place] [address] 09/12/2024 Orders Only [facility], [facility] [address] [facility] [address] [place] [address] Jacinto Krishnamurthy MD [address] [place] [address] Chronic kidney disease stage 3B (HCC); Prediabetes; Essential hypertension; Hyperlipidemia, not otherwise specified; Steatotic liver disease; Obese class II; Acne vulgaris; Vitamin D deficiency, not otherwise specified Health Maintenance Due Date Last Done Comments Hepatitis B Vaccine (2 of 3 - 3-dose series) 06/27/1998 05/30/1998 Pneumococcal Vaccine: Peds ( 0 to 5 Years) and At-Risk Patients (6 to 49 Years) (1 of 2 - PCV) 2005 Influenza Vaccine (Season Ended) 2024 12/08/19, 12/21/2017 Procedures Procedure Name Priority Date/Time Associated Diagnosis Comments EXT RESULT ENTRY Routine 07/24/2024 HEMOGLOBIN A1C Routine 06/12/2024 12:52 PM CDT [...] from Last 3 Months Results * (ABNORMAL) EXT RESULT ENTRY (07/24/2024) WBC 6.7 3.3 - 10.0 10*3/ML Red Blood Cell Count 4.08 Hemoglobin 11.7(A) 12.0 - 16.0 Hematocrit 35.9(A) 36.0 - 46.0 Platelets 199 150 - 399 10*3/UL MCV 88.0 82.0 - 108.0 Sodium 141 137 - 147 Potassium 5.5 3.4 - 5.5 Chloride 112.0(A) 99.0 - 108.0 Carbon Dioxide 22 mmol/L Glucose 83 60 - 200 BUN 29(A) 4 - 21 mg/dL Creatinine 1.95(A) 0.50 - 1.10 mg/dL Total Protein 7.4 6.4 - 8.2 G/DL BUN/Creatinine Ratio 15 Albumin 4.1 3.5 - 5.0 g/dL Calcium 8.6(A) 8.7 - 10.7 mg/dL Phosphorus, Serum 3.5 eGFR Non-Afr Mongolian 33(L) PTH 176(H) PG/ML Vitamin D, 25-OH, Total 21(L) ng/mL Hemoglobin A1C 5.3 4.0 - 6.0 Protein Urine Random 82(H) Creatinine, Urine Random 59 mg/dL Urine Protein/Creatini ne Ratio 1,390(H) mg/g creat Glucose, UA Negative mg/dL Bilirubin, UA Negative Ketones, UA Negative Urine Specific Holland 1.011 Blood, UA Negative Faustino/ul pH, UA 6.5 Protein, UA 2+ mg/dL Urobilinogen, UA Normal Nitrite, UA Negative Leukocytes, UA Negative WBC, Urine None Seen None Seen, Occasional, 0-2 /HPF RBC, Urine None Seen None Seen, Occasional, 1-5 /HPF Epithelial Cells in Urine None Seen /HPF Bacteria, Urine None Seen None Seen, Occasional /HPF Triglycerides 157(H) Cholesterol, Total 175 HDL 36(L) mg/dL LDL-Calculated 112(H) Chol/HDL Ratio (External Entry) 4.9 Non HDL Cholesterol 139(H) 07/24/2024 Historical Provider LAB BLOOD ORDERABLES Gina l Result * (ABNORMAL) PTH, Intact and Calcium (06/12/2024 [...] PM CDT 06/12/2024 12:56 PM CDT Narrative [facility] - 06/13/2024 10:17 AM CDT FASTING:NO FASTING: NO Resulting Agency Comment Performing Organization Information: Site ID: [place] Name: [facility] Address: [address] [place] [address] Director: Bertha Styles MD Jacinto Krishnamurthy MD LAB BLOOD ORDERABLES Final R esult [facility] See order comments [place] [address] * (ABNORMAL) Protein, Total, Random Urine w/Creatinine [...] Performing Organization Information: Site ID: [place] Name: [facility] Address: [address] [address] Director: Bertha Styles us Jacinto Krishnamurthy MD LAB URINE ORDERABLES Final R esult Performing Organization Address City/[facility]/ZIP Co de Phone Number [facility] See order comments [place] [address] * (ABNORMAL) Vitamin D 25 Hydroxy (06/12/2024 [...] D, (D2,D3), LC/MS/MS is recommended: order code 25786 (patients >2yrs). See Note 1 Note 1 For additional information, please refer to http://education.BeTheBeast.[employer]/faq/TQC275 (This link is being provided for informational/ educational purposes only.) 06/12/2024 12:5 2 PM CDT 06/12/2024 12:56 PM CDT Narrative [facility] - 06/13/2024 10:17 AM CDT FASTING:NO FASTING: NO Resulting Agency Comment Performing Organization Information: Site ID: [place] Name: [facility] Address: [address] [address] Director: Bertha Styles MD Jacinto Krishnamurthy MD LAB BLOOD ORDERABLES Final R esult [facility] See order comments [place] [address] * (ABNORMAL) Urinalysis with microscopic (06/12/2024 12:52 PM CDT) Color, Urine YELLOW YELLOW See ord er comments Appearance Urine CLEAR CLEAR See order comments Specific Holland, UA 1.009 1.001 - 1.035 See order [...] PM CDT 06/12/2024 12:56 PM CDT Narrative [facility] - 06/13/2024 10:17 AM CDT FASTING:NO FASTING: NO Resulting Agency Comment Performing Organization Information: Site ID: Name: [facility] Address: [address] [place] [address] Director: Bertha Styles us Jacinto Krishnamurthy MD LAB URINE ORDERABLES Final R esult [facility] See order comments [place] [address] * (ABNORMAL) CBC and Differential (06/12/2024 12:52 [...] cells/uL See order comments Comment:Result canceled by deric waller ancillary. Metamyelocytes Absolute CANCELED 0 cells/uL See [...] Comment Performing Organization Information: Site ID: Name: [facility] Address: [facility] [place] [address] Director: Bertha Styles us Jacinto Krishnamurthy MD LAB BLOOD ORDERABLES Final R esult [facility] See order comments [place] [address] * Phosphorus (06/12/2024 12:52 PM CDT) Phosphorus 3.8 2.5 - 4.5 mg/dL See order comments 06/12/2024 12:5 2 PM CDT 06/12/2024 12:56 PM CDT Narrative [facility] - 06/13/2024 10:17 AM CDT FASTING:NO FASTING: NO Resulting Agency Comment Performing Organization Information: Site ID: [place] Name: [facility] Address: [address] [address] Director: Bertha Styles Jacinto Krishnamurthy MD LAB BLOOD ORDERABLES Final R esult Performing Organization Address [facility] de Phone Number [facility] See order comments [place] [address] * Hemoglobin A1c (06/12/2024 12:52 PM CDT) [...] diagnosis of diabetes in children. According to [place] Diabetes Association (ADA) guidelines, hemoglobin A1c <7.0% represents optimal control in non- diabetic patients. Different metrics may apply to specific patient populations. Standards of Medical Care in Diabetes(ADA). 06/12/2024 12:5 2 PM CDT 06/12/2024 12:56 PM CDT Narrative [facility] - 06/13/2024 10:17 AM CDT FASTING:NO FASTING: NO Resulting Agency Comment Performing Organization Information: Site ID: [place] Name: [facility] Address: [address] [address] Director: Bertha Styles us Jacinto Krishnamurthy MD LAB BLOOD ORDERABLES Final R esult [facility] See order comments [place] [address] * (ABNORMAL) Lipid panel (06/12/2024 12:52 PM [...] factors. LDL-C is now calculated using the Colton-Johnson calculation, which is a validated novel method providing better accuracy than the Friedewald equation in the estimation of LDL-C. Colton SS et al. DOUG. 2013;310(19): 2177-9420 (http://education.Entellium/faq/YCD303) Chol/HDL Ratio 5.5(H) <5.0 (calc) See order comments Non HDL Cholesterol 167(H) <130 mg/dL (calc) See order comments Comment: For patients with diabetes plus 1 major ASCVD risk factor, treating to a non-HDL-C goal of <100 mg/dL (LDL-C of <70 mg/dL) is considered a therapeutic option. 06/12/2024 12:5 2 PM CDT 06/12/2024 12:56 PM CDT Narrative [facility] - 06/13/2024 10:17 AM CDT FASTING:NO FASTING: NO Resulting Agency Comment Performing Organization Information: Site ID: [place] Name: [facility] Address: [address] [address] Director: Bertha Styles us Jacinto Krishnamurthy MD LAB BLOOD ORDERABLES Final R esult [facility] See order comments [place] [address] * (ABNORMAL) Comprehensive Metabolic Panel (06/12/2024 12:52 PM CDT) Glucose 81 65 - 139 mg/dL See [...] PM CDT 06/12/2024 12:56 PM CDT Narrative [facility] - 06/13/2024 10:17 AM CDT FASTING:NO FASTING: NO Resulting Agency Comment Performing Organization Information: Site ID: [place] Name: [facility] Address: [address] [address] Director: Bertha Styles MD us Jacinto Krishnamurthy MD LAB BLOOD ORDERABLES Final R esult [facility] See order comments [place] [address] from Last 3 Months Insurance Medicaid [place]
--- OUTSIDE RECORDS SUMMARY | 2024-08-29 07:53 | XMS_ITS | Data Portability ---
Author Organization [place] [facility], Main Office Address [address] [place] [address] Assessment No assessment recorded. Plan of Treatment Reminders Order Date Submit Date Provider Last Modified By Organization Details Last Modified Time Details Appointments None recorded. Lab CBC w/ auto diff [address] (Lab), [address] [place], [address], 4 11:26:12 CMP, serum or plasma [address] (Lab), [address] [place], [address], 4 11:26:44 vitamin D, 25-hydroxy, total, serum [address] (Lab), [address] [place], [address], 4 10:41:40 TSH, serum or plasma [address] (Lab), [address] [place], [address], 4 10:42:12 CBC [address] (Lab), [address] [place], [address], 4 10:41:50 vitamin B12 + folate, serum or blood [address] (Lab), [address] [place], [address], 4 10:42:02 hepatic function panel, serum 2022 023 WALDO Not available 3 20:20:13 BMP, serum or plasma 2022 023 WALDO Not available 3 20:20:23 Referral None recorded. Procedures None recorded. Surgeries None recorded. Imaging None recorded. Medication Orders lisinopril 10 mg tablet 2023 024 [facility] #65284, [address] [place], [place], [id number], 4 11:14:31 buspirone 5 mg tablet 2023 024 [facility] #19347, [address] [place], [place], [id number], 4 11:14:31 Vitamin D3 50 mcg (2,000 unit) capsule 2023 024 [facility] #99289, [address] [place], [place], [id number], 4 10:31:13 minocycline 100 mg tablet 2023 024 [facility] #02481, [address] [place], [place], [id number], 4 10:31:16 ferrous sulfate 325 mg (65 mg iron) tablet 2023 024 [facility] #39624, [address] [place], [place], [id number], 4 10:31:15 minocycline 100 mg tablet 2023 024 [facility] #61450, [address] [place], [place], [id number], 4 10:12:06 topiramate 25 mg tablet [address] [facility] #88670, [address] [place], [place], [id number], 4 11:00:00 topiramate 25 mg tablet [address] [facility] #56097, [address] [place], [place], [id number], 4 11:00:00 amoxicillin 875 mg tablet [address] [facility] #03175, [address] [place], [place], [id number], 4 10:07:59 terbinafine HCl 250 mg tablet [address] [facility] #13796, [address] [place], [place], [id number], 4 10:09:01 Patient TargetsNo targets recorded. Patient InstructionsNo instructions recorded. Reason for Referral None Reported. Results Created Date Observation Date Name Description Value Unit Range Abnormal Flag Note LastModifiedBy Organization Detail LastModifiedTime 12/08/1912/07/2022 HEPAT IC/LI YELENA PANEL alkaline phosphatase 71 U/L 38-[address] [facility] (Lab) [address] [place], [address], 12/07/2022 20:20:13 12/08/19 23 12/07/2022 HEPAT IC/LI YELENA PANEL alanine aminotransfe rase 30 U/L 0-35 Not Available [facility] (Lab) [address] [place], [address], 12/07/2022 20:20:13 12/08/19 23 12/07/2022 HEPAT IC/LI YELENA PANEL aspartate aminotransfe rase 31 U/L 15-37 Not Available [facility] (Lab) [address] [place], [address], 12/07/2022 20:20:13 12/08/19 23 12/07/2022 HEPAT IC/LI YELENA PANEL bilirubin, total 0.20 mg/dL 0.20-1 .30 Not Available [facility] (Lab) [address] [place], [address], 12/07/2022 20:20:13 12/08/19 23 12/07/2022 HEPAT IC/LI YELENA PANEL bilirubin, conjugated (direct) 0.00 mg/dL 0.00-0 .30 Not Available [facility] (Lab) [address] [place], [address], 12/07/2022 20:20:13 12/08/19 23 12/07/2022 HEPAT IC/LI YELENA PANEL biliurubin,u ncong. (indirect) 0.10 mg/dL 0.00-1 .1 Not Available [facility] (Lab) [address] [place], [address], 12/07/2022 20:20:13 12/08/19 23 12/07/2022 HEPAT IC/LI YELENA PANEL total protein 7.4 g/dL 6.3-8. 2 Not Available [facility] (Lab) [address] [place], [address], 12/07/2022 20:20:13 12/08/19 23 12/07/2022 HEPAT IC/LI YELENA PANEL albumin 4.0 g/dL 3.4-5. 0 Not Available [facility] (Lab) [address] [place], [address], 12/07/2022 20:20:13 12/08/19 23 12/07/2022 HEPAT IC/LI YELENA PANEL globulin 3.4 g/dL 2.6-4. 2 Not Available [facility] (Lab) [address] [place], [address], 12/07/2022 20:20:13 12/08/19 23 12/07/2022 HEPAT IC/LI YELENA PANEL A/G ratio 1.2 ratio 1.0-2. 0 Not Available [facility] (Lab) [address] [place], [address], 12/07/2022 20:20:13 12/08/19 23 12/07/2022 BASIC METAB OLIC PANEL sodium 140 mmol/ L 137-14 5 Not Available [facility] (Lab) [address] [place], [address], 12/07/2022 20:20:23 12/08/19 23 12/07/2022 BASIC METAB OLIC PANEL potassium 4.1 mmol/ L 3.5-5. 1 Not Available [facility] (Lab) [address] [place], [address], 12/07/2022 20:20:23 12/08/19 23 12/07/2022 BASIC METAB OLIC PANEL chloride 107 mmol/ L 98-107 Not Available [facility] (Lab) [address] [place], [address], 12/07/2022 20:20:23 12/08/1912/07/2022 BASIC METAB OLIC PANEL carbon dioxide 24 mmol/ L 22-30 Not Available [facility] (Lab) [address] [place], [address], 12/07/2022 20:20:23 12/08/19 23 12/07/2022 BASIC METAB OLIC PANEL anion gap 13.1 mmol/ L 14-22 low Not Available [facility] (Lab) [address] [place], [address], 12/07/2022 20:20:23 12/08/19 23 12/07/2022 BASIC METAB OLIC PANEL glucose 85 mg/dL 70-99 Not Available [facility] (Lab) [address] [place], [address], 12/07/2022 20:20:23 12/08/1912/07/2022 BASIC METAB OLIC PANEL BUN 19 mg/dL 8-19 Not Available [facility] (Lab) [address] [place], [address], 12/07/2022 20:20:23 12/08/1912/07/2022 BASIC METAB OLIC PANEL creatinine 1.68 mg/dL 0.66-1 .25 high Not Available [facility] (Lab) [address] [place], [address], 12/07/2022 20:20:23 12/08/1912/07/2022 BASIC METAB OLIC PANEL GFR 34 Refer ence Range : [place] ge GFR Healt hy Adult : >60 [...] or ethni c subgr oups, such as Hisny nics. Outsi de the valid ated christi [...] of age, a pedia tric GFR calcu lataugusto is avail able on the [facility] websi te: https ://taylor w.gen ramírez.o rg/pr tiffany ional s/kdo qi/gf r_cal culat or Not Available [facility] (Lab) [address] [place], [address], 12/07/2022 20:20:23 12/08/19 23 12/07/2022 BASIC METAB OLIC PANEL calcium 9.0 mg/dL 8.4-10 .2 Not Available [facility] (Lab) [address] [place], [address], 12/07/2022 20:20:23 08/09/19 24 08/09/2023 CT, brain , w/o contr ast No observ ation record ed. [email or web address] [address] [facility], [place], [address], 08/13/2023 19:28:05 04/23/19 25 04/23/2024 imagi ng/di agnos tic resul t No observ ation record ed. [address], [place], [address], 04/23/2024 08:41:25 05/08/19 25 05/08/2024 imagi ng/di agnos tic resul t No observ ation record ed. [address] [address], [place], [address], 05/08/2024 07:15:39 Result Notes None recorded. 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 Active Aspen Mabry APRN [address] [facility] [address], [place], [address] , [place] [facility] [employer] 4 16:40:40 Vitamin D deficiency 26983890 Active 2017 Aspen Mabry APRN [address], [place], [address] , [place] [facility] [facility] 4 16:40:28 Obesity 185697344 Active Aspen Mabry APRN [address], [place], [address] , [place] [facility] [employer] 4 16:40:23 Onychomycosis 786706926 Active Not Available [facility] 3 02:39:45 Hyperlipidemi a 15074409 Active Aspen Mabry APRN [address], [place], [address] , [place] [facility] [employer] 4 16:40:07 Prediabetes 173580356 Active 2021 Aspen Mabry APRN [address], [place], [address] , [employer] [place] [facility] [employer] 4 16:40:25 Hyperglycemia 73607516 Active Not Available [facility] 3 02:39:45 Iron deficiency anemia 55923907 Active 2016 Aspen Mabry APRN [address], [place], [address] , [facility] [place] [facility] [employer] 4 16:40:17 Serum creatinine above reference range 311154798 Active 2022 Rosi Irizarry MD [address], [place], [address] , [employer] [place] [facility] [employer] 3 08:03:13 Onychomycosis of toenails 447734696 Active 2022 Rosi Irizarry MD [address], [place], [address] , [place] [facility] [employer] 3 14:07:09 Increased liver function 78516140 Active 2022 Rosi Irizarry MD [address], [place], [address] , [email or web address] 3 14:07:15 Migraine 70484829 Active 2022 Aspen Mabry DEVELOPMENTAL BEHAVIORAL PHYSICIAN [address], [place], [address] , [facility] [place] [facility] [email or web address] 4 16:40:20 Elevated blood-pressur e reading without diagnosis of hypertension 428351018 Active 2022 Rosi Irizarry MD [address], [place], [address] , [employer] [facility] [employer] 3 14:16:17 Acne 73534235 Active 2023 Rosi Irizarry MD [address], [place], [address] , [employer] 4 10:11:34 Fatigue 55573247 Active 2023 PETER Godwin [address], [place], [address] , [employer] [facility] [email or web address] 4 10:30:47 Anxiety 35913763 Active 2023 PETER Juarez [address], [place], [address] , [employer] [facility] [email or web address] 4 11:12:23 Creatine kinase level above reference range 479796701 Active 2023 PETER Juarez [address], [place], [address] , [email or web address] 4 15:01:33 Essential hypertension 27430612 Active 2024 PETER Juarez [address], [place], [address] , [email or web address] 5 17:03:33 Problem Notes None recorded. Procedures Surgical History Date Name Laterality Status Provider Name and Address Organization Details Recorded Time Hysterectomy completed Jeana Jaquez LPN [place] [facility] 07/22/2022 09:07:36 Imaging Results None recorded. Procedure Notes None recorded. Medical Equipment None [...] Available Tri-Sprinte c (28) 0.18 mg(7)/0.215 mg(7)/0.25 mg(7)-0.035 mg tablet active Not Available Not Available No t Available erythromyci n with ethanol 2 % [...] Address Organization Details Last Updated DateTime 06/13/2023 81965.3 6 g 97.6 [degF] 92 /min 146 mm[Hg] 78 mm[Hg] Kamran Fraire RN [facility] [employer] [facility] 4 09:58:09 Date Recorded Body weight Body mass index (BMI) Body height Body temperature Heart rate Oxygen saturation Oxygen saturation in Arterial blood by Pulse oximetry Systolic blood pressure Diastolic blood pressure Provider Name and Address Organization Details Last Updated DateTime 4 24053.3 2 g 39 kg/m2 160.02 cm 98.5 [degF] 61 /min 100 % 100 % 130 mm[Hg] 88 mm[Hg] Ritika Raya RN [facility] [employer] [facility] 4 10:19:55 Date Recorded Body weight Body temperature Heart rate Oxygen saturation Oxygen saturation in Arterial blood by Pulse oximetry Systolic blood pressure Diastolic blood pressure Provider Name and Address Organization Details Last Updated DateTime 3 28211.5 4 g 98.3 [degF] 90 /min 99 % 99 % 190 mm[Hg] 118 mm[Hg] Kamran Fraire RN [facility] [employer] [facility] 3 14:01:54 Date Recorded Body height Body mass index (BMI) Body weight Body temperature Heart rate Oxygen saturation Oxygen saturation in Arterial blood by Pulse oximetry Systolic blood pressure Diastolic blood pressure Provider Name and Address Organization Details Last Updated DateTime 4 160.02 cm 40.2 kg/m2 890827. 47 g 97.6 [degF] 75 /min 98 % 98 % 148 mm[Hg] 102 mm[Hg] Ritika Raya RN [facility] [employer] [facility] 4 10:59:48 Date Recorded Body height Systolic blood pressure Diastolic blood pressure Provider Name and Address Organization Details Last Updated DateTime 03/26/2024 160.02 cm 140 mm[Hg] 96 mm[Hg] Christy Doan RN [facility] 03/26/2024 15:27:13 Social History Question Answer Notes LastModified by [employer] Details LastModified Time Tobacco Smoking Status Never Smoker Not Available [facility] 05/26/2022 02:33:30 Do You Have An Advance Directive? No [id number] Information not available 05/26/2022 What Is Your Level Of Caffeine Consumption? None [id number] Information not available 05/26/2022 Are There Any Guns Present In Your Home? No [id number] Information not available 05/26/2022 Do You Use Sunscreen Routinely? No [id number] Information not available 05/26/2022 Sex: Unknown Functional Status Question Answer Note LastModified by [employer] Details LastModified Time What is your level of alcohol consumption? None [id number] Information not available 05/26/2022 Mental Status None recorded. Family History Relationship Description Onset Age of this Age Resolved Age Notes LastModified by Organization Details LastModified Time Mother Diabetes mellitus [id number] Not available 05/26/2022 02:34:25 Paternal Aunt Diabetes mellitus [id number] Not available 05/26/2022 02:34:25 Paternal Grandmother Family history of malignant neoplasm [id number] [id number] Not available 05/26/2022 02:34:25 Medical History No medical history recorded. Gynecological HistoryNo gynecological history recorded. Obstetrics History GPAL:G 0 P 0 0 0 0 Immunizations Vaccine Type Date Status Note Provider Nam e and Address Organization Details Recorded Time Tdap 06/23/2015 completed Not Available [facility] 05/26/2022 02:46:20 Influenza, split virus, quadrivalent, PF 12/21/2017 completed Not Available [facility] 03/2022 02:46:20 COVID-19, mRNA, LNP-S, PF, 30 mcg/0.3 mL dose 06/12/2020 completed Aspen Mabry APRN [address], [place], [address], [email or web address] 03/06/2024 16:36:39 COVID-19, mRNA, LNP-S, PF, 30 mcg/0.3 mL dose 07/06/2020 completed Aspen Mabry APRN [address], [place], [address], [employer] 03/06/2024 16:36:39 Tdap 05/19/2017 completed Aspen Mabry APRN [address], [place], [address], [employer] 03/06/2024 16:36:39 HPV, bivalent 05/30/2008 completed Aspen Perez er, DEVELOPMENTAL BEHAVIORAL PHYSICIAN [address], [place], [address], [employer] 03/06/2024 16:36:39 HPV, bivalent 07/12/2007 completed Aspen Perez er, DEVELOPMENTAL BEHAVIORAL PHYSICIAN [address], [place], [address], [email or web address] 03/06/2024 16:36:39 Hep B, adolescent or pediatric 05/30/1998 completed Aspen Mabry APRN [address], [place], [address], [email or web address] 03/06/2024 16:36:39 Influenza, split virus, quadrivalent, PF 12/07/2022 completed Kamran Fraire RN [facility], [employer] [facility] 12/07/2022 14:28:24 Past Encounters Encounter ID Performer Location Encounter Start Date Encounter Closed Date Diagnosis/Indication Diagnosis SNOMED-CT Code Diagnosis ICD10 Code Diagnosis Note [id number] Rosi Irizarry MD [facility] Primary [facility] [place] [address] [facility] [address] [place] [address] 06/26/2020 00:00:00 06/26/2020 17:17:05 [id number] Rosi Irizarry MD [facility] Primary [facility] [place] [address] [facility] [address] [place] [address] 07/14/2020 00:00:00 07/15/2020 14:31:26 [id number] Rosi Irizarry MD [facility] Primary [facility] [place] [address] [facility] [address] [place] [address] 09/24/2020 00:00:00 09/24/2020 17:03:11 [id number] Rosi Irizarry MD [facility] Primary [facility] [place] [address] [facility] [address] [place] [address] 07/21/2021 00:00:00 07/21/2021 12:19:41 [id number] Rosi Irizarry MD [facility] Primary [place] [address] [place] [address] [address] [place] [address] 10/27/2022 15:46:15 10/27/2022 16:32:41 Adult health examination 446257558 Z00.00 Z13.220 Flu vaccine yearlycovi d booster this [facility] fasting labs Dietary ma nagement surveillance 610409656 Z71.3 restart phentermin eDiscussed healthy diet/exerc iseReviewe d potential med s/e, d/c and be seen if any chest pain, sobf/u in 4 weeks, will monitor bp closely Prediabetes 882753918 R7 3.03 Iron defic iency anemia 54930999 D50.9 Vitamin D deficiency 347 37369 E55.9 [id number] Rosi Irizarry MD [facility] Primary [place] [address] [facility] [address] [place] [address] 12/07/2022 13:56:51 12/07/2022 14:23:18 Onychomycosis of toenails 761706041 B35.1 recheck liver teststerbi nafine 250 mg daily x 12 weeks Migraine 68598058 G43.90 9 trial of topiramate for both migraine and appetitef/ u in 4 weeks or sooner if needed Serum crea tinine above reference range 609420149 R79.89 Acute sinusitis 70107844 J01.90 call/retur n if no improvemen t in 1-2 days or sooner if neededrevi ewed s/s that warrant urgent/meilna rgent eval in meantime Administra tion of influenza vaccine 28197405 Z23 Elevated blood-pressure reading without diagnosis of hypertension 021216282 R03.0 d/c phentermin e due to elevated bpf/u in 4 weeks [id number] Rosi Irizarry MD [facility] Primary Care [address] [place] [address] 06/13/2023 09:49:03 06/13/2023 10:20:34 Migraine 02601281 G43.909 trial of topiramate for both migraine and appetitef/ u in 4 weeks or sooner if needed Acne 45443822 L70.9 rest Elevated blood-pressure reading without diagnosis of hypertension 057443749 R03.0 remain off phentermin ef/u in 6 weeks for repeat bp check [id number] PETER Godwin [facility] Primary Care [address] [place] [address] 11/25/2023 10:14:44 11/25/2023 10:42:58 Acne 04160596 L70.9 chronic, stable with meds Vitamin D deficiency 347 61929 E55.9 Iron defic iency anemia 84370109 D50.9 Fatigue 75747965 R53.83 [id number] PETER Juarez [facility] Primary Care [address] [place] [address] 03/14/2024 10:54:47 03/14/2024 11:26:06 Elevated blood-pressure reading without diagnosis of hypertension 561607369 R03.0 148/102Fol low up in office next week for BP check. Anxiety 38690399 F41.9 Will start treatment as listed below.Nathalie ent to follow up in 4-6 weeks, sooner if needed. [id number] PETER Juarez [facility] Primary [facility] [address] [facility] [address] [place] [address] 03/26/2024 15:15:17 03/26/2024 15:35:01 Health Concerns Section Related Observation LastModified by Organization Detai ls LastModified Time None Recorded Concern Status LastModified by Organization Details LastModified Time None Recorded Advance Directives Directive N: Payers Encounter Date Sequence Insurance Name Policy Number Policy Mcfadden Covered Member ID Mcfadden Member ID Guarantor Name 12/07/2022 1 [facility] ON OR AFTER 09/25/20 (MEDICAID REPLACEMENT - HMO) Natalie Fernández [id number] Natalie Fernández 06/13/2023 1 [facility] ON OR AFTER 09/25/20 (MEDICAID REPLACEMENT - HMO) Natalie Fernández [id number] Natalie Fernández 11/25/2023 1 [facility] ON OR AFTER 09/25/20 (MEDICAID REPLACEMENT - HMO) Natalie Fernández [id number] Natalie Fernández 03/14/2024 1 [facility] ON OR AFTER 09/25/20 (MEDICAID REPLACEMENT - HMO) Natalie Fernández [id number] Natalie Fernández 03/26/2024 1 [facility] ON OR AFTER 09/25/20 (MEDICAID REPLACEMENT - HMO) Natalie Fernández [id number] Natalie Fernández Notes Date Note Type Note [...] least 4 per month Rosi Irizarry MD [address] [place] [address], [address] [address], [place], [address], [facility] [employer] 12/07/2022 14:16:54 06/13/2023 text/html here to f/u [...] denny when stressed. Rosi Irizarry MD [address] [employer], [place], [address], [employer] 06/13/2023 10:17:26 11/25/2023 text/html pt is here for f/u Colbylissette villafuerte, PETER [address] [employer], [place], [address], [employer] 11/25/2023 10:36:05 03/14/2024 text/html Patient is a 39 year old female that presents to the office with asymptomatic elevated blood pressure. Patient reports she had a physical completed at work, [employer], and her BP was elevated-they have checked [...] not remember which medication. PETER Juarez [address], [employer], [place], [address], [employer] 03/25/2024 23:18:21 OBGyn Episode No OBEpisode recorded.
[2024-08-29 08:21] LABS: Basophils Percent Auto 0.7 % (0.2-1.2); Eosinophils Absolute Auto 0.1 K/mm3 (0-0.3); Hematocrit 36.1 % (37.0-47.0); Hemoglobin 11.4 g/dL (12.0-15.0); Immature Granulocyte Absolute 0.02 K/mm3 (0.00-0.031); Immature Granulocyte Percent A 0.3 % (0-0.5); Lymphocytes Absolute Auto 1.79 K/mm3 (0.9-3.2); Lymphocytes Percent Auto 30.5 % (18.3-44.2); Mean Corpuscular HGB Conc 31.6 g/dl (32-36); Mean Corpuscular Hemoglobin 27.3 pg (26-34); Mean Corpuscular Volume 86.4 fl (80-100); Mean Platelet Volume 10.4 fl (7.4-10.4); Monocytes Absolute Auto 0.3 K/mm3 (0.1-0.6); Monocytes Percent Auto 5.3 % (2.6-8.5); Neutrophils Absolute Auto 3.6 K/mm3 (1.3-6.7); Neutrophils Percent Auto 61.2 % (45.5-73.1); Platelet Count Result 213 k/mm3 (150-375); Red Blood Count 4.18 M/mm3 (4.2-5.4); White Blood Count 5.9 K/mm3 (4.5-10.0)
[2024-08-29 08:30] LABS: Add Urine Microscopic? YES; Appearance Urine Clear (Clear); Bacteria Urine None Seen /hpf; Bilirubin Urine Negative (Negative); Blood Urine Negative (Negative); Color Urine Yellow (Yellow); Glucose Urine UA Negative (Negative); Ketones Urine Negative (Negative); Leukocyte Esterase Ur Negative LEU/UL (Negative); Nitrate Urine Negative (Negative); Non Pathogenic Casts 0-2; Protein Urine 1+ mg/dL (Negative); RBC Urine 0-2 /hpf (0-2); Specific Grav Ur 1.008 (1.001-1.035); Squamous Epithelial Cell Urine None Seen /hpf (Few); Urobilinogen Urine 0.2 mg/dL (<2.0); WBC Urine 0-5 /hpf (0-3)
[2024-08-29 08:53] LABS: Alanine Aminotransferase 15 U/L (6-35); Albumin Level 4.4 g/dL (3.5-5.1); Alkaline Phosphatase 69 U/L (38-126); Anion Gap 12 mmol/L (4-12); Aspartate Amino Transferase 24 U/L (14-36); Bilirubin,Total 0.3 mg/dL (0.2-1.3); Blood Urea Nitrogen 49 mg/dL (7-17); Calcium 8.7 mg/dL (8.4-10.2); Carbon Dioxide 15 mmol/L (22-30); Chloride 113 mmol/L (98-107); Cholesterol 139 mg/dL (0-200); Estimated Glomerular Filt Rate 23; Glucose 99 mg/dL (65-110); HDL Direct 33 mg/dL; Phosphorus 4.7 mg/dL (2.5-4.5); Potassium 5.1 mmol/L (3.4-5.0); Sodium 140 mmol/L (137-145); Total Protein 8.1 g/dL (6.3-8.2); Triglycerides 180 mg/dL (<150); Uric Acid 10.7 mg/dL (2.5-7.5)
[2024-08-29 09:03] LABS: LDL Cholesterol Direct 55 mg/dL
[2024-08-29 11:07] LABS: Parathyroid Intact 106.6 pg/mL (14.5-75.2)
[2024-08-29 11:13] LABS: Vitamin D 25 Hydroxy 29.6 ng/mL
[2024-08-29 11:32] LABS: Hemoglobin A1C 5.3 % (<5.7)
[2024-08-29 11:39] LABS: Creatinine Urine 46.3 mg/dL; Total Protein Urine Random 38 mg/dL; Ur Ttl Prot Creatinine Ratio 0.82 mg/mg (0-0.20)
[2024-09-01 16:18] LABS: ANCA Screen NEGATIVE (NEGATIVE)
== END 2024-08-29 07:46 | disposition home or self-care (01) ==
PROVIDERS: Visit Provider Internal Medicine Nephrology
DX: I12.9 Hypertensive chronic kidney disease with stage 1 through stage 4 chronic kidney disease, or unspecified chronic kidney disease (principal); E13.22 Other specified diabetes mellitus with diabetic chronic kidney disease; N18.32 Chronic kidney disease, stage 3b; E78.2 Mixed hyperlipidemia; E55.9 Vitamin D deficiency, unspecified; K76.0 Fatty (change of) liver, not elsewhere classified; E66.9 Obesity, unspecified
CPT/HCPCS: 36415; 80053; 80061; 81001; 82306; 82570; 83036; 83970; 84100; 84156; 84550; 85025; 86036

== ENCOUNTER 2024-11-15 12:05 | Emergency (ER) | payer OTHER, SELFPAY ==
[2024-11-15 12:12] VITALS: BP 107/60; PULSE 66; RESP 18; TEMP 36.2; O2SAT 100
--- NOTE | 2024-11-15 12:54 | ED.ABDPAIN ---
HPI - Abdominal Pain General Chief Complaint: Abdominal Pain Stated Complaint: Abdominal Pain Time Seen by Provider: 11/15/24 12:45 Source: patient and RN notes reviewed Mode of arrival: ambulatory Limitations: no limitations History of Present Illness HPI narrative: 39-year-old female presents Express Care complaining of lower abdominal pain for last 3 days. Patient denies any nausea, vomiting, or diarrhea. Patient denies any urinary symptoms. 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 Patient reports she has issues with constipation foot she says she had a good bowel movement yesterday. Patient is any fevers, body aches, chills, black tarry stools, or any other symptoms. Patient took Tylenol with no relief. Patient has a history of a hysterectomy. Related Data Home Medications ?Medication ?Instructions ?Recorded ?Confirmed ?Last Taken ?Type chlorthalidone 25 mg tablet mg 11/15/24 Unknown History cholecalciferol (vitamin D3) 62.5 mcg PO 11/15/24 Unknown History mcg (2,500 unit) capsule dapagliflozin propanediol 5 mg mg 11/15/24 Unknown History tablet (Farxiga) lisinopril 10 mg tablet mg 11/15/24 Unknown History rosuvastatin 10 mg tablet mg 11/15/24 Unknown History Allergies Allergy/AdvReac Type Severity Reaction Status Date / Time No Known Allergies Allergy Verified 11/15/24 12:29 Review of Systems Review of Systems: CONSTITUTIONAL: Denies fever, chills, or sweats. EYES: Denies visual changes, redness, or discharge. ENT: Denies rhinorrhea, congestion, sore throat, or otalgia. CARDIOVASCULAR: Denies chest pain, palpitations, or edema. RESPIRATORY: Denies cough or dyspnea. GASTROINTESTINAL: Positive for abdominal pain. Negative for constipation, black tarry stools, vomiting blood, nausea, vomiting, or diarrhea. GENITOURINARY: Denies dysuria or hematuria. SKIN: Denies rash or itching. MUSCULOSKELETAL: Denies back pain, joint pain, or myalgia. NEUROLOGIC: Denies headache, numbness, or weakness. PSYCHIATRIC: Denies anxiety or depression. All other systems reviewed are negative, except as documented in HPI. [facility] Past Medical History Medical History Morbid obesity Hx of migraines Acne Anemia Surgical History Surgical History S/P vaginal hysterectomy S/P endometrial ablation History of hysteroscopy History of tubal ligation Family History Family History Father Diabetes mellitus Liver transplant recipient Mother Diabetes mellitus Grandparent Diabetes mellitus Breast cancer Social History Social History Smoking status: Never smoker Alcohol intake: current Alcohol use details: RARE Substance use: never Substance use type: does not use Lack of Transportation: No Lack of Food: Never True Current Housing: I Have Housing Concerned About Future Housing: No Difficulty Paying Gas/Electric Bills: No Difficulty Paying for Meds: No Currently Unemployed: No Education: Don't Know Difficulty w/ Childcare or Family Care: No Living arrangements: with family Additional living arrangements comments: CHILDREN Gender identity (if verbalized by the patient): Female Sexual Orientation (if Verbalized by the Patient): Straight or Heterosexual Spiritual care concerns: No Comments At the time of my signature, I reviewed and agree with the nursing past medical, surgical, social, and family history. There is no relevant family history pertinent to the patient complaint. Exam Narrative: GENERAL: This is a well-nourished, well-developed adult, in no apparent distress. They are non ill-appearing, nontoxic appearing. HEAD: normocephalic, atraumatic. EYES: Sclera clear/white. Conjunctiva normal. Vision is grossly intact. Extraocular movements intact EARS: External ears normal, Hearing grossly intact. NOSE: External nose normal THROAT: Mucous membranes moist, NECK: Neck supple, CARDIOVASCULAR: Regular rate and rhythm without murmurs, gallops, or rubs. RESPIRATORY: Clear to auscultation. Breath sounds equal bilaterally. No wheezes, rales, or rhonchi. GASTROINTESTINAL: Abdomen soft, tenderness to palpation throughout the lower abdomen, nondistended. Bowel sounds are active. No hepato-splenomegaly, or palpable masses. Patient's guarding her abdomen. No rebound tenderness. SKIN: warm, Dry, intact with no suspicious lesions or rash, good texture and turgor. NEURO: awake, alert, and oriented to person, place and time. There were no obvious focal neurologic abnormalities. EXTREMITIES: No joint tenderness, effusion, or edema noted. Course Course Emergency Course: Portions of this record may have been created with voice recognition software Level of Care: Express Care Visit Vital Signs Vital signs: Vital Signs Temperature 97.2 F L 11/15/24 12:12 Pulse Rate 66 11/15/24 12:12 Respiratory Rate 18 11/15/24 12:12 Blood Pressure 107/60 11/15/24 12:12 Pulse Oximetry 100 11/15/24 12:12 Oxygen Delivery Room Air 11/15/24 12:12 Temperature 97.2 F L 11/15/24 12:12 Pulse Rate 66 11/15/24 12:12 Respiratory Rate 18 11/15/24 12:12 Blood Pressure 107/60 11/15/24 12:12 Pulse Oximetry 100 11/15/24 12:12 Oxygen Delivery Room Air 11/15/24 12:12 Reviewed Transfer Transfered to: [facility] Transportation: Other (Private vehicle) Transfer rationale: Patient requires higher level care, further evaluation management of abdominal pain. Further lab work and advanced imaging. Accepting physician: Talia QUESADA MDM - Abdominal Pain MDM Narrative Medical decision making narrative: Patient guarding her abdomen and tender throughout her lower abdomen. Given patient's symptoms, it is recommend the patient seek a higher level care and proceed immediately to the emergency department. Patient agreeable to [facility]. Colored [facility] and spoke to Talia QUESADA who is aware this patient accepted the patient for transfer. Advised patient remain NPO and proceed immediately to the ER. Patient will drive herself via private vehicle. Patient hemodynamically stable for transfer. Differential Diagnosis Differential diagnosis: Likely abdominal pain, acute appendicitis, constipation, diverticulitis and small bowel obstruction Critical Care Time Critical Care Time Critical Care Time: No Discharge Plan Discharge Clinical Impression: Abdominal pain Qualifiers: Abdominal location: lower abdomen, unspecified Qualified Code(s): R10.30 - Lower abdominal pain, unspecified Patient Disposition: Home Condition: Stable Instructions: Antibiotic Form Patient Language: Paraguayan Prescriptions: No Action chlorthalidone 25 mg tablet lisinopril 10 mg tablet rosuvastatin 10 mg tablet dapagliflozin propanediol [Farxiga] 5 mg tablet cholecalciferol (vitamin D3) 62.5 mcg (2,500 unit) capsule PO Follow-up/Referrals: PHYSICIAN,CUT PRESS OPERATOR [Primary Care Provider, Internal Medicine] Time of Disposition: 12:54
== END 2024-11-15 13:00 | disposition short-term general hospital (02) ==
DX: R10.30 Lower abdominal pain, unspecified (principal); I12.9 Hypertensive chronic kidney disease with stage 1 through stage 4 chronic kidney disease, or unspecified chronic kidney disease; N18.9 Chronic kidney disease, unspecified; E78.00 Pure hypercholesterolemia, unspecified; E66.01 Morbid (severe) obesity due to excess calories; Z68.41 Body mass index [BMI] 40.0-44.9, adult
CPT/HCPCS: 99212; G0463

== ENCOUNTER 2024-11-15 13:16 | Inpatient (IN) | payer OTHER, SELFPAY ==
--- NOTE | ~2024-11-15 | US_ITS ---
EXAMINATION: US transvaginal INDICATION: Possible hemorrhagic ovarian cyst. Hysterectomy 6 years ago. Comparison:CT abdomen and pelvis 11/15/2024; ultrasound pelvis 10/08/2021 TECHNIQUE: Uterus is surgically absent. Left ovary was not visualized. Right ovary measures 3.7 x 2.3 x 2.9 cm with vascular flow. Small amount of complex fluid in the pelvis. IMPRESSION: 1. Uterus is surgically absent. 2. Left ovary is not visualized. 3. Small amount of nonspecific complex fluid in the pelvis. If symptoms persist or worsen, consider a short-term follow-up study or additional imaging for further assessment. Reviewed, dictated and finalized at location Q. IMPRESSION: 1. Uterus is surgically absent. 2. Left ovary is not visualized. 3. Small amount of nonspecific complex fluid in the pelvis. If symptoms persist or worsen, consider a short-term follow-up study or additio nal imaging for further assessment.
--- NOTE | ~2024-11-15 | CT_ITS ---
EXAMINATION: CT abdomen pelvis wo con DATE: 11/15/2024 15:05 INDICATION: Lower abdominal pain TECHNIQUE: Computed tomography (CT) of the abdomen and pelvis was performed without intravenous contrast. Automated exposure control and iterative reconstruction technique were employed. The dose-length product was 1163.06 mGy-cm. COMPARISON: 04/23/2024 FINDINGS: Lung bases are clear. Heart size is normal. No pericardial or pleural effusion. Liver, spleen, pancreas and bilateral adrenal glands are normal. There is mild cortical scarring at the left kidney. There is moderate atrophy of the right kidney. No urolithiasis or hydronephrosis. Bowels including the appendix are normal. The uterus is not identified and has likely been surgically resected. Bladder is normal. Bilateral adnexa are unremarkable. There is a small amount of free fluid in the cul-de-sac which demonstrates slightly higher than simple fluid attenuation which could be due to hemoperitoneum or complex ascites such as in the setting of peritonitis. No abscess or free intraperitoneal gas. Mild l umbar and lower thoracic spondylosis. IMPRESSION: 1. Small amount of complex fluid in the cul-de-sac which could be due to hemoperitoneum or complex ascites such as loosening of pelvic inflammatory disease or peritonitis. 2. Moderate atrophy of the right kidney and scattered mild cortical scarring at the left kidney. Reviewed, dictated and finalized at location A. IMPRESSION: 1. Small amount of complex fluid in the cul-de-sac which could be due to hemope ritoneum or complex ascites such as loosening of pelvic inflammatory disease or peritonitis. 2. Moderate atrophy of the right kidney and scattered mild cortical scarring at the left kidney.
[2024-11-15 13:18] VITALS: BP 110/59; PULSE 62; RESP 16; TEMP 36.6; O2SAT 100
--- OUTSIDE RECORDS SUMMARY | 2024-11-15 13:26 | XMS_ITS | Clinical Summary ---
Author Organization [facility] Facility Address [address] [place] [id number] Care Team Providers Care Pallet Sorter Name Role Phone Unavailable Primary Care Provider Unavailabl e Allergies No known active allergies Medications Cholecalciferol (Vitamin D3) 50 MCG (1999) tablet Take 1 tablet by mouth 1 (one) time each day 90 tablet 1 06/12/2024 Active lisinopril 10 MG tablet Take 1 tablet (10 mg total) by mouth every morning 90 tablet 1 07/31/2024 Active chlorthalidone 25 MG tablet Take 1 tablet (25 mg total) by mouth 1 (one) time each day in the morning 90 tablet 1 07/31/2024 Active Farxiga 5 MG tablet Take 5 mg by mouth 1 (one) time each day in the morning 30 tablet 5 09/04/2024 Active rosuvastatin (CRESTOR) 10 MG tablet TAKE 1 TABLET BY MOUTH EVERY DAY 90 tablet 10/03/2024 Active Active Problems Problem Noted Date Diagnosed Date Proteinuria 07/31/2024 Chronic kidney disease stage 3B 06/12/2024 Obese class II 06/12/2024 Hyperglycemia 06/11/2024 Hyperlipidemia 06/11/2024 Steatotic liver disease 06/11/2024 Essential hypertension 04/04/2024 Increased liver function 12/07/2022 Prediabetes 07/22/2021 Vitamin D deficiency 09/26/2017 Iron deficiency anemia 07/18/2016 Resolved Problems Problem Noted Date Diagnosed Date Resolved Date Acne 06/12/2024 09/04/2024 Creatine kinase level above reference range 03/14/2024 07/31/2024 Encounters Date Type Department Care Team Description 10/02/2024 Refill [facility] [address] [place] [phone] Jacinto Krishnamurthy MD 09/12/2024 Orders Only [facility] [address] [phone] Jacinto Krishnamurthy MD Chronic kidney disease stage 3B (HCC); Prediabetes; Essential hypertension; Hyperlipidemia, not otherwise specified; Steatotic liver disease; Obese class II; Acne vulgaris; Vitamin D deficiency, not otherwise specified 09/04/2024 10:30 AM CDT Office Visit [facility], [facility] [address] [phone] Jacinto Krishnamurthy MD Chronic kidney disease stage 3B (HCC) (Primary Dx); Essential hypertension; Hyperglycemia, not otherwise specified; Hyperlipidemia, not otherwise specified; Increased liver function; Iron deficiency anemia, not otherwise specified; Prediabetes; Proteinuria, not otherwise specified; Steatotic liver disease; Vitamin D deficiency, not otherwise specified 09/03/2024 Documentation Only [facility] [address] [place] [phone] Jacinto Krishnamurthy MD 08/29/2024 Documentation Only [facility] [address] [facility] [address] [place] [phone] Jacinto Krishnamurthy MD 08/29/2024 Documentation Only [facility], [facility] [address] [facility] [address] [place] [phone] Jacinto Krishnamurthy MD 08/29/2024 Documentation Only [facility] [address] [place] [phone] Jacinto Krishnamurthy MD 08/29/2024 Documentation Only [facility] [address] [place] [phone] Jacinto Krishnamurthy MD 08/23/2024 Documentation Only [facility], [address] [phone] Jacinto Krishnamurthy MD from Last 3 Months Family History Medical History Relation Comments Cancer Maternal Grandmother Diabetes Mother Relation Status Comments Father Alive Maternal Grandmother Mother Alive Social History Tobacco Use Types Packs/Day Years Used Date Smoking Tobacco: Never Smokeless Tobacco: Never Tobacco Cessation:Counseling Given: Not Answered Alcohol Use Standard Drinks/Week Comments Not Currently 0 (1 standard drink = 0.6 oz pur e alcohol) Comments Unknown Sex and Gender Information Value Date Recorded Sex Assigned at Not on file Legal Sex Female 1:15 PM EST Gender Identity Not on file Sexual Orientation Not on file Last Filed Vital Signs Vital Sign Reading Time Taken Comments Blood Pressure 126/82 09/04/2024 10:39 AM CDT Pulse 62 09/04/2024 10:39 AM CDT Temperature 36.7 C (98 F) 07/31/2024 11:20 AM CDT Respiratory Rate 18 09/04/2024 10:39 AM CDT Oxygen Saturation 98% 09/04/2024 10:39 AM CDT Inhaled Oxygen Concentration - - Weight 106 kg (233 lb) 09/04/2024 10:39 AM CDT Height 162.6 cm (5' 4) 09/04/2024 10:39 AM CDT Body Mass Index 39.99 09/04/2024 10:39 AM CDT Plan of Treatment Upcoming Encounters Date Type Department Care Team (Late st Contact Info) Description 12/04/2024 11:15 AM CDT Office Visit [facility], [facility] [address] [facility] [address] [place] [address] Jacinto Krishnamurthy MD [address] [phone] Health Maintenance Due Date Last Done Comments Hepatitis B Vaccine (2 of 3 - 3-dose series) 06/27/1998 05/30/1998 Pneumococcal Vaccine: Peds ( 0 to 5 Years) and At-Risk Patients (6 to 49 Years) (1 of 2 - PCV) 2005 Influenza Vaccine (#1) 2024 12/07/2022, 2017 Procedures Procedure Name Priority Date/Time Associated Diagnosis Comments EXT RESULT ENTRY Routine 08/29/2024 from Last 3 Months Results * (ABNORMAL) EXT RESULT ENTRY (08/29/2024) WBC 5.9 3.3 - 10.0 10*3/ML Red Blood Cell Count 4.18 Hemoglobin 11.4(A) 12.0 - 16.0 Hematocrit 36.1 36.0 - 46.0 Platelets 213 150 - 399 10*3/UL MCV 66.4(A) 82.0 - 108.0 Sodium 140 137 - 147 Potassium 5.1 3.4 - 5.5 Chloride 113.0(A) 99.0 - 108.0 Carbon Dioxide 15 mmol/L Anion Gap 12 <=30 MMOL/L Glucose 99 60 - 200 BUN 49(A) 4 - 21 mg/dL Creatinine 2.40(A) 0.50 - 1.10 mg/dL Total Protein 8.1 6.4 - 8.2 G/DL Albumin 4.4 3.5 - 5.0 g/dL Calcium 8.7 8.7 - 10.7 mg/dL Phosphorus, Serum 4.7 eGFR Non-Afr [place] 23(L) Uric Acid 10.7 MG/DL PTH 106.6 PG/ML Vitamin D, 25-OH, Total 29.6 ng/mL Hemoglobin A1C 5.3 4.0 - 6.0 Protein Urine Random 38 Creatinine, Urine Random 46.3 mg/dL Urine Protein/Creatini ne Ratio 0.82(H) mg/g creat Glucose, UA Negative mg/dL Bilirubin, UA Negative Ketones, UA Negative Urine Specific [place] 1.008 Blood, UA Negative Faustino/ul pH, UA 6.0 Protein, UA 1+ mg/dL Urobilinogen, UA 0.2 Nitrite, UA Negative Leukocytes, UA Negative WBC, Urine None Seen None Seen, Occasional, 0-2 /HPF RBC, Urine None Seen None Seen, Occasional, 1-5 /HPF Epithelial Cells in Urine None Seen /HPF Bacteria, Urine None Seen None Seen, Occasional /HPF Triglycerides 180(H) Cholesterol, Total 139 HDL 33 mg/dL LDL-Calculated 55 08/29/2024 us Historical Provider LAB BLOOD ORDERABLES Gina l Result from Last 3 Months Insurance Medicaid [place]
--- OUTSIDE RECORDS SUMMARY | 2024-11-15 13:26 | XMS_ITS | Clinical Summary ---
Author Organization [facility] Address [address] [place] [address] Care Team Providers Care Residential Building Inspector Name Role Phone Rosi Irizarry MD [...] 9:11 PM CDT Height 162.6 cm (5' 4) 09/02/2021 9:11 PM CDT Body Mass Index 39.48 09/02/2021 9:11 PM CDT Plan of Treatment Not on file Insurance [facility] Care Teams Residential Building Inspector Relationship Specialty Start Date End Date Rosi Irizarry MD [address] [place] [id number] PCP - General Family Medicine 09/02/21
--- OUTSIDE RECORDS SUMMARY | 2024-11-15 14:17 | XMS_ITS | Clinical Summary ---
Author Organization [facility] Address [address] [place] [address] Care Team Providers Care School Physical Therapist Name Role Phone Rosi Irizarry MD Primary [...] Plan of Treatment Not on file Insurance [facility] Care Teams School Physical Therapist Relationship Specialty Start Date End Date Rosi Irizarry MD [address] [place] [phone] PCP - General Family Medicine 09/02/21
--- OUTSIDE RECORDS SUMMARY | 2024-11-15 14:17 | XMS_ITS | Clinical Summary ---
Author Organization [facility] Facility Address [address] [place] [id number] Care Team Providers Care Supercharger Mechanic Name Role Phone Unavailable Primary Care Provider [...] Type Department Care Team Description 10/02/2024 Refill [facility] [address] [place] [phone] Jacinto Krishnamurthy MD 09/12/2024 Orders Only [facility] [address] [phone] Jacinto Krishnamurthy MD Chronic kidney disease stage 3B (HCC); Prediabetes; Essential hypertension; Hyperlipidemia, not otherwise specified; Steatotic liver disease; Obese class II; Acne vulgaris; Vitamin D deficiency, not otherwise specified 09/04/2024 10:30 AM CDT Office Visit [facility], [facility] [address] [phone] Jacinto Krishnamurthy MD Chronic kidney disease stage 3B (HCC) (Primary Dx); Essential hypertension; Hyperglycemia, not otherwise specified; Hyperlipidemia, not otherwise specified; Increased liver function; Iron deficiency anemia, not otherwise specified; Prediabetes; Proteinuria, not otherwise specified; Steatotic liver disease; Vitamin D deficiency, not otherwise specified 09/03/2024 Documentation Only [facility] [address] [place] [phone] Jacinto Krishnamurthy MD 08/29/2024 Documentation Only [facility] [address] [facility] [address] [place] [phone] Jacinto Krishnamurthy MD 08/29/2024 Documentation Only [facility], [facility] [address] [facility] [facility] [address] [place] [phone] Jacinto Krishnamurthy MD 08/29/2024 Documentation Only [facility] [address] [place] [phone] Jacinto Krishnamurthy MD 08/29/2024 Documentation Only [facility] [address] [place] [phone] Jacinto Krishnamurthy MD 08/23/2024 Documentation Only [facility], [address] [phone] Jacinto Krishnamurthy MD from Last [...] Description 12/04/2024 11:15 AM CDT Office Visit [facility], [facility] [address] [facility] [address] [place] [address] Jacinto Krishnamurthy MD [address] [phone] Health Maintenance Due Date Last Done Comments [...] 10.7 mg/dL Phosphorus, Serum 4.7 eGFR Non-Afr Spanish 23(L) Uric Acid 10.7 MG/DL PTH 106.6 PG/ML Vitamin D, 25-OH, Total 29.6 ng/mL Hemoglobin A1C 5.3 4.0 - 6.0 Protein Urine Random 38 Creatinine, Urine Random 46.3 mg/dL Urine Protein/Creatini ne Ratio 0.82(H) mg/g creat Glucose, UA Negative mg/dL Bilirubin, UA Negative Ketones, UA Negative Urine Specific [place] 1.008 Blood, UA Negative Faustino/ul pH, UA [...]
[2024-11-15 14:29] LABS: Hematocrit 35.5 % (37.0-47.0); Hemoglobin 11.0 g/dL (12.0-15.0); Immature Granulocyte Percent A 0.3 % (0-0.5); Lymphocytes Absolute Auto 2.10 K/mm3 (0.9-3.2); Mean Corpuscular HGB Conc 31.0 g/dl (32-36); Mean Corpuscular Hemoglobin 27.7 pg (26-34); Mean Corpuscular Volume 89.4 fl (80-100); Nucleated Red Blood Cells Absolute Auto 0.000 K/mm3 (0.0-0.012); Nucleated Red Blood Cells Perc 0.0 % (0.0-0.2); Platelet Count Result 181 k/mm3 (150-375); Red Blood Count 3.97 M/mm3 (4.2-5.4); White Blood Count 7.3 K/mm3 (4.5-10.0)
[2024-11-15 14:37] LABS: Add Urine Microscopic? YES; Appearance Urine Cloudy (Clear); Glucose Urine UA Trace mg/dL (Negative); Leukocyte Esterase Ur Negative LEU/UL (Negative); Nitrate Urine Negative (Negative); Non Pathogenic Casts 0-2; Specific Grav Ur 1.011 (1.001-1.035)
[2024-11-15 14:48] LABS: Alanine Aminotransferase 15 U/L (6-35); Albumin Level 4.6 g/dL (3.5-5.1); Alkaline Phosphatase 64 U/L (38-126); Anion Gap 14 mmol/L (4-12); Aspartate Amino Transferase 23 U/L (14-36); Bilirubin,Total 0.4 mg/dL (0.2-1.3); Blood Urea Nitrogen 81 mg/dL (7-17); Calcium 8.8 mg/dL (8.4-10.2); Carbon Dioxide 12 mmol/L (22-30); Chloride 115 mmol/L (98-107); Estimated CRCL calculation 23 ml/min; Estimated Glomerular Filt Rate 15; Glucose 88 mg/dL (65-110); Lipase 548 U/L (23-300); Potassium 5.8 mmol/L (3.4-5.0); Sodium 141 mmol/L (137-145); Total Protein 8.7 g/dL (6.3-8.2)
--- NOTE | 2024-11-15 14:54 | ED_ITS ---
HPI - Abdominal Pain General Chief Complaint: Abdominal Pain Stated Complaint: abdominal pain Time Seen by Provider: 11/15/24 13:49 History of Present Illness HPI narrative: This is a 39-year-old female with history of hypertension who presents to the ED for lower abdominal pain. Patient states that yesterday, she was leaving work when she became lightheaded with a hot flash and had lower abdominal pain. She had to be helped to her car. Pain is continued through today. She has seen Urgent capitis have asked he for further evaluation. Patient has a prior hysterectomy and still has her ovaries. Denies vaginal bleeding, hematuria, constipation, diarrhea. Related Data Home Medications ?Medication ?Instructions ?Recorded ?Confirmed ?Last Taken ?Type chlorthalidone 25 mg tablet mg 11/15/24 Unknown Histo ry cholecalciferol (vitamin D3) 62.5 mcg PO 11/15/24 Unk nown History mcg (2,500 unit) capsule dapagliflozin propanediol 5 mg mg 11/15/24 Unknown Hi story tablet (Farxiga) lisinopril 10 mg tablet mg 11/15/24 Unknown History rosuvastatin 10 mg tablet mg 11/15/24 Unknown History Allergies Allergy/AdvReac Type Severity Reaction Status Date / Time No Known Allergies Allergy Verified 11/15/24 19:46 Review of Systems 2 Review of Systems: Gen.: Denies fevers or chills Eyes: Denies eye pain or visual change ENT: Denies congestion Respiratory: Denies shortness of breath or cough CV: Denies chest pain or palpitations GI: as per HPI As per HPI Musculoskeletal: Denies back pain or muscle pain Neuro: Denies numbness, tingling, weakness or focal weakness Skin: Denies rash Except as documented, all other systems reviewed and negative [facility] Past Medical History Medical History Morbid obesity Hx of migraines Acne Anemia Surgical History Surgical History S/P vaginal hysterectomy S/P endometrial ablation History of hysteroscopy History of tubal ligation Family History Family History Father Diabetes mellitus Liver transplant recipient Mother Diabetes mellitus Grandparent Diabetes mellitus Breast cancer Social History Social History Smoking status: Never smoker Alcohol intake: current Alcohol use details: RARE Substance use: never Substance use type: does not use Lack of Transportation: No Lack of Food: Never True Current Housing: I Have Housing Concerned About Future Housing: No Difficulty Paying Gas/Electric Bills: No Difficulty Paying for Meds: No Currently Unemployed: No Education: Don't Know Difficulty w/ Childcare or Family Care: No Living arrangements: with family Additional living arrangements comments: CHILDREN Gender identity (if verbalized by the patient): Female Sexual Orientation (if Verbalized by the Patient): Straight or Heterosexual Spiritual care concerns: No Exam 2 Narrative: APPEARANCE: No acute distress, nontoxic, resting in bed EYES: EOMI HEENT: Normocephalic, atraumatic, OMM RESPIRATORY: No respiratory distress Clear to auscultation bilaterally with no rhonchi wheezing or rales. CARDIOVASCULAR: Regular rate and rhythm without murmurs rubs or gallops. ABDOMINAL: Soft, mild lower abdominal tenderness to palpation without rebound or MUSCULOSKELETAl: Moves all extremities. No clubbing, cyanosis or edema. NEURO: Awake and alert. Following commands, speech normal, no focal deficits SKIN:: Warm, dry. No rashes lesions or abrasions PSYCHIATRIC: Normal affect/mood, Course Vital Signs Vital signs: Vital Signs Temperature 97.9 F 11/15/24 13:18 Pulse Rate 62 11/15/24 13:18 Respiratory Rate 16 11/15/24 13:18 Blood Pressure 110/59 L 11/15/24 13:18 Pulse Oximetry 100 11/15/24 13:18 Oxygen Delivery Room Air 11/15/24 13:18 Temperature 97.9 F 11/15/24 13:18 Pulse Rate 71 11/15/24 17:41 Respiratory Rate 15 11/15/24 17:41 Blood Pressure 111/67 11/15/24 17:41 Pulse Oximetry 98 11/15/24 17:41 Oxygen Delivery Room Air 11/15/24 13:18 MDM - Abdominal Pain MDM Narrative Medical decision making narrative: 31-year-old female that presented to the ED for lower abdominal pain. Under initial evaluation, patient was in no acute distress, afebrile, hemodynamically stable. She had mild lower abdominal tenderness to palpation without rebound or guarding. CMP revealed acute on chronic renal failure with creatinine greater than 3 from baseline around 2. Also noted hyperkalemia at 5.8. With a metabolic acidosis with bicarb at 12. Lipase also noted to be slightly elevated at 548. Urinalysis clear. EKG obtained and showed no evidence of peaked T- waves or QRS complex changes. CT abdomen/pelvis without contrast showed a small amount of complex fluid in the pelvis. Subsequent transvaginal ultrasound showed complex fluid in the pelvis and the left ovary was not visualized. On reevaluation, patient's pain had improved without any medications. Low suspicion for ongoin intraperitoneal bleeding at this time. I did discuss the case with Dr. Fatima, [place], does not think the patient needs urgent operative intervention, will see the patient as a consult. Patient will require admission for close monitoring of CT findings and for acute on chronic renal failure. Discussed the case with hospitalist who will admit the patient. Differential Diagnosis Differential diagnosis: Likely other (ovarian cyst, renal calculus, diverticulitis, constipation) Medical Records Attestation: I reviewed the patient's medical records. Lab Data Attestation: I reviewed the patient's lab results. 11/15/24 14:21 11/15/24 14:21 Labs: Lab Results 11/15/24 11/15/24 Range/Units 14:21 14:22 WBC 7.3 (4.5-10.0) K/mm3 RBC 3.97 L (4.2-5.4) M/mm3 Hgb 11.0 L (12.0-15.0) g/dL Hct 35.5 L (37.0-47.0) % MCV 89.4 (80-100) fl MCH 27.7 (26-34) pg MCHC 31.0 L (32-36) g/dl RDW 14.8 H (11.5-14.5) % Plt Count 181 (150-375) k/mm3 MPV 10.8 H (7.4-10.4) fl Immature Gran % (Auto) 0.3 (0-0.5) % Neut % (Auto) 63.9 (45.5-73.1) % Lymph % (Auto) 28.7 (18.3-44.2) % [place] % (Auto) 5.7 (2.6-8.5) % Eos % (Auto) 1.0 (0-4.4) % Baso % (Auto) 0.4 (0.2-1.2) % Lymph # (Auto) 2.10 (0.9-3.2) K/mm3 [place] # (Auto) 0.4 (0.1-0.6) K/mm3 Eos # (Auto) 0.1 (0-0.3) K/mm3 Baso # (Auto) 0.0 (0.0-0.1) K/mm3 Abs Immat Gran (auto) 0.02 (0.00-0.031) K/mm3 Absolute Neuts (auto) 4.7 (1.3-6.7) K/mm3 Absolute Nucleated RBC 0.000 (0.0-0.012) K/mm3 Nucleated RBC % 0.0 (0.0-0.2) % Sodium 141 (137-145) mmol/L Potassium 5.8 H (3.4-5.0) mmol/L Chloride 115 H (98-107) mmol/L Carbon Dioxide 12 L (22-30) mmol/L Anion Gap 14 H (4-12) mmol/L BUN 81 H D (7-17) mg/dL Creatinine 3.39 H (0.7-1.0) mg/dL Estim Creat Clear Calc 23 ml/min Estimated GFR 15 L (59 - ) Glucose 88 (65-110) mg/dL Calcium 8.8 (8.4-10.2) mg/dL Total Bilirubin 0.4 (0.2-1.3) mg/dL AST 23 (14-36) U/L ALT 15 (6-35) U/L Alkaline Phosphatase 64 (38-126) U/L Total Protein 8.7 H (6.3-8.2) g/dL Albumin 4.6 (3.5-5.1) g/dL Lipase 548 H (23-300) U/L Urine Color Yellow (Yellow) Urine Appearance Cloudy H (Clear) Urine pH 5.5 (5.0-9.0) Ur Specific [place] 1.011 (1.001-1.035) Urine Protein Trace (Negative) mg/dL Urine Glucose (UA) Trace H (Negative) mg/dL Urine Ketones Negative (Negative) mg/dL Ur Blood (Man) Negative (Negative) Urine Nitrate Negative (Negative) Urine Bilirubin Negative (Negative) Urine Urobilinogen 0.2 (<2.0) mg/dL Leukocyte Esterase Rfl Negative (Negative) LATHA/UL Urine RBC 0-2 (0-2) /hpf Urine WBC 0-5 (0-3) /hpf Ur Squamous Epith Cells None seen (Few) /hpf Urine Bacteria None seen /hpf Urine Casts 0-2 Imaging Data Radiologist's impression: ITS Impressions Abdomen/Pelvis CT 11/15/24 15:08 IMPRESSION: 1. Small amount of complex fluid in the cul-de-sac which could be due to hemoperitoneum or complex ascites such as loosening of pelvic inflammatory disease or peritonitis. 2. Moderate atrophy of the right kidney and scattered mild cortical scarring at the left kidney. Transvaginal US 11/15/24 16:24 IMPRESSION: 1. Uterus is surgically absent. 2. Left ovary is not visualized. 3. Small amount of nonspecific complex fluid in the pelvis. If symptoms persist or worsen, consider a short-term follow-up study or additional imaging for further assessment. ECG Data EKG #1: ECG completion date: 11/15/24 ECG completion time: 16:23 Prior ECG tracings: not available for review Interpretation: Normal sinus rhythm rate of 60, normal axis, normal intervals, no acute ST or T- wave changes Discharge Plan Discharge Clinical Impression: Iron deficiency anemia secondary to blood loss (chronic), Acute hyperkalemia Acute on chronic kidney failure Qualifiers: Acute renal failure type: unspecified Chronic kidney disease stage: unspecified stage Qualified Code(s): N17.9 - Acute kidney failure, unspecified; N18.9 - Chronic kidney disease, unspecified Abdominal pain Qualifiers: Abdominal location: lower abdomen, unspecified Qualified Code(s): R10.30 - Lower abdominal pain, unspecified Patient Disposition: Still a Patient Condition: Stable
[2024-11-15] MEDS: SODIUM CHLORIDE 0.9% IV 1,000 ML 999 ML IV CONT (15:23)
[2024-11-15 15:26] VITALS: BP 101/55; PULSE 57; RESP 16; O2SAT 98
--- NOTE | 2024-11-15 15:38 | ECG_ITS ---
Test Date: 2024-11-15 16:23:32 Measurements Intervals [place] Rate: 60 P: 27 ND: 137 QRS: 1 QRSD: 90 T: 22 QT: 399 QTc: 399 Interpretive Statements SINUS RHYTHM LOW QRS VOLTAGE IN PRECORDIAL LEADS BASELINE ARTIFACT- I, II, III, AVR, AVL, AVF, V1 BORDERLINE ECG No previous ECG available for comparison Electronically Signed On 11-15-2024 18:39:37 CDT by Rex Cazares D.O.
--- NOTE | 2024-11-15 15:50 | PC.NURSE ---
pt taken to ultrasound at this time
[2024-11-15] MEDS: SODIUM CHLORIDE 0.9% IV 1,000 ML 150 ML IV CONT (17:36)
[2024-11-15] MEDS: SODIUM ZIRCONIUM CYCLOSILICATE 10 GM POWD.PACK PO (17:36)
[2024-11-15 17:41] VITALS: BP 111/67; PULSE 71; RESP 15; O2SAT 98
--- NOTE | 2024-11-15 19:44 | PM.IMHP ---
H&P: HPI History of Present Illness Date/Time: 11/15/24 19:44 Chief Complaint: Abdominal pain Narrative: This is a 39-year-old female with history of hypertension and chronic kidney disease who presents to the ED for lower abdominal pain. Patient states that yesterday, she was leaving work when she became lightheaded with a hot flash and had lower abdominal pain. She had to be helped to her car. Abdominal pain was not associated with any urinary symptoms nausea vomiting or diarrhea. Patient stayed home and went to work again this morning however the abdominal pain continued through the day and was 8 x 10 in intensity. She went to urgent care for evaluation referred her to ER for evaluation. In the ED her vitals were stable afebrile. Laboratory workup revealed WBC of 7.3 hemoglobin 11 platelet count 181. Chem panel showed sodium 41 potassium 5.8 chloride 115 bicarbonate 12 BUN 81 creatinine 3.39 and blood glucose of 88. Lipase was 548. Urinalysis was negative for UTI. CT abdomen pelvis was performed which showed small amount of complex fluid in the cul-de-sac which may be due to hemoperitoneum are complex ascites such as loosening of pelvic inflammatory disease of peritonitis. Moderate atrophy of the right kidney and scattered mild cortical scarring at the left kidney. Transvaginal ultrasound was performed which showed a surgically absent uterus left ovary is not visualized small amount of nonspecific complex fluid in the pelvis was noted. EKG showed normal sinus rhythm with no acute ST-T changes. She received 1 L of IV fluid bolus and a dose of Lokelma. She is admitted on this setting for further treatment. Review of Systems Review of Systems: - CONSTITUTIONAL: Denies weight loss, fever and chills. - HEENT: Denies changes in vision and hearing - RESPIRATORY: Denies SOB and cough. - CV: Denies palpitations and CP. - GI: Reports abdominal pain, denies nausea, vomiting and diarrhea. - : Denies dysuria and urinary frequency. - MSK: Denies myalgia and joint pain. - SKIN: Denies rash and pruritus. - NEUROLOGICAL: Denies headache and syncope. - PSYCHIATRIC: Denies recent changes in mood. Denies anxiety and depression. [facility] Past Medical History Medical History Morbid obesity Hx of migraines Acne Anemia Surgical History Surgical History S/P vaginal hysterectomy S/P endometrial ablation History of hysteroscopy History of tubal ligation Family History Family History Father Diabetes mellitus Liver transplant recipient Mother Diabetes mellitus Grandparent Diabetes mellitus Breast cancer Social History Social History Smoking status: Never smoker Alcohol intake: current Alcohol use details: RARE Substance use: never Substance use type: does not use Lack of Transportation: No Lack of Food: Never True Current Housing: I Have Housing Concerned About Future Housing: No Difficulty Paying Gas/Electric Bills: No Difficulty Paying for Meds: No Currently Unemployed: No Education: Don't Know Difficulty w/ Childcare or Family Care: No Living arrangements: with family Additional living arrangements comments: CHILDREN Gender identity (if verbalized by the patient): Female Sexual Orientation (if Verbalized by the Patient): Straight or Heterosexual Spiritual care concerns: No Meds Home Medications and Allergies Home Medications ?Medication ?Instructions ?Recorded ?Confirmed ?Type chlorthalidone 25 mg tablet mg 11/15/24 History cholecalciferol (vitamin D3) 62.5 mcg PO 11/15/24 History mcg (2,500 unit) capsule dapagliflozin propanediol 5 mg mg 11/15/24 History tablet (Farxiga) lisinopril 10 mg tablet mg 11/15/24 History rosuvastatin 10 mg tablet mg 11/15/24 History Allergies Allergy/AdvReac Type Severity Reaction Status Date / Time No Known Allergies Allergy Verified 11/15/24 19:46 Vital Signs Vital Signs - 24 hr 11/15/24 13:18 11/15/24 15:26 11/15/24 17:41 Temperature 97.9 F Pulse Rate 62 57 L 71 Respiratory Rate 16 16 15 Blood Pressure 110/59 L 101/55 L 111/67 Pulse Oximetry 100 98 98 Oxygen Delivery Room Air Exam Narrative: APPEARANCE: No acute distress, nontoxic, resting in bed EYES: EOMI HEENT: Normocephalic, atraumatic RESPIRATORY: No respiratory distress Clear to auscultation bilaterally with no rhonchi wheezing or rales. CARDIOVASCULAR: Regular rate and rhythm without murmurs rubs or gallops. ABDOMINAL: Soft, mild lower abdominal tenderness to palpation without rebound or guarding MUSCULOSKELETAl: Moves all extremities. No clubbing, cyanosis or edema. NEURO: Awake and alert. Following commands, speech normal, no focal deficits SKIN:: Warm, dry. No rashes lesions or abrasions PSYCHIATRIC: Normal affect/mood, H&P: Results Labs Labs: Short CBC 11/15/24 Range/Units 14:21 WBC 7.3 (4.5-10.0) K/mm3 Hgb 11.0 L (12.0-15.0) g/dL Hct 35.5 L (37.0-47.0) % Plt Count 181 (150-375) k/mm3 BMP 11/15/24 14:21 Sodium 141 Potassium 5.8 H Chloride 115 H Carbon Dioxide 12 L BUN 81 H D Creatinine 3.39 H Glucose 88 Calcium 8.8 Liver Function 11/15/24 Range/Units 14:21 Total Bilirubin 0.4 (0.2-1.3) mg/dL AST 23 (14-36) U/L ALT 15 (6-35) U/L Alkaline Phosphatase 64 (38-126) U/L Albumin 4.6 (3.5-5.1) g/dL Urine 11/15/24 Range/Units 14:22 Urine Color Yellow (Yellow) Urine Appearance Cloudy H (Clear) Urine pH 5.5 (5.0-9.0) Ur Specific [place] 1.011 (1.001-1.035) Urine Protein Trace (Negative) mg/dL Urine Glucose (UA) Trace H (Negative) mg/dL Assessment and Plan Assessment and plan (1) Abdominal pain: Qualifiers: Abdominal location: lower abdomen, unspecified Qualified Code(s): R10.30 - Lower abdominal pain, unspecified Code(s): R10.9 - Unspecified abdominal pain Status: Acute (2) Status post hysterectomy: Code(s): Z90.710 - Acquired absence of both cervix and uterus Status: Acute (3) Acute kidney injury superimposed on CKD: Code(s): N17.9 - Acute kidney failure, unspecified; N18.9 - Chronic kidney disease, unspecified Status: Acute (4) Hyperkalemia: Code(s): E87.5 - Hyperkalemia Status: Acute Plan This is a 39-year-old female with history of hypertension and chronic kidney disease who presents to the ED for lower abdominal pain. Patient states that yesterday, she was leaving work when she became lightheaded with a hot flash and had lower abdominal pain. She had to be helped to her car. Abdominal pain was not associated with any urinary symptoms nausea vomiting or diarrhea. Patient stayed home and went to work again this morning however the abdominal pain continued through the day and was 8 x 10 in intensity. She went to urgent care for evaluation referred her to ER for evaluation. In the ED her vitals were stable afebrile. Laboratory workup revealed WBC of 7.3 hemoglobin 11 platelet count 181. Chem panel showed sodium 141 potassium 5.8 chloride 115 bicarbonate 12 BUN 81 creatinine 3.39 and blood glucose of 88. Lipase was 548. Urinalysis was negative for UTI. CT abdomen pelvis was performed which showed small amount of complex fluid in the cul-de-sac which may be due to hemoperitoneum or complex ascites such as loosening of pelvic inflammatory disease or peritonitis. Moderate atrophy of the right kidney and scattered mild cortical scarring at the left kidney. Transvaginal ultrasound was performed which showed a surgically absent uterus left ovary is not visualized small amount of nonspecific complex fluid in the pelvis was noted. EKG showed normal sinus rhythm with no acute ST-T changes. She received 1 L of IV fluid bolus and a dose of Lokelma. She is admitted on this setting for further treatment. Lower abdominal pain CT with hemoperitoneum or complex ascites such as loosening of pelvic inflammatory disease or peritonitis. Possible ovarian cyst rupture. With metabolic acidosis will cover with Zosyn until infectious process is ruled out. Gynecology has been consulted. Metabolic acidosis IV bicarb continue to monitor Hyperkalemia Lokelma received. Recheck and monitor likely due to ALMA ROSA ALMA ROSA CKD stage 3 baseline creatinine high 1s to low 2s. Currently at 3.39. IV fluid and hydration Hypertension on lisinopril and chlorthalidone which will be held Hyperlipidemia on rosuvastatin check CK DVT prophylaxis SCDs Code status full code Hospitalist [facility] Advance Care Plan I have confirmed that the patient's Advanced Care Plan is present, code status is documented, or surrogate decision maker is listed in patient medical record.: Yes Medication Reconciliation I have utilized all available resources to obtain, update and review the patients current medications (includes all prescriptions, OTC, herbals, cannabis, and nutritional supplements).: Yes
--- NOTE | 2024-11-15 19:51 | ADMGEN ---
This patient, Natalie Fernández, was admitted to [facility] Surg Room 302-01. Patient/family oriented to hospital policies and general routines including ID bracelet, bed and alarms, visiting hours, pain management, procedures, bathroom and other care routines, personal items, smoking policy, room service/diet, and visiting hours. Information on how to activate the Rapid Response Team has been discussed. Patient/Family are encouraged to report perceived risks to care and to ask questions if they do not understand what they are told or what they should do.
[2024-11-15 20:00] VITALS: PULSE 70
[2024-11-15 21:04] LABS: Anion Gap 12 mmol/L (4-12); Blood Urea Nitrogen 75 mg/dL (7-17); Calcium 8.3 mg/dL (8.4-10.2); Carbon Dioxide 13 mmol/L (22-30); Chloride 117 mmol/L (98-107); Creatine Kinase 62 U/L (30-135); Estimated Glomerular Filt Rate 17; Glucose 100 mg/dL (65-110); Potassium 4.8 mmol/L (3.4-5.0); Sodium 142 mmol/L (137-145)
[2024-11-15] MEDS: PIPERACILLIN/TAZOBACTAM SOD 2.25 GM in SODIUM CHLORIDE 0.9% IV 50 ML 100 ML IVPB (21:09)
[2024-11-15] MEDS: SODIUM BICARBONATE 8.4% 100 MEQ in DEXTROSE 5% 1,000 ML 1,000 ML 50 MEQ IV CONT (21:10)
[2024-11-15 21:28] VITALS: BP 124/56; PULSE 71; RESP 20; TEMP 36.2; O2SAT 100
[2024-11-15 21:33] VITALS: BP 134/85; PULSE 85; RESP 18; TEMP 36.2; O2SAT 100
[2024-11-16] VITALS (9 sets, daily range): BP systolic 97–110; BP diastolic 51–60; PULSE 59–72; RESP 14–18; TEMP 35.9–36.2; O2SAT 100
[2024-11-16 01:00] LABS: Total Protein Urine Random 20 mg/dL; Urea Random Urine 551 MG/DL
[2024-11-16 01:07] LABS: Urine Eos QC 2nd Tech Confirmed
--- NOTE | 2024-11-16 03:25 | WPDCN ---
Assessment and Plan Assessment and plan (1) Pelvic pain: Code(s): R10.2 - Pelvic and perineal pain Status: Acute Assessment and Plan: 39-year-old patient who presents to the hospital with complaints of abdominal pain Patient had acute onset of abdominal pain Tuesday evening Present to the hospital yesterday Patient is status post hysterectomy, bilateral salpingectomy, left oophorectomy Patient had a CT scan and pelvic ultrasound which showed small amount of complex fluid within the pelvis Right ovary was visualized and normal in appearance with good blood flow Patient states her pain has continued to improve and states she is pain-free this morning Discussed that pain and fluid in the pelvis may be secondary to a ruptured hemorrhagic cyst of the ovary Given that patient is asymptomatic from a pelvic pain standpoint, will continue to monitor If patient develops further symptoms, would recommend repeat ultrasound outpatient HPI Data of Consult Date/Time: 11/16/24 03:25 Requesting Physician: Avinash Mooney MD Primary Care Provider: [employer]IST[employer] 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 Patient states she acutely felt dizzy had difficulty standing, nauseous. She was able to rest at night. The next day she woke up and still had pain in her abdomen. Patient is status post hysterectomy. She denies any vaginal bleeding. Denies any vaginal discharge. Denies any change in bowel habits. Patient only has 1 ovary remaining. Patient is resting comfortably in bed today. She states her pain has resolved. Review of Systems Review of Systems: All systems reviewed & are unremarkable except as noted in HPI and below PMFSH Past Medical History Medical History Morbid obesity Hx of migraines Acne Anemia Surgical History Surgical History S/P vaginal hysterectomy S/P endometrial ablation History of hysteroscopy History of tubal ligation Family History Family History Father Diabetes mellitus Liver transplant recipient Mother Diabetes mellitus Grandparent Diabetes mellitus Breast cancer Social History Social History Smoking status: Never smoker Second hand tobacco smoke exposure: No Alcohol intake: never Alcohol use details: RARE Substance use: never Substance use type: does not use Lack of Transportation: No Lack of Food: Never True Current Housing: I Have Housing Concerned About Future Housing: No Difficulty Paying Gas/Electric Bills: No Difficulty Paying for Meds: No Currently Unemployed: No Education: Grade School Difficulty w/ Childcare or Family Care: No Living arrangements: with family Additional living arrangements comments: CHILDREN Gender identity (if verbalized by the patient): Female Sexual Orientation (if Verbalized by the Patient): Straight or Heterosexual Spiritual care concerns: No Meds Home Medications and Allergies Home Medications ?Medication ?Instructions ?Recorded ?Confirmed ?Type chlorthalidone 25 mg tablet 25 mg PO DAILY 11/15/24 11/15/24 History cholecalciferol (vitamin D3) 62.5 62.5 mcg PO DAILY 11/15/24 11/15/24 History mcg (2,500 unit) capsule dapagliflozin propanediol 5 mg 5 mg PO DAILY 11/15/24 11/15/24 History tablet (Farxiga) lisinopril 10 mg tablet 10 mg PO DAILY 11/15/24 11/15/24 History rosuvastatin 10 mg tablet 10 mg PO DAILY 11/15/24 11/15/24 History Allergies Allergy/AdvReac Type Severity Reaction Status Date / Time piperacillin (From Zosyn) Allergy Intermediate Chest Pain Verified 11/16/24 04:28 tazobactam (From Zosyn) Allergy Intermediate Chest Pain Verified 11/16/24 04:28 Vital Signs Vital Signs - 24 hr 11/15/24 13:18 11/15/24 15:26 11/15/24 17:41 Temperature 97.9 F Pulse Rate 62 57 L 71 Respiratory Rate 16 16 15 Blood Pressure 110/59 L 101/55 L 111/67 Pulse Oximetry 100 98 98 Oxygen Delivery Room Air 11/15/24 21:28 11/15/24 21:33 Temperature 97.2 F L 97.1 F L Pulse Rate 71 85 Respiratory Rate 20 18 Blood Pressure 124/56 L 134/85 Pulse Oximetry 100 100 Oxygen Delivery Exam Const: General: cooperative and comfortable Resp: Effort & Inspection: normal respiratory effort and able to speak in complete sentences Cardio: Rate: regular rate GI: GI Palp: Yes Soft to palpation, No Tenderness to palpation present (GI) and No Guarding due to palpation present (GI) Skin: General skin exam: normal color Neuro: Cognition (Neuro): normal cognition Speech: normal speech Psych: Appearance: grossly normal Mental Status: mental status grossly normal Results Labs 11/16/24 05:07 11/16/24 05:07 Labs: Short CBC 11/15/24 Range/Units 14:21 WBC 7.3 (4.5-10.0) K/mm3 Hgb 11.0 L (12.0-15.0) g/dL Hct 35.5 L (37.0-47.0) % Plt Count 181 (150-375) k/mm3 BMP 11/15/24 11/15/24 14:21 20:47 Sodium 141 142 Potassium 5.8 H 4.8 Chloride 115 H 117 H Carbon Dioxide 12 L 13 L BUN 81 H D 75 H Creatinine 3.39 H 3.01 H Glucose 88 100 Calcium 8.8 8.3 L Cardiac Enzymes 11/15/24 Range/Units 20:47 Total Creatine Kinase 62 (30-135) U/L Liver Function 11/15/24 Range/Units 14:21 Total Bilirubin 0.4 (0.2-1.3) mg/dL AST 23 (14-36) U/L ALT 15 (6-35) U/L Alkaline Phosphatase 64 (38-126) U/L Albumin 4.6 (3.5-5.1) g/dL Urine 11/15/24 Range/Units 14:22 Urine Color Yellow (Yellow) Urine Appearance Cloudy H (Clear) Urine pH 5.5 (5.0-9.0) Ur Specific [place] 1.011 (1.001-1.035) Urine Protein Trace (Negative) mg/dL Urine Glucose (UA) Trace H (Negative) mg/dL
[2024-11-16 06:27] LABS: Hematocrit 31.9 % (37.0-47.0); Hemoglobin 9.9 g/dL (12.0-15.0); Immature Granulocyte Percent A 0.2 % (0-0.5); Lymphocytes Absolute Auto 2.33 K/mm3 (0.9-3.2); Mean Corpuscular HGB Conc 31.0 g/dl (32-36); Mean Corpuscular Hemoglobin 28.0 pg (26-34); Mean Corpuscular Volume 90.4 fl (80-100); Nucleated Red Blood Cells Absolute Auto 0.000 K/mm3 (0.0-0.012); Nucleated Red Blood Cells Perc 0.0 % (0.0-0.2); Platelet Count Result 169 k/mm3 (150-375); Red Blood Count 3.53 M/mm3 (4.2-5.4); White Blood Count 6.0 K/mm3 (4.5-10.0)
[2024-11-16 06:47] LABS: Alanine Aminotransferase 12 U/L (6-35); Albumin Level 3.8 g/dL (3.5-5.1); Alkaline Phosphatase 53 U/L (38-126); Anion Gap 8 mmol/L (4-12); Aspartate Amino Transferase 22 U/L (14-36); Bilirubin,Total 0.4 mg/dL (0.2-1.3); Blood Urea Nitrogen 71 mg/dL (7-17); Calcium 8.2 mg/dL (8.4-10.2); Carbon Dioxide 15 mmol/L (22-30); Chloride 116 mmol/L (98-107); Estimated Glomerular Filt Rate 19; Glucose 86 mg/dL (65-110); Lipase 377 U/L (23-300); Magnesium 2.6 mg/dL (1.6-2.3); Potassium 5.2 mmol/L (3.4-5.0); Sodium 139 mmol/L (137-145); Total Protein 7.1 g/dL (6.3-8.2)
--- NOTE | 2024-11-16 08:00 | P.PNIM_ITS ---
Progress Note: A&P Assessment and Plan (1) Abdominal pain: Qualifiers: Abdominal location: lower abdomen, unspecified Qualified Code(s): R10.30 - Lower abdominal pain, unspecified Code(s): R10.9 - Unspecified abdominal pain Status: Acute Assessment and Plan: - presented with lower abdominal pain - patient is s/p hysterectomy, bilateral salpingectomy, left oophorectomy - CT A/P with small amount of complex fluid in the cul-de-sac which could be due to hemoperitoneum or complex ascites - Transvaginal ultrasound was performed which showed a surgically absent uterus left ovary is not visualized small amount of nonspecific complex fluid in the pelvis was noted. - afebrile, no leukocytosis, pain resolved -gynecology consulted - suspect pelvic pain may be secondary to a ruptured hemorrhagic cyst of the ovary. Patient is now asymptomatic. No surgical intervention warranted. If symptoms recur, would recommend repeat ultrasound outpatient. (2) Acute kidney injury superimposed on CKD: Code(s): N17.9 - Acute kidney failure, unspecified; N18.9 - Chronic kidney disease, unspecified Status: Acute Assessment and Plan: - Cr 3.39 on admission. baseline slowly worsening, last Cr 2.4 08/29. Unclear cause of CKD? 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 Could be prerenal injury related to dehydration. - hold home chlorthalidone and lisinopril - check bladder scan - continue IV fluids. Cr improving this AM - nephrology consulted, appreciate recs (3) Hyperkalemia: Code(s): E87.5 - Hyperkalemia Status: Acute Assessment and Plan: - K+ 5.8 on presentation - received Lokelma x1, K+ 5.2 today - ordered additional dose of Lokelma - monitor BMP (4) Hypertension: Code(s): I10 - Essential (primary) hypertension Status: Chronic Assessment and Plan: - BP occasionally soft -holding home lisinopril and chlorthalidone due to ALMA ROSA (5) Iron deficiency anemia secondary to blood loss (chronic): Code(s): D50.0 - Iron deficiency anemia secondary to blood loss (chronic) Status: Acute Assessment and Plan: - Hgb 9.9, baseline 11 - may be secondary to CKD - check iron studies (6) Metabolic acidosis: Code(s): E87.20 - Acidosis, unspecified Status: Acute Assessment and Plan: - in setting of acute renal failure - bicarb improving on bicarb infusion - monitor BMP Plan DVT prophylaxis: SCDs, ambulation Disposition: likely home in AM if continues to improve Subjective Date/time seen: 11/16/24 08:00 Interval history: This is a 39-year-old female with history of hypertension and chronic kidney disease who presents to the ED for lower abdominal pain. Patient seen and examined at bedside. Feeling much better this AM. Pain almost completely resolved. Review of Systems Review of Systems: All systems reviewed & are unremarkable except as noted in HPI and below Exam Narrative: General: NAD Eyes: EOMI ENT: neck supple Cardiovascular: Regular rate and rhythm Respiratory: Clear to auscultation, respirations even and unlabored on RA Gastrointestinal: Soft, non tender Genitourinary: no suprapubic tenderness Musculoskeletal: No edema Skin: warm, dry Neuro: Alert. Psych: Mood appropriate Objective Data Vital Signs Vital Signs: Vital Signs - 24 hr 11/15/24 13:18 11/15/24 15:26 11/15/24 17:41 Temperature 97.9 F Pulse Rate 62 57 L 71 Respiratory Rate 16 16 15 Blood Pressure 110/59 L 101/55 L 111/67 Pulse Oximetry 100 98 98 Oxygen Delivery Room Air 11/15/24 20:00 11/15/24 21:28 11/15/24 21:33 Temperature 97.2 F L 97.1 F L Pulse Rate 70 71 85 Respiratory Rate 20 18 Blood Pressure 124/56 L 134/85 Pulse Oximetry 100 100 Oxygen Delivery 11/16/24 00:00 11/16/24 04:00 11/16/24 05:38 Temperature 97.2 F L Pulse Rate 62 64 62 Respiratory Rate 14 Blood Pressure 97/51 L Pulse Oximetry 100 Oxygen Delivery Intake/Output Intake/Output: Intake & Output 11/13/24 11/14/24 11/15/24 11/16/24 23:59 23:59 23:59 23:59 Intake Total 1000 926 Balance 1000 926 Meds/Results Medications: Active Medications Generic Name Dose Route Start Last Admin Trade Name Freq PRN Reason Stop Dose Admin Sodium Bicarbonate 100 meq/ 1,100 mls @ 50 mls/hr 11/15/24 18:30 11/15/24 21:10 Dextrose IV CONT 50 mls/hr .Q22H SANDOR Administration Radiology Results: ITS Impressions Abdomen/Pelvis CT 11/15/24 15:08 IMPRESSION: 1. Small amount of complex fluid in the cul-de-sac which could be due to hemoperitoneum or complex ascites such as loosening of pelvic inflammatory disease or peritonitis. 2. Moderate atrophy of the right kidney and scattered mild cortical scarring at the left kidney. Transvaginal US 11/15/24 16:24 IMPRESSION: 1. Uterus is surgically absent. 2. Left ovary is not visualized. 3. Small amount of nonspecific complex fluid in the pelvis. If symptoms persist or worsen, consider a short-term follow-up study or additional imaging for further assessment. Labs Labs: Laboratory Results - last 24 hr 11/15/24 11/15/24 11/15/24 14:21 14:22 20:47 WBC 7.3 RBC 3.97 L Hgb 11.0 L Hct 35.5 L MCV 89.4 MCH 27.7 MCHC 31.0 L RDW 14.8 H Plt Count 181 MPV 10.8 H Immature Gran % (Auto) 0.3 Neut % (Auto) 63.9 Lymph % (Auto) 28.7 [place] % (Auto) 5.7 Eos % (Auto) 1.0 Baso % (Auto) 0.4 Lymph # (Auto) 2.10 [place]rell # (Auto) 0.4 Eos # (Auto) 0.1 Baso # (Auto) 0.0 Abs Immat Gran (auto) 0.02 Absolute Neuts (auto) 4.7 Absolute Nucleated RBC 0.000 Nucleated RBC % 0.0 Sodium 141 142 Potassium 5.8 H 4.8 Chloride 115 H 117 H Carbon Dioxide 12 L 13 L Anion Gap 14 H 12 BUN 81 H D 75 H Creatinine 3.39 H 3.01 H Estim Creat Clear Calc 23 Not Reportable Estimated GFR 15 L 17 L Glucose 88 100 Lactic Acid 1.0 Calcium 8.8 8.3 L Magnesium Total Bilirubin 0.4 AST 23 ALT 15 Alkaline Phosphatase 64 Total Creatine Kinase 62 Total Protein 8.7 H Albumin 4.6 Lipase 548 H Urine Color Yellow Urine Appearance Cloudy H Urine pH 5.5 Ur Specific [place] 1.011 Urine Protein Trace Urine Glucose (UA) Trace H Urine Ketones Negative Ur Blood (Man) Negative Urine Nitrate Negative Urine Bilirubin Negative Urine Urobilinogen 0.2 Leukocyte Esterase Rfl Negative Urine RBC 0-2 Urine WBC 0-5 Ur Squamous Epith Cells None seen Urine Bacteria None seen Urine Casts 0-2 Urine Eosinophils None seen U Random Total Protein 20 Ur Random Sodium 63 Ur Random Urea 551 Urine Creatinine 72.9 11/16/24 05:07 WBC 6.0 RBC 3.53 L Hgb 9.9 L Hct 31.9 L MCV 90.4 MCH 28.0 MCHC 31.0 L RDW 14.8 H Plt Count 169 MPV 11.0 H Immature Gran % (Auto) 0.2 Neut % (Auto) 52.7 Lymph % (Auto) 39.1 Terrell % (Auto) 6.0 Eos % (Auto) 1.5 Baso % (Auto) 0.5 Lymph # (Auto) 2.33 [place] # (Auto) 0.4 Eos # (Auto) 0.1 Baso # (Auto) 0.0 Abs Immat Gran (auto) 0.01 Absolute Neuts (auto) 3.1 Absolute Nucleated RBC 0.000 Nucleated RBC % 0.0 Sodium 139 Potassium 5.2 H Chloride 116 H Carbon Dioxide 15 L Anion Gap 8 BUN 71 H Creatinine 2.85 H Estim Creat Clear Calc Not Reportable Estimated GFR 19 L Glucose 86 Lactic Acid Calcium 8.2 L Magnesium 2.6 H Total Bilirubin 0.4 AST 22 ALT 12 Alkaline Phosphatase 53 Total Creatine Kinase Total Protein 7.1 Albumin 3.8 Lipase 377 H Urine Color Urine Appearance Urine pH Ur Specific [place] Urine Protein Urine Glucose (UA) Urine Ketones Ur Blood (Man) Urine Nitrate Urine Bilirubin Urine Urobilinogen Leukocyte Esterase Rfl Urine RBC Urine WBC Ur Squamous Epith Cells Urine Bacteria Urine Casts Urine Eosinophils U Random Total Protein Ur Random Sodium Ur Random Urea Urine Creatinine Quality VTE Prophylaxis VTE prophylaxis: mechanical ordered
[2024-11-16 08:39] LABS: Iron 50 ug/dL (37-170)
[2024-11-16 08:52] LABS: Percent Iron Saturation 20 % (20-50)
[2024-11-16] MEDS: SODIUM ZIRCONIUM CYCLOSILICATE 10 GM POWD.PACK PO (09:19)
[2024-11-16 09:20] LABS: Ferritin 86.00 ng/mL (6.24-137)
[2024-11-16 09:46] LABS: Vitamin B12 422.0 pg/mL (239-931)
--- NOTE | 2024-11-16 10:45 | P.CONNP_ITS ---
Assessment and Plan Assessment and plan (1) Acute kidney injury: Code(s): N17.9 - Acute kidney failure, unspecified Status: Acute Assessment and Plan: * as noted by admission labs * creatinine at 3.39mg/dL * etiology not clear - several possibilities: * prerenal factors * infection(?) * relative hypotension * concurrent GLORIA-I and diuretic use * other(?) * evaluation to date noted: * CT imaging with moderate atrophy of the right kidney and scattered mild cortical scarring at the left kidney * renal ultrasound (from June 2024) c/w CKD * urine electrolytes prerenal (by FeUrea) * urine eosinophils negative * CPK normal * mild proteinuria noted * UA with trace protein but no blood (and not indicative of infection) * improvement noted with IVFs * follow trend of repeat labs and UOP (2) Stage 3b chronic kidney disease: Code(s): N18.32 - Chronic kidney disease, stage 3b Status: Chronic Assessment and Plan: * renal insufficiency dates back as far as 2021 (if not longer) * baseline creatinine runs ~ 1.8 - 2.2mg/dl (from review of outpatient labs) * did acutely rise to 2.57mg/dL in March 2024 (GLORIA-I and diuretics were stopped at that time) * most recent labs prior to admission was 2.4mg/dl (August 2024) -- element of CKD progression versus due to increase of lisinopril (from 5mg to 10mg in July 2024)? * apparently, suspicion for glomerulonephritis or interstitial nephritis was low from her primary financial foundations representative with the assumption etiology of CKD was due to hypertension and possibly vascular disease * follows with Dr. Jacinto Krishnamurthy for management of her CKD (3) Hyperkalemia: Code(s): E87.5 - Hyperkalemia Status: Chronic Assessment and Plan: * as noted on admission * due to ALMA ROSA and GLORIA-I use * s/p medical management * follow trend of repeat K+ levels (4) Metabolic acidosis: Code(s): E87.20 - Acidosis, unspecified Status: Acute Assessment and Plan: * due to ALMA ROSA/ARF * on bicarb fluids to compensate * follow CO2 levels (5) Abdominal pain: Code(s): R10.9 - Unspecified abdominal pain Status: Acute Assessment and Plan: * noted on presentation but resolved * admission imaging noted: * CT imaging with small amount of complex fluid in the cul-de-sac which could be due to hemoperitoneum or complex ascites * transvaginal ultrasound demonstrated a surgically absent uterus, left ovary is not visualized, and small amount of nonspecific complex fluid in the pelvis * [employer] recommendations noted * no surgical intervention needed (6) Hypertension: Code(s): I10 - Essential (primary) hypertension Status: Chronic Assessment and Plan: * despite history, running on the soft side since admission * GLORIA-I and chlorthalidone on hold * follow trend of hemodynamics (7) Anemia: Code(s): D64.9 - Anemia, unspecified Status: Acute Assessment and Plan: * suspect due to ALMA ROSA and CKD along with dilutional component from IVFs * anemia studies with mild iron deficiency as well * consider IV venofer if no acute infection present * follow trend of H/H I will continue to follow the patient with you while she remains hospitalized and make further recommendations as deemed necessary. Thank you for allowing me to participate in the care of this patient. L History of Present Illness Reason for Consult Consult date: 11/16/24 Reason for consult: acute renal failure (on chronic kidney disease) Chief Complaint Chief complaint: Acute renal failure, hemoperitoneum History of Present Illness Narrative: The patient is a 39-year-old female with a past medical history as outlined below who presented to [facility] Emergency Room due to complaints of lower abdominal pain. The patient states that the day before admission, she was leaving for work which became somewhat lightheaded with a hot flash and the sudden onset of lower abdominal pain. The pain and symptoms were significant enough that she required assistance from her coworkers to get into her car to go home. There were no other associated symptoms at that time that the abdominal pain started other than the a for mention lightheadedness. No reported nausea, vomiting, diarrhea, or any other GI symptoms. By the time she went home the symptoms seem to have subsided but then she got up on the morning of admission and he abdominal pain return and continued throughout the day without any improvement. She rated the pain as an 8/10 in intensity but it was difficult for her to elaborate on what the abdominal pain felt like although the fact that it was making her very uncomfortable. She subsequently presented to an urgent care center for evaluation of the symptoms but given her history, she was subsequently referred to the emergency room for further assessment. Workup and evaluation emergency room demonstrated the patient to be hemodynamically stable and afebrile although it was noted that her blood pressure was running little bit on the lower side of normal despite her known history of hypertension. Routine blood work revealed a white blood cell count of 7.3, hemoglobin 11.0, and a platelet count of 188 with a chemistry panel that showed a sodium 141, potassium 5.8, chloride 115, bicarb 21, BUN 81, creatinine 3.39, a glucose of 88 along with a lipase of 548. Her urinalysis did not reveal evidence of an acute infection. Her EKG did not demonstrate any ischemic changes or PT waves. A subsequent CT scan of the abdomen pelvis demonstrated a small amount of complex fluid in the pelvis in the cul-de-sac which may be due to hemoperitoneum or complex ascites along with moderate atrophy of the right kidney and scattered mild cortical scarring at the left kidney. a subsequent transvaginal ultrasound showed complex fluid in the pelvis but the left ovary was not able to be visualized. While in the emergency room, her abdominal pain seem to significantly improve without any specific intervention. Given her worsening renal dysfunction in conjunction with these imaging findings, she was admitted to the hospital for further evaluation therapy. Since her admission, her abdominal pain has resolved and her kidney function and acidosis have improved with bicarb fluids although her kidney function is not back to baseline as of yet. Her potassium levels also improved status post medical management and interventions to date. Renal consultation was requested due to her acute kidney injury/acute renal failure on top of her baseline chronic kidney disease. From review of her outpatient records, her baseline creatinine runs around 1.8-2.2 mg/dL classifying her as chronic kidney disease stage IIIB. She normally follows with Dr. Jacinto Kerr for management of her chronic kidney disease. It is felt that her renal insufficiency is secondary to hypertension as it was felt that possibility of a glomerulonephritis or interstitial nephritis was less likely a possibility although as far as I can tell, she never had any significant serological workup done to further assess for this possibility. Her CT imaging is quite suggestive medical renal disease given the atrophy of 1 kidney and cortical scarring in the other although 1 could argue that vascular disease is also playing a role with regard to her renal dysfunction. I am not entirely clear as the etiology of her acute insult although possible prerenal factors and the fact that her blood pressure has been running on the lower side of normal may even do some degree of renal hypoperfusion and hence her worsening kidney function. Currently, at the time my evaluation, she appears to be in no acute distress. Review of Systems 2 Review of Systems: As per HPI. [facility] Past Medical History Medical History (Updated 11/17/24 @ 00:06 by Dena Gallo MD) Morbid obesity Hx of migraines Acne Anemia Surgical History Surgical History S/P vaginal hysterectomy S/P endometrial ablation History of hysteroscopy History of tubal ligation Family History Family History Father Diabetes mellitus Liver transplant recipient Mother Diabetes mellitus Grandparent Diabetes mellitus Breast cancer Social History Social History Smoking status: Never smoker Second hand tobacco smoke exposure: No Alcohol intake: never Alcohol use details: RARE Substance use: never Substance use type: does not use Lack of Transportation: No Lack of Food: Never True Current Housing: I Have Housing Concerned About Future Housing: No Difficulty Paying Gas/Electric Bills: No Difficulty Paying for Meds: No Currently Unemployed: No Education: Grade School Difficulty w/ Childcare or Family Care: No Living arrangements: with family Additional living arrangements comments: CHILDREN Gender identity (if verbalized by the patient): Female Sexual Orientation (if Verbalized by the Patient): Straight or Heterosexual Spiritual care concerns: No Meds Home Medications and Allergies Home Medications ?Medication ?Instructions ?Recorded ?Confirmed ?Type chlorthalidone 25 mg tablet 25 mg PO DAILY 11/15/24 History cholecalciferol (vitamin D3) 62.5 62.5 mcg PO DAILY 11/15/24 History mcg (2,500 unit) capsule dapagliflozin propanediol 5 mg 5 mg PO DAILY 11/15/24 11/15/24 History tablet (Farxiga) lisinopril 10 mg tablet 10 mg PO DAILY 11/15/2410/27 History rosuvastatin 10 mg tablet 10 mg PO DAILY 11/15/2410/27 History Allergies Allergy/AdvReac Type Severity Reaction Status Date / Time piperacillin (From Zosyn) Allergy Intermediate Chest Pain Verified 11/16/24 04:28 tazobactam (From Zosyn) Allergy Intermediate Chest Pain Verified 11/16/24 04:28 Vital Signs Vital Signs Temp Pulse Resp BP Pulse Ox O2 Del Method 11/16/24 09:24 Room Air 11/16/24 05:38 97.2 F L 62 14 97/51 L 100 11/16/24 04:00 64 11/16/24 00:00 62 11/15/24 21:33 97.1 F L 85 18 134/85 100 11/15/24 21:28 97.2 F L 71 20 124/56 L 100 11/15/24 20:00 70 11/15/24 17:41 71 15 111/67 98 11/15/24 15:26 57 L 16 101/55 L 98 Exam 2 Narrative: GENERAL APPEARANCE: well developed well nourished female in no acute distress HEENT: normocephalic, atraumatic, normal conjunctiva and sclera, nares patient NECK: no lymphadenopathy, thyromegaly, or JVD MOUTH: normal lips, teeth, and gums CARDIOVASCULAR: RRR, normal S1 and S2, no rub RESPIRATORY: clear to auscultation bilaterally ABDOMEN: soft, nontender, nondistended, positive bowel sounds present EXTREMITIES: no evidence of cyanosis, clubbing, or edema NEUROLOGICAL: alert and oriented x 3; CN II - XII intact bilaterally; no focal deficits noted Results Lab Results 11/17/24 05:21 11/17/24 05:21 Lab results: Most recent lab results Calcium 8.2 mg/dL (8.4-10.2) L 11/16/24 05:07 Magnesium 2.6 mg/dL (1.6-2.3) H 11/16/24 05:07 Urine Creatinine 72.9 mg/dL 11/15/24 14:21
--- NOTE | 2024-11-16 12:32 | PM.IMHP ---
H&P: HPI History of Present Illness Date/Time: 11/16/24 12:32 Chief Complaint: Abdominal pain Narrative: Since 39-year-old multiparous patient status post hysterectomy a couple years ago done by a different physician who has was admitted with some pelvic discomfort with sudden onset of pain. She suffers from kidney disease chronic and does vigorous work but had some lower abdominal pain. She underwent ultrasound and CT here which showed some free fluid in the uterus absent. She not have pelvics am for some time and she was lost to follow-up I her obstruction. She is feeling much better after being on IV antibiotics and watched here. Review of Systems Review of Systems: All systems reviewed & are unremarkable except as noted in HPI and below PMFSH Past Medical History Medical History Morbid obesity Hx of migraines Acne Anemia Surgical History Surgical History S/P vaginal hysterectomy S/P endometrial ablation History of hysteroscopy History of tubal ligation Family History Family History Father Diabetes mellitus Liver transplant recipient Mother Diabetes mellitus Grandparent Diabetes mellitus Breast cancer Social History Social History Smoking status: Never smoker Second hand tobacco smoke exposure: No Alcohol intake: never Alcohol use details: RARE Substance use: never Substance use type: does not use Lack of Transportation: No Lack of Food: Never True Current Housing: I Have Housing Concerned About Future Housing: No Difficulty Paying Gas/Electric Bills: No Difficulty Paying for Meds: No Currently Unemployed: No Education: Grade School Difficulty w/ Childcare or Family Care: No Living arrangements: with family Additional living arrangements comments: CHILDREN Gender identity (if verbalized by the patient): Female Sexual Orientation (if Verbalized by the Patient): Straight or Heterosexual Spiritual care concerns: No Meds Home Medications and Allergies Home Medications ?Medication ?Instructions ?Recorded ?Confirmed ?Type chlorthalidone 25 mg tablet 25 mg PO DAILY 11/15/24 11/15/24 History cholecalciferol (vitamin D3) 62.5 62.5 mcg PO DAILY 11/15/24 11/15/24 History mcg (2,500 unit) capsule dapagliflozin propanediol 5 mg 5 mg PO DAILY 11/15/24 11/15/24 History tablet (Farxiga) lisinopril 10 mg tablet 10 mg PO DAILY 11/15/24 11/15/24 History rosuvastatin 10 mg tablet 10 mg PO DAILY 11/15/24 11/15/24 History Allergies Allergy/AdvReac Type Severity Reaction Status Date / Time piperacillin (From Zosyn) Allergy Intermediate Chest Pain Verified 11/16/24 04:28 tazobactam (From Zosyn) Allergy Intermediate Chest Pain Verified 11/16/24 04:28 Vital Signs Vital Signs - 24 hr 11/15/24 13:18 11/15/24 15:26 11/15/24 17:41 Temperature 97.9 F Pulse Rate 62 57 L 71 Respiratory Rate 16 16 15 Blood Pressure 110/59 L 101/55 L 111/67 Pulse Oximetry 100 98 98 Oxygen Delivery Room Air 11/15/24 20:00 11/15/24 21:28 11/15/24 21:33 Temperature 97.2 F L 97.1 F L Pulse Rate 70 71 85 Respiratory Rate 20 18 Blood Pressure 124/56 L 134/85 Pulse Oximetry 100 100 Oxygen Delivery 11/16/24 00:00 11/16/24 04:00 11/16/24 05:38 Temperature 97.2 F L Pulse Rate 62 64 62 Respiratory Rate 14 Blood Pressure 97/51 L Pulse Oximetry 100 Oxygen Delivery 11/16/24 09:24 Temperature Pulse Rate Respiratory Rate Blood Pressure Pulse Oximetry Oxygen Delivery Room Air Exam Const: General: cooperative, comfortable and obese Orientation/consciousness: oriented to person, oriented to place and oriented to time Resp: Effort & Inspection: normal respiratory effort Cardio: Rate: regular rate Rhythm: regular rhythm Heart sounds: S1 normal heart sound present and S2 normal heart sound present GI: Inspection: normal to inspection H&P: Results Labs Labs: Short CBC 11/15/24 11/16/24 Range/Units 14:21 05:07 WBC 7.3 6.0 (4.5-10.0) K/mm3 Hgb 11.0 L 9.9 L (12.0-15.0) g/dL Hct 35.5 L 31.9 L (37.0-47.0) % Plt Count 181 169 (150-375) k/mm3 [facility] 11/15/24 11/15/24 11/16/24 14:21 20:47 05:07 Sodium 141 142 139 Potassium 5.8 H 4.8 5.2 H Chloride 115 H 117 H 116 H Carbon Dioxide 12 L 13 L 15 L BUN 81 H D 75 H 71 H Creatinine 3.39 H 3.01 H 2.85 H Glucose 88 100 86 Calcium 8.8 8.3 L 8.2 L Cardiac Enzymes 11/15/24 Range/Units 20:47 Total Creatine Kinase 62 (30-135) U/L Liver Function 11/15/24 11/16/24 Range/Units 14:21 05:07 Total Bilirubin 0.4 0.4 (0.2-1.3) mg/dL AST 23 22 (14-36) U/L ALT 15 12 (6-35) U/L Alkaline Phosphatase 64 53 (38-126) U/L Albumin 4.6 3.8 (3.5-5.1) g/dL Urine 11/15/24 Range/Units 14:22 Urine Color Yellow (Yellow) Urine Appearance Cloudy H (Clear) Urine pH 5.5 (5.0-9.0) Ur Specific [place] 1.011 (1.001-1.035) Urine Protein Trace (Negative) mg/dL Urine Glucose (UA) Trace H (Negative) mg/dL Assessment and Plan Assessment and plan (1) Status post hysterectomy: Code(s): Z90.710 - Acquired absence of both cervix and uterus Status: Acute (2) Pelvic pain: Code(s): R10.2 - Pelvic and perineal pain Status: Acute (3) Obesity: Code(s): E66.9 - Obesity, unspecified Status: Acute (4) Hypertension: Code(s): I10 - Essential (primary) hypertension Status: Chronic Plan The patient showed marked improvement in appears comfortable today and is eating a regular diet. I would like to see her as an outpatient to do pelvic exam and a Pap smear i performed the cultures
[2024-11-16] MEDS: SODIUM BICARBONATE 8.4% 100 MEQ in DEXTROSE 5% 1,000 ML 1,000 ML 50 MEQ IV CONT (16:56)
[2024-11-16 17:24] LABS: Albumin Level 3.7 g/dL (3.5-5.1); Anion Gap 11 mmol/L (4-12); Blood Urea Nitrogen 62 mg/dL (7-17); Calcium 8.0 mg/dL (8.4-10.2); Carbon Dioxide 16 mmol/L (22-30); Chloride 113 mmol/L (98-107); Estimated Glomerular Filt Rate 20; Glucose 119 mg/dL (65-110); Potassium 4.7 mmol/L (3.4-5.0); Sodium 140 mmol/L (137-145)
[2024-11-17] VITALS: PULSE 67
[2024-11-17 04:00] VITALS: PULSE 67
[2024-11-17 05:30] VITALS: BP 98/62; PULSE 62; RESP 16; TEMP 36.9; O2SAT 100
[2024-11-17 06:10] LABS: Hematocrit 28.7 % (37.0-47.0); Hemoglobin 9.1 g/dL (12.0-15.0); Immature Granulocyte Percent A 0.3 % (0-0.5); Lymphocytes Absolute Auto 2.10 K/mm3 (0.9-3.2); Mean Corpuscular HGB Conc 31.7 g/dl (32-36); Mean Corpuscular Hemoglobin 27.9 pg (26-34); Mean Corpuscular Volume 88.0 fl (80-100); Nucleated Red Blood Cells Absolute Auto 0.000 K/mm3 (0.0-0.012); Nucleated Red Blood Cells Perc 0.0 % (0.0-0.2); Platelet Count Result 154 k/mm3 (150-375); Red Blood Count 3.26 M/mm3 (4.2-5.4); White Blood Count 6.1 K/mm3 (4.5-10.0)
[2024-11-17 06:34] LABS: Albumin Level 3.6 g/dL (3.5-5.1); Anion Gap 9 mmol/L (4-12); Blood Urea Nitrogen 55 mg/dL (7-17); Calcium 7.9 mg/dL (8.4-10.2); Carbon Dioxide 21 mmol/L (22-30); Chloride 110 mmol/L (98-107); Estimated Glomerular Filt Rate 20; Glucose 101 mg/dL (65-110); Magnesium 2.1 mg/dL (1.6-2.3); Potassium 4.2 mmol/L (3.4-5.0); Sodium 140 mmol/L (137-145)
[2024-11-17 08:00] VITALS: PULSE 56
[2024-11-17] MEDS: ROSUVASTATIN 10 MG TABLET PO (08:26)
[2024-11-17 10:15] VITALS: BP 113/69
--- NOTE | 2024-11-17 11:08 | P.DS_ITS ---
DS: Admitting Diagnosis Discharge Date 11/17/24 Admitting Diagnosis - abdominal pain - ALMA ROSA DS: Discharge Diagnosis Discharge Diagnosis (1) Abdominal pain: Qualifiers: Abdominal location: lower abdomen, unspecified Qualified Code(s): R10.30 - Lower abdominal pain, unspecified Code(s): R10.9 - Unspecified abdominal pain Status: Acute (2) Acute kidney injury superimposed on CKD: Code(s): N17.9 - Acute kidney failure, unspecified; N18.9 - Chronic kidney disease, unspecified Status: Acute (3) Hyperkalemia: Code(s): E87.5 - Hyperkalemia Status: Chronic (4) Hypertension: Code(s): I10 - Essential (primary) hypertension Status: Chronic (5) Iron deficiency anemia secondary to blood loss (chronic): Code(s): D50.0 - Iron deficiency anemia secondary to blood loss (chronic) Status: Acute (6) Metabolic acidosis: Code(s): E87.20 - Acidosis, unspecified Status: Acute DS: Summary Hospital Course Reason for hospitalization: - abdominal pain - ALMA ROSA Hospital Course: Patient is a 39-year-old female with history of hypertension and chronic kidney disease, s/p hysterectomy and L oophorectomy who presented to the ED for lower abdominal pain. In the ED, laboratory workup revealed WBC of 7.3, hemoglobin 11, platelet count 181. Chem panel showed sodium 141, potassium 5.8, chloride 115, bicarbonate 12, BUN 81, creatinine 3.39 and blood glucose of 88. Lipase was 548. Urinalysis was negative for UTI. CT abdomen pelvis was performed which showed small amount of complex fluid in the cul-de-sac which may be due to hemoperitoneum are complex ascites such as loosening of pelvic inflammatory disease of peritonitis. Moderate atrophy of the right kidney and scattered mild cortical scarring at the left kidney. Transvaginal ultrasound was performed which showed a surgically absent uterus left ovary is not visualized small amount of nonspecific complex fluid in the pe lvis was noted. Patient was admitted for further management of abdominal pain and ALMA ROSA. Upon admission, patients abdominal pain had nearly resolved. Gynecology consulted - suspect pelvic pain may be secondary to a ruptured hemorrhagic cyst of the ovary. No surgical intervention warranted. If symptoms recur, would recommend repeat ultrasound outpatient. Patient's abdominal exam remained benign, her vitals remained stable and she reamined pain free. Upon admission, patient's Cr was 3.39 which was worsening from her baseline. She does have a history of CKD and is following closely with a plywood and veneer repairer at an outside facility. Etiology of her CKD is not entirely known yet. 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 Her Cr and metabolic acidosis improved with bicarb infusion suggesting a prerenal etiology. Hyperkalemia resolved with Lokelma x2 doses. Nephrology followed and recommended to hold patient's lisinopril and chlorthalidone until patient fol lows up with her plywood and veneer repairer and repeat BMP is obtained. She was encouraged to obtain a blood pressure cuff and keep a log of blood pressures. She was instructed to obtain a repeat BMP in 5-7 days. She does not have a PCP so she was provided with a list of providers accepting new patients and was instructed to follow-up with the on-call physician in 1 week. She was encouraged to maintain adequate hydration. Patient was discharged home in stable condition. Strict return precautiosn discussed. Time Spent with Patient Time attestation: Total time spent providing and/or coordinating discharge services: Time spent: Greater than 30 minutes Exam Narrative: General: NAD, well-appearing Eyes: EOMI ENT: neck supple Cardiovascular: Regular rate and rhythm Respiratory: Clear to auscultation, respirations even and unlabored on RA Gastrointestinal: Soft, non tender Genitourinary: no suprapubic tenderness Musculoskeletal: No edema Skin: warm, dry Neuro: Alert. Psych: Mood appropriate DS: Data Data Completed and Pending Labs on day of discharge: Labs from last 24 hours 11/17/24 11/16/24 05:21 16:56 WBC 6.1 RBC 3.26 L Hgb 9.1 L Hct 28.7 L MCV 88.0 MCH 27.9 MCHC 31.7 L RDW 14.6 H Plt Count 154 MPV 10.9 H Immature Gran % (Auto) 0.3 Neut % (Auto) 55.6 Lymph % (Auto) 34.3 Alger % (Auto) 7.7 Eos % (Auto) 1.8 Baso % (Auto) 0.3 Lymph # (Auto) 2.10 [place] # (Auto) 0.5 Eos # (Auto) 0.1 Baso # (Auto) 0.0 Abs Immat Gran (auto) 0.02 Absolute Neuts (auto) 3.4 Absolute Nucleated RBC 0.000 Nucleated RBC % 0.0 Sodium 140 140 Potassium 4.2 4.7 Chloride 110 H 113 H Carbon Dioxide 21 L 16 L Anion Gap 9 11 BUN 55 H 62 H Creatinine 2.69 H 2.67 H Estim Creat Clear Calc Not Reportable Not Reportable Estimated GFR 20 L 20 L Glucose 101 119 H Calcium 7.9 L 8.0 L Phosphorus 4.2 4.5 Magnesium 2.1 Albumin 3.6 3.7 Discharge Plan Discharge Attending physician on discharge: Chastity Dunn Consulting providers: Bill Oneal; Keyanna Cervantes; Dena Gallo; Akin Stoddard Discharging Clinician: Keyanna Cervantes Anticipated Discharge Date/Time: 11/17/24 10:59 Patient Disposition: Home Activity: as tolerated Diet: regular and renal Discharge Instructions: Take all medications as prescribed. Establish with a new primary care doctor. Follow up with the on-call internal medicine physician for hospital follow-up in 1 week. Have your lab work repeated in 5 days. Make sure you are staying hydrated especially if being exposed to the heat. Follow-up with your plywood and veneer repairer as soon as possible. Holding your lisinopril and chlorthalidone for now due to low blood pressure. Obtain a blood pressure cuff and check your blood pressure 1 to 2 times daily. Keep a log to bring to your follow-up appointments. If your blood pressure is consistently greater than 140/90 prior to follow-up appointments, call your kidney doctor to restart medication. Return to the emergency department if you develop chest pain, shortness of breath, persistent fever >100.4, confusion, loss of consciousness. Patient Language: Yoruba Stand Alone Forms: General Discharge Information, Work/School Release IP Follow-up/Referrals: Akin Stoddard MD [Physician, [employer] DIE MACHINE HELPER] - Call for Appointment Referral Note: hospital follow-up for pelvic exam Bill Oneal MD [Physician, Family Practice] - Call for Appointment Referral Note: hospital follow-up Discharge Medications: Continued rosuvastatin 10 mg tablet 10 mg PO DAILY dapagliflozin propanediol [Farxiga] 5 mg tablet 5 mg PO DAILY cholecalciferol (vitamin D3) 62.5 mcg (2,500 unit) capsule 62.5 mcg PO DAILY Held chlorthalidone 25 mg tablet 25 mg PO DAILY Hold Instructions: Resume on 11/23/24. Hold until kidney function is rechecked and you have your hospital follow-up appointment lisinopril 10 mg tablet 10 mg PO DAILY Hold Instructions: Resume on 11/23/24. Hold until kidney function is rechecked and you have your hospital follow-up appointment Other Ambulatory Orders: Basic Metabolic Panel (Routine) Timeframe: 1 Week Location: Determined by Patient Ordered By: Keyanna Cervantes Date of admission: 11/15/24 17:10 Primary Care Provider: PHYSICIAN,INSTRUCTIONAL MATERIAL DIRECTOR Admitting Provider: Avinash Mooney Attending physician on admission: Avinash Mooney Condition: Stable
[2024-11-20 14:08] LABS: Immunoglobulin A, Qn 327 mg/dL (87-352); Immunoglobulin G, Qn 1605 mg/dL (586-1602); Immunoglobulin M, Qn 180 mg/dL (26-217)
== END 2024-11-17 12:15 | disposition home or self-care (01) | DRG 251 ==
LOC: ANHED 14:02 → ANH3MEDSUR 18:09
PROVIDERS: Emergency Medicine; Internal Medicine Nephrology; Physician Assistant; Admitting Provider Internal Medicine; Emergency Provider Student in an Organized Health Care Education/Training Program; Visit Provider Internal Medicine
DX: R10.30 Lower abdominal pain, unspecified (principal); N17.9 Acute kidney failure, unspecified; I12.9 Hypertensive chronic kidney disease with stage 1 through stage 4 chronic kidney disease, or unspecified chronic kidney disease; N18.32 Chronic kidney disease, stage 3b; D50.0 Iron deficiency anemia secondary to blood loss (chronic); E66.9 Obesity, unspecified; E87.20 Acidosis, unspecified
CPT/HCPCS: 36415; 74176; 76830; 80048; 80053; 80069; 81001; 81050; 82550; 82570; 82607; 82728; 82746; 82784; 83540; 83550; 83605; 83690; 83735; 84156; 84300; 84540; 85025; 85999; 86334; 87040; 93005; 96360; 99285; A9270; J1200; J2543; J7030; J7070

== ENCOUNTER 2024-11-23 09:45 | Outpatient (CLI) | payer OTHER, SELFPAY ==
--- OUTSIDE RECORDS SUMMARY | 2024-11-23 09:50 | XMS_ITS | Clinical Summary ---
Author Organization [facility] Address [address] [place] [address] Care Team Providers Care Maintenance Painter Apprentice Name Role Phone Rosi Irizarry MD Primary [...] Plan of Treatment Not on file Insurance [facility] Care Teams Maintenance Painter Apprentice Relationship Specialty Start Date End Date Rosi Irizarry MD [address] [place] [id number] PCP - General Family Medicine 09/02/21
--- OUTSIDE RECORDS SUMMARY | 2024-11-23 09:50 | XMS_ITS | Clinical Summary ---
Author Organization [facility] Facility Address [address] [place] [id number] Care Team Providers Care Used Equipment Sales Representative Name Role Phone Unavailable Primary Care Provider [...] Type Department Care Team Description 10/02/2024 Refill [facility] [address] [place] [phone] Jacinto Krishnamurthy MD 09/12/2024 Orders Only [facility] [address] [phone] Jacinto Krishnamurthy MD Chronic kidney disease stage 3B (HCC); Prediabetes; Essential hypertension; Hyperlipidemia, not otherwise specified; Steatotic liver disease; Obese class II; Acne vulgaris; Vitamin D deficiency, not otherwise specified 09/04/2024 10:30 AM CDT Office Visit [facility], [facility] [address] [phone] Jacinto Krishnamurthy MD Chronic kidney disease stage 3B (HCC) (Primary Dx); Essential hypertension; Hyperglycemia, not otherwise specified; Hyperlipidemia, not otherwise specified; Increased liver function; Iron deficiency anemia, not otherwise specified; Prediabetes; Proteinuria, not otherwise specified; Steatotic liver disease; Vitamin D deficiency, not otherwise specified 09/03/2024 Documentation Only [facility] [address] [place] [phone] Jacinto Krishnamurthy MD 08/29/2024 Documentation Only [facility] [address] [place] [phone] Jacinto Krishnamurthy MD 08/29/2024 Documentation Only [facility], [facility] [address] [place] [phone] Jacinto Krishnamurthy MD 08/29/2024 Documentation Only [facility] [address] [place] [phone] Jacinto Krishnamurthy MD 08/29/2024 Documentation Only [facility] [address] [place] [phone] Jacinto Krishnamurthy MD 08/23/2024 Documentation Only [facility], [address] [phone] Jacinto Krishnamurthy MD from Last [...] Description 12/04/2024 11:15 AM CDT Office Visit [facility], [facility] [address] [facility] [address] [place] [phone] Jacinto Krishnamurthy MD [address] [phone] Health Maintenance Due Date Last Done Comments [...] 10.7 mg/dL Phosphorus, Serum 4.7 eGFR Non-Afr [place] 23(L) Uric Acid 10.7 MG/DL PTH 106.6 PG/ML Vitamin D, 25-OH, Total 29.6 ng/mL Hemoglobin A1C 5.3 4.0 - 6.0 Protein Urine Random 38 Creatinine, Urine Random 46.3 mg/dL Urine Protein/Creatini ne Ratio 0.82(H) mg/g creat Glucose, UA Negative mg/dL Bilirubin, UA Negative Ketones, UA Negative Urine Specific [place] 1.008 Blood, UA Negative Faustino/ul pH, UA [...] from Last 3 Months Insurance Medicaid [place] Medicaid
[2024-11-23 11:01] LABS: Anion Gap 11 mmol/L (4-12); Blood Urea Nitrogen 52 mg/dL (7-17); Calcium 9.0 mg/dL (8.4-10.2); Carbon Dioxide 20 mmol/L (22-30); Chloride 109 mmol/L (98-107); Estimated Glomerular Filt Rate 16; Glucose 92 mg/dL (65-110); Potassium 5.2 mmol/L (3.4-5.0); Sodium 140 mmol/L (137-145)
== END 2024-11-23 09:46 | disposition home or self-care (01) ==
LOC: ANHLAB 09:47
PROVIDERS: Visit Provider Physician Assistant
DX: N17.9 Acute kidney failure, unspecified (principal)
CPT/HCPCS: 36415; 80048

== ENCOUNTER 2024-11-27 08:35 | Outpatient (CLI) | payer OTHER, SELFPAY ==
--- OUTSIDE RECORDS SUMMARY | 2024-11-27 08:41 | XMS_ITS | Clinical Summary ---
Author Organization [facility] Address [address] [place] [address] Care Team Providers Care Windscreen Fitter Name Role Phone Rosi Irizarry MD Primary [...] Plan of Treatment Not on file Insurance [facility] Care Teams Windscreen Fitter Relationship Specialty Start Date End Date Rosi Irizarry MD [address] [place] [id number] PCP - General Family Medicine 09/02/21
--- OUTSIDE RECORDS SUMMARY | 2024-11-27 08:41 | XMS_ITS | Clinical Summary ---
Author Organization [facility] Facility Address [address] [place] [address] Care Team Providers Care Manager Of Environmental Services Name Role Phone Unavailable Primary Care Provider [...] Type Department Care Team Description 10/02/2024 Refill [facility], [address] [phone] Jacinto Krishnamurthy MD 09/12/2024 Orders Only [facility], [facility] [address] [phone] Jacinto Krishnamurthy MD Chronic kidney disease stage 3B (HCC); Prediabetes; Essential hypertension; Hyperlipidemia, not otherwise specified; Steatotic liver disease; Obese class II; Acne vulgaris; Vitamin D deficiency, not otherwise specified 09/04/2024 10:30 AM CDT Office Visit [facility], [facility] [address] [phone] Jacinto Krishnamurthy MD Chronic kidney disease stage 3B (HCC) (Primary Dx); Essential hypertension; Hyperglycemia, not otherwise specified; Hyperlipidemia, not otherwise specified; Increased liver function; Iron deficiency anemia, not otherwise specified; Prediabetes; Proteinuria, not otherwise specified; Steatotic liver disease; Vitamin D deficiency, not otherwise specified 09/03/2024 Documentation Only [facility], [address] [phone] Jacinto Krishnamurthy MD 08/29/2024 Documentation Only [facility], [facility] [address] [facility] [address] [place] [phone] Jacinto Krishnamurthy MD 08/29/2024 Documentation Only [facility], [facility] [address] [facility] [address] [place] [phone] Jacinto Krishnamurthy MD 08/29/2024 Documentation Only [facility], [address] [phone] Jacinto Krishnamurthy MD 08/29/2024 Documentation Only [facility] [address] [place] [phone] Jacinto Krishnamurthy MD from Last 3 [...] 12/04/2024 11:15 AM CDT Office Visit [facility], [facility] [address] [facility] [address] [place] [phone] Jacinto Krishnamurthy MD [address] [phone] Health Maintenance Due Date Last Done [...] 10.7 mg/dL Phosphorus, Serum 4.7 eGFR Non-Afr Prydeinig 23(L) Uric Acid 10.7 MG/DL PTH 106.6 PG/ML Vitamin D, 25-OH, Total 29.6 ng/mL Hemoglobin A1C 5.3 4.0 - 6.0 Protein Urine Random 38 Creatinine, Urine Random 46.3 mg/dL Urine Protein/Creatini ne Ratio 0.82(H) mg/g creat Glucose, UA Negative mg/dL Bilirubin, UA Negative Ketones, UA Negative Urine Specific [place] 1.008 Blood, UA Negative Faustino/ul pH, UA [...] 139 HDL 33 mg/dL LDL-Calculated 55 08/29/2024 Historical Provider LAB BLOOD ORDERABLES Gina l Result from Last 3 Months Insurance Medicaid [place] Medicaid
[2024-11-27 09:30] LABS: Hematocrit 34.6 % (37.0-47.0); Hemoglobin 10.7 g/dL (12.0-15.0); Immature Granulocyte Percent A 0.5 % (0-0.5); Lymphocytes Absolute Auto 1.87 K/mm3 (0.9-3.2); Mean Corpuscular HGB Conc 30.9 g/dl (32-36); Mean Corpuscular Hemoglobin 27.9 pg (26-34); Mean Corpuscular Volume 90.3 fl (80-100); Nucleated Red Blood Cells Absolute Auto 0.000 K/mm3 (0.0-0.012); Nucleated Red Blood Cells Perc 0.0 % (0.0-0.2); Platelet Count Result 207 k/mm3 (150-375); Red Blood Count 3.83 M/mm3 (4.2-5.4); White Blood Count 6.1 K/mm3 (4.5-10.0)
[2024-11-27 09:47] LABS: Alanine Aminotransferase 19 U/L (6-35); Albumin Level 4.3 g/dL (3.5-5.1); Alkaline Phosphatase 66 U/L (38-126); Anion Gap 12 mmol/L (4-12); Aspartate Amino Transferase 26 U/L (14-36); Bilirubin,Total 0.4 mg/dL (0.2-1.3); Blood Urea Nitrogen 46 mg/dL (7-17); Calcium 9.0 mg/dL (8.4-10.2); Carbon Dioxide 19 mmol/L (22-30); Chloride 111 mmol/L (98-107); Cholesterol 127 mg/dL (0-200); Estimated Glomerular Filt Rate 22; Glucose 97 mg/dL (65-110); HDL Direct 26 mg/dL; Potassium 4.3 mmol/L (3.4-5.0); Sodium 142 mmol/L (137-145); Total Protein 8.3 g/dL (6.3-8.2); Triglycerides 181 mg/dL (<150)
[2024-11-27 09:57] LABS: Add Urine Microscopic? YES; Appearance Urine Clear (Clear); Glucose Urine UA 2+ mg/dL (Negative); Leukocyte Esterase Ur Negative LEU/UL (Negative); Nitrate Urine Negative (Negative); Non Pathogenic Casts 0-2; Specific Grav Ur 1.014 (1.001-1.035)
[2024-11-27 10:01] LABS: Hemoglobin A1C 4.7 % (<5.7); Total Protein Urine Random 53 mg/dL; Ur Ttl Prot Creatinine Ratio 0.48 mg/mg (0-0.20)
[2024-11-27 10:06] LABS: Parathyroid Intact 138.5 pg/mL (14.5-75.2)
== END 2024-11-27 08:36 | disposition home or self-care (01) ==
LOC: ANHLAB 08:37
PROVIDERS: Visit Provider Internal Medicine Nephrology
DX: N18.32 Chronic kidney disease, stage 3b (principal); R73.9 Hyperglycemia, unspecified; R94.5 Abnormal results of liver function studies; R73.03 Prediabetes; K76.0 Fatty (change of) liver, not elsewhere classified; E55.9 Vitamin D deficiency, unspecified; I12.9 Hypertensive chronic kidney disease with stage 1 through stage 4 chronic kidney disease, or unspecified chronic kidney disease
CPT/HCPCS: 36415; 80053; 80061; 81001; 82306; 82570; 83036; 83970; 84100; 84156; 85025

== ENCOUNTER 2025-02-11 03:55 | Emergency (ER) | payer OTHER, SELFPAY ==
--- NOTE | ~2025-02-11 | XR_ITS ---
Examination: XR ankle RT min 3V Clinical History: Pain/ ROLLED ANKLE 2DAYS AGO Comparison: None Technique: 3 views right ankle Findings/impression: 1. No fracture or dislocation right ankle. 2. Calcaneal enthesophyte at plantar fascia insertion site. Reviewed, dictated and finalized at location R. [employer]
[2025-02-11 04:15] VITALS: BP 150/87; PULSE 86; RESP 18; TEMP 36.3; O2SAT 100
[2025-02-11 07:41] VITALS: BP 149/104; PULSE 75; RESP 22; O2SAT 100
--- NOTE | 2025-02-11 08:09 | ED.GENADULT ---
HPI - General Adult General Chief complaint: Extremity Problem,Nontraumatic Stated complaint: R ankle pain Time Seen by Provider: 02/11/25 07:38 History of Present Illness HPI narrative: 39-year-old female present to the emergency department for evaluation for right ankle pain. Patient states she was having some calf tightness a few days ago and was rolling her ankle and felt a pop the right lateral ankle. Patient states she had no significant immediate pain at that time but states over the course of the next day she had worsening pain and feels that she is unable to ambulate on that ankle due to right lateral ankle pain. Patient denies any current calf pain or tenderness. Patient states she is having difficulty ambulating at this time. Related Data Home Medications ?Medication ?Instructions ?Recorded ?Confirmed ?Last Taken ?Type chlorthalidone 25 mg tablet 25 mg PO DAILY 11/15/24 11/15/24 Unknown History Held on 11/17/24. Instructions: Resume on 11/23/24. Hold until kidney function is rechecked and you have your hospital follow-up appointment cholecalciferol (vitamin D3) 62.5 62.5 mcg PO DAILY 11/15/24 11/15/24 Unknown History mcg (2,500 unit) capsule dapagliflozin propanediol 5 mg 5 mg PO DAILY 11/15/24 11/15/24 Unknown History tablet (Farxiga) lisinopril 10 mg tablet 10 mg PO DAILY 11/15/24 11/15/24 Unknown History Held on 11/17/24. Instructions: Resume on 11/23/24. Hold until kidney function is rechecked and you have your hospital follow-up appointment rosuvastatin 10 mg tablet 10 mg PO DAILY 11/15/24 11/15/24 Unknown History Allergies Allergy/AdvReac Type Severity Reaction Status Date / Time piperacillin (From Zosyn) Allergy Intermediate Chest Pain Verified 11/16/24 04:28 tazobactam (From Zosyn) Allergy Intermediate Chest Pain Verified 11/16/24 04:28 Review of Systems Review of Systems: All systems reviewed & are unremarkable except as noted in HPI and below PMFSH Past Medical History Medical History (Updated 02/11/25 @ 08:13 by Pedro Villegas MD) Morbid obesity Hx of migraines Acne Anemia Surgical History Surgical History S/P vaginal hysterectomy S/P endometrial ablation History of hysteroscopy History of tubal ligation Family History Family History Father Diabetes mellitus Liver transplant recipient Mother Diabetes mellitus Grandparent Diabetes mellitus Breast cancer Social History Social History Smoking status: Never smoker Second hand tobacco smoke exposure: No Alcohol intake: never Alcohol use details: RARE Substance use: never Substance use type: does not use Lack of Transportation: No Lack of Food: Never True Current Housing: I Have Housing Concerned About Future Housing: No Difficulty Paying Gas/Electric Bills: No Difficulty Paying for Meds: No Currently Unemployed: No Education: Grade School Difficulty w/ Childcare or Family Care: No Living arrangements: with family Additional living arrangements comments: CHILDREN Gender identity (if verbalized by the patient): Female Sexual Orientation (if Verbalized by the Patient): Straight or Heterosexual Spiritual care concerns: No Exam Narrative: APPEARANCE: Well appearing, no pain, no distress, well-nourished. HEAD: normocephalic, atraumatic. EYES: PERRLA/EOMI, conjunctivae clear. NOSE: Normal no drainage EARS:TMS clear with good light reflex. THROAT: Pharynx clear, no exudate. NECK: Supple. No adenopathy, no masses. RESPIRATORY: Airway patent, respirations nonlabored. Clear to auscultation bilaterally, no rales, rhonchi, wheezing. CARDIOVASCULAR: Regular rate and rhythm without murmurs rubs or gallops. ABDOMINAL: Soft, nontender, nondistended, normal bowel sounds MUSCULOSKELETAL: Right lateral ankle tenderness to palpation with some swelling. No calf tenderness to palpation, no lower extremity edema NEURO: Alert. Cranial nerves II through XII intact. Good gait. Good coordination SKIN: Warm, dry. Normal Color Course Vital Signs Vital signs: Vital Signs Temperature 97.4 F L 02/11/25 04:15 Pulse Rate 86 02/11/25 04:15 Respiratory Rate 18 02/11/25 04:15 Blood Pressure 150/87 H 02/11/25 04:15 Pulse Oximetry 100 02/11/25 04:15 Oxygen Delivery Room Air 02/11/25 04:15 Temperature 97.4 F L 02/11/25 04:15 Pulse Rate 84 02/11/25 08:42 Respiratory Rate 16 02/11/25 08:42 Blood Pressure 158/96 H 02/11/25 08:42 Pulse Oximetry 100 02/11/25 08:42 Oxygen Delivery Room Air 02/11/25 04:15 Medical Decision Making MDM Narrative Medical decision making narrative: 39-year-old female present to the emergency department for evaluation for right ankle pain. X-ray was negative for acute fracture dislocation. Patient was provided Luis Alberto wrap and ambulate on crutches. Patient was advised to take Tylenol for pain control. Patient is requesting a work note at this time. Patient was encouraged of close follow-up with her primary care physician. Differential Diagnosis Differential Diagnosis: Ankle sprain, ankle fracture, DVT, muscle strain Vital Signs Vital Signs: Vital Signs Temperature 97.4 F L 02/11/25 04:15 Pulse Rate 86 02/11/25 04:15 Respiratory Rate 18 02/11/25 04:15 Blood Pressure 150/87 H 02/11/25 04:15 Pulse Oximetry 100 02/11/25 04:15 Oxygen Delivery Room Air 02/11/25 04:15 Temperature 97.4 F L 02/11/25 04:15 Pulse Rate 84 02/11/25 08:42 Respiratory Rate 16 02/11/25 08:42 Blood Pressure 158/96 H 02/11/25 08:42 Pulse Oximetry 100 02/11/25 08:42 Oxygen Delivery Room Air 02/11/25 04:15 Imaging Data My impression: X-ray: No acute fracture or dislocation Discharge Plan Discharge Clinical Impression: Acute ankle pain Patient Disposition: Home Condition: Stable Instructions: Antibiotic Form, Ankle Sprain (ED), Crutch Instructions (ED) Additional Instructions: Luis Alberto wrap for comfort, crutches for nonweightbearing over the next 3-5 days. Tylenol for pain control. Have close follow-up with your primary care physician. If you have any worsening symptoms then please call or return to the emergency department. Patient Language: Ecuadorean Prescriptions: No Action chlorthalidone 25 mg tablet 25 mg PO DAILY lisinopril 10 mg tablet 10 mg PO DAILY rosuvastatin 10 mg tablet 10 mg PO DAILY dapagliflozin propanediol [Farxiga] 5 mg tablet 5 mg PO DAILY cholecalciferol (vitamin D3) 62.5 mcg (2,500 unit) capsule 62.5 mcg PO DAILY Follow-up/Referrals: UNKNOWN,DOCTOR [Primary Care Provider] Stand Alone Forms: Work/School Release IP
[2025-02-11 08:42] VITALS: BP 158/96; PULSE 84; RESP 16; O2SAT 100
== END 2025-02-11 08:45 | disposition home or self-care (01) ==
PROVIDERS: Emergency Provider Emergency Medicine
DX: M25.571 Pain in right ankle and joints of right foot (principal); Z86.2 Personal history of diseases of the blood and blood-forming organs and certain disorders involving the immune mechanism; Z90.710 Acquired absence of both cervix and uterus
CPT/HCPCS: 73610; 99283